=== PATIENT | male | born 1950 | race Caucasian/White ===

== ENCOUNTER → 2017-03-19 08:31 | Outpatient (CLI) | payer OTHER, SELFPAY ==
[2017-03-19 12:03] LABS: Chol/HDL Ratio 2.1 (1-3.5); Cholesterol 142 mg/dL (140-200); HDL Cholesterol 69 mg/dL (27-67); LDL Cholesterol 61 mg/dL (0-130); Thyroid Stimulating Hormone 2.69 uIU/ml (0.358-3.740); Triglycerides 58 mg/dL (30-200); VLDL Cholesterol 12 mg/dL (0-40)
[2017-03-21 18:17] LABS: Parathyroid Hormone Intact 60 pg/mL (15-65)
[2017-03-21 18:18] LABS: Vitamin D 25 Hydroxy 34.6 ng/mL (30.0-100.0)
== END ==
PROVIDERS: PCP Family Medicine; Visit Provider Internal Medicine Nephrology
DX: E78.5 Hyperlipidemia, unspecified (principal); I10 Essential (primary) hypertension; E03.9 Hypothyroidism, unspecified; E56.9 Vitamin deficiency, unspecified; N18.3 Chronic kidney disease, stage 3 (moderate); Z85.47 Personal history of malignant neoplasm of testis
CPT/HCPCS: 36415; 80061; 82652; 83970; 84443; 84550

== ENCOUNTER → 2017-07-23 08:30 | Outpatient (CLI) | payer OTHER, SELFPAY ==
[2017-07-23 13:03] LABS: Chol/HDL Ratio 2.3 (1-3.5); Cholesterol 131 mg/dL (140-200); HDL Cholesterol 56 mg/dL (27-67); LDL Cholesterol 60 mg/dL (0-130); Thyroid Stimulating Hormone 1.34 uIU/ml (0.358-3.740); Triglycerides 74 mg/dL (30-200); Uric Acid 6.9 mg/dL (2.6-7.2); VLDL Cholesterol 15 mg/dL (0-40)
[2017-07-24 10:09] LABS: Vitamin D 25 Hydroxy 32.9 ng/mL (30.0-100.0)
[2017-07-27 13:26] LABS: Parathyroid Hormone Intact 57 pg/mL (15-65)
== END ==
PROVIDERS: Visit Provider Internal Medicine Nephrology
DX: E78.5 Hyperlipidemia, unspecified (principal); I10 Essential (primary) hypertension; E03.9 Hypothyroidism, unspecified; E56.9 Vitamin deficiency, unspecified; Z85.47 Personal history of malignant neoplasm of testis; N18.3 Chronic kidney disease, stage 3 (moderate)
CPT/HCPCS: 36415; 80061; 82652; 83970; 84443; 84550

== ENCOUNTER → 2018-01-21 09:12 | Outpatient (CLI) | payer MEDICARE, SELFPAY ==
[2018-01-21 10:29] LABS: Chol/HDL Ratio 1.9 (1-3.5); Cholesterol 140 mg/dL (140-200); HDL Cholesterol 75 mg/dL (27-67); LDL Cholesterol 56 mg/dL (0-130); Thyroid Stimulating Hormone 2.02 uIU/ml (0.358-3.740); Triglycerides 45 mg/dL (30-200); Uric Acid 6.3 mg/dL (2.6-7.2); VLDL Cholesterol 9 mg/dL (0-40)
[2018-01-22 09:16] LABS: Vitamin D 25 Hydroxy 26.6 ng/mL (30.0-100.0)
[2018-01-23 07:02] LABS: Parathyroid Hormone Intact 53 pg/mL (15-65)
== END ==
PROVIDERS: Visit Provider Internal Medicine Nephrology
DX: E78.5 Hyperlipidemia, unspecified; E03.9 Hypothyroidism, unspecified; E55.9 Vitamin D deficiency, unspecified; N18.3 Chronic kidney disease, stage 3 (moderate); Z85.47 Personal history of malignant neoplasm of testis
CPT/HCPCS: 36415; 80061; 82652; 83970; 84443; 84550

== ENCOUNTER → 2018-05-06 08:20 | Outpatient (CLI) | payer MEDICARE, SELFPAY ==
[2018-05-06 10:02] LABS: Magnesium 1.8 mg/dL (1.4-2.2); Uric Acid 6.6 mg/dL (2.6-7.2)
[2018-05-07 15:32] LABS: Parathyroid Hormone Intact 44 pg/mL (15-65)
== END ==
PROVIDERS: Visit Provider Internal Medicine Nephrology
DX: N18.3 Chronic kidney disease, stage 3 (moderate) (principal); E78.5 Hyperlipidemia, unspecified; E03.9 Hypothyroidism, unspecified; E56.9 Vitamin deficiency, unspecified; Z85.47 Personal history of malignant neoplasm of testis
CPT/HCPCS: 36415; 82652; 83735; 83970; 84550

== ENCOUNTER 2018-07-27 15:15 | Emergency (ER) | payer MEDICARE, SELFPAY ==
[2018-07-27 15:30] VITALS: BP 139/71; PULSE 71; RESP 16; TEMP 36.9; O2SAT 100; BMI 22.5
--- NOTE | 2018-07-27 15:48 | HMH.EDUTC ---
[facility] [place] Disposition Clinical Impression: Urticaria Disposition: Home, Self-Care Condition on Discharge: Good Instructions: DI for Hives, Hives, Urticaria (Alternative Therapy) Additional Instructions: Go home look at everything and make sure that nothing has changed at home *Follow up with family doctor if symptoms continue *Return if needed *Straight to ER if any life threatening symptoms Over the counter Benadryl if you have been told that it is ok to take at first onset of rash may help with itching and breakout of rash Referrals: Nura Teran MD [Primary Care Provider] - As needed Time of Disposition: 15:57 Medical Decision Making - Alonzo Inquiry Pt receiving controlled substance: No Alonzo was queried for this patient: No Vital Signs: 07/27/18 15:30 Temperature 98.5 F Temperature Source Oral Pulse Rate [Right Brachial] 71 Respiratory Rate 16 Blood Pressure [Right Arm] 139/71 Blood Pressure Mean [Right Arm] 93 Blood Pressure Source [Right Arm] Automatic Cuff Blood Pressure Position [Right Arm] Sitting 02 Sat by Pulse Oximetry 100 Oxygen Delivery Method Room Air [facility] [place] HPI - General Stated complaint: Rash Time Seen by Provider: 07/27/18 15:45 Mode of Arrival: Family Vehicle Source of Information: Patient Limitations: No Limitations Description of Symptoms (Recalled from Triage Doc. by RN): C/O BROKE OUT IN RASH UNDER ARMS AND AROUND WAIST HEENT Symptoms (Recalled from RN notes): No Resp Symptoms (Recalled from RN notes): No Skin Symptoms (Recalled from RN notes): Yes MS Symptoms (Recalled from RN notes): No Functional Status (Recalled from RN notes): N/A - History of Present Illness Provider Complaint: Patient states that he was outside spraying his tomatoes earlier today and then drove to [place] State that on his way to [place] he started itching States that he looked down and noticed rash on his chest abdomen upper arms and waistline State that he hasn't changed anything at home State that he came home and got in the shower and changed clothes and rash is a little better - Related Data Home Medications Medication Instructions Recorded Confirmed amlodipine 5 mg tablet 5 mg PO ONCE 09/04/17 05/28/18 aspirin 81 mg tablet,delayed 81 mg PO ONCE 09/04/17 05/28/18 release atorvastatin 40 mg tablet 20 mg PO ONCE 09/04/17 05/28/18 doxazosin 1 mg tablet 2 mg PO ONCE 09/04/17 05/28/18 levothyroxine 25 mcg capsule 50 mcg PO ONCE 09/04/17 05/28/18 trazodone 50 mg tablet 50 mg PO ONCE 09/04/17 05/28/18 vitamin B complex-vitamin C-folic 1 tab PO ONCE 09/04/17 05/28/18 acid 0.8 mg tablet Folic Acid/Vit B Complex and C 0.8 mg PO DAILY 09/26/17 05/28/18 [Trudi-Dain Tablet] Allergies Allergy/AdvReac Type Severity Reaction Status Date / Time No Known Allergies Allergy Verified 05/28/18 12:27 - Worker's Comp Is this a Worker's Comp case?: No [facility] History - Hepatitis A Screen Drug use history?: No High risk sexual behaviors?: No History of sexually transmitted infection?: No Currently employed?: No Childcare worker?: No Do you have indoor plumbing?: Yes Do you have electricity?: Yes Attestation statement:: This patient has been screened for Hepatitis A risk factors. I have reviewed the patient's past medical history: Yes Medical History: Reports:: Cancer, Hyperlipidemia, Hypertension Denies:: Diabetes Mellitus Type 1, Diabetes Mellitus Type 2, Internal Pacemaker, Lung Disease, Seizures Other Medical History: Reports: Thyroid Disease, Other (easy bruising) Laterality Cases: Bilateral: Tonsillectomy Other Surgeries: Yes: Cancer Surgery, Colonoscopy, Other (testicular ). No: Pacemaker Amputation: No Fractures: No - Social History Smoking Status: Never smoker Alcohol Intake: never Substance Use Type: denies use Occupational Status: retired - Psychiatric History Expresses thoughts of harming self/others: None Suicide Plan Description: No Plan Family Hx:: No signifi
--- NOTE | 2018-07-27 15:52 | ED_ITS ---
[facility] [place] Disposition Clinical Impression: Urticaria Disposition: Home, Self-Care Condition on Discharge: Good Instructions: DI for Hives, Hives, Urticaria (Alternative Therapy) Additional Instructions: Go home look at everything and make sure that nothing has changed at home *Follow up with family doctor if symptoms continue *Return if needed *Straight to ER if any life threatening symptoms Over the counter Benadryl if you have been told that it is ok to take at first onset of rash may help with itching and breakout of rash Referrals: Nura Teran MD [Primary Care Provider] - As needed Time of Disposition: 15:57 Medical Decision Making - Alonzo Inquiry Pt receiving controlled substance: No Alonzo was queried for this patient: No Vital Signs: 07/27/18 15:30 Temperature 98.5 F Temperature Source Oral Pulse Rate [Right Brachial] 71 Respiratory Rate 16 Blood Pressure [Right Arm] 139/71 Blood Pressure Mean [Right Arm] 93 Blood Pressure Source [Right Arm] Automatic Cuff Blood Pressure Position [Right Arm] Sitting 02 Sat by Pulse Oximetry 100 Oxygen Delivery Method Room Air [facility] [place] HPI - General Stated complaint: Rash Time Seen by Provider: 07/27/18 15:45 Mode of Arrival: Family Vehicle Source of Information: Patient Limitations: No Limitations Description of Symptoms (Recalled from Triage Doc. by RN): C/O BROKE OUT IN RASH UNDER ARMS AND AROUND WAIST HEENT Symptoms (Recalled from RN notes): No Resp Symptoms (Recalled from RN notes): No Skin Symptoms (Recalled from RN notes): Yes MS Symptoms (Recalled from RN notes): No Functional Status (Recalled from RN notes): N/A - History of Present Illness Provider Complaint: Patient states that he was outside spraying his tomatoes earlier today and then drove to [place] State that on his way to [place] he started itching States that he looked down and noticed rash on his chest abdomen upper arms and waistline State that he hasn't changed anything at home State that he came home and got in the shower and changed clothes and rash is a little better - Related Data Home Medications Medication Instructions Recorded Confirmed amlodipine 5 mg tablet 5 mg PO ONCE 09/04/17 05/28/18 aspirin 81 mg tablet,delayed 81 mg PO ONCE 09/04/17 05/28/18 release atorvastatin 40 mg tablet 20 mg PO ONCE 09/04/17 05/28/18 doxazosin 1 mg tablet 2 mg PO ONCE 09/04/17 05/28/18 levothyroxine 25 mcg capsule 50 mcg PO ONCE 09/04/17 05/28/18 trazodone 50 mg tablet 50 mg PO ONCE 09/04/17 05/28/18 vitamin B complex-vitamin C-folic 1 tab PO ONCE 09/04/17 05/28/18 acid 0.8 mg tablet Folic Acid/Vit B Complex and C 0.8 mg PO DAILY 09/26/17 05/28/18 [Trudi-Dain Tablet] Allergies Allergy/AdvReac Type Severity Reaction Status Date / Time No Known Allergies Allergy Verified 05/28/18 12:27 - Worker's Comp Is this a Worker's Comp case?: No [facility] History - Hepatitis A Screen Drug use history?: No High risk sexual behaviors?: No History of sexually transmitted infection?: No Currently employed?: No Childcare worker?: No Do you have indoor plumbing?: Yes Do you have electricity?: Yes Attestation statement:: This patient has been screened for Hepatitis A risk factors.
[2018-07-27 16:18] VITALS: BP 139/71; PULSE 71; RESP 16; TEMP 36.9; O2SAT 100
== END 2018-07-27 16:20 | disposition home or self-care (01) ==
PROVIDERS: Emergency Provider Nurse Practitioner; PCP Family Medicine
DX: L50.0 Allergic urticaria (principal); I10 Essential (primary) hypertension; E78.5 Hyperlipidemia, unspecified; E03.9 Hypothyroidism, unspecified
CPT/HCPCS: G0463; 96372; 99201

== ENCOUNTER → 2018-09-09 08:11 | Outpatient (CLI) | payer MEDICARE, SELFPAY ==
[2018-09-09 08:15] LABS: Microscopic, Urine URINE MICROSCOPIC (MICROSCOPIC)
[2018-09-09 09:01] LABS: Appearance,Urine CLEAR (Clear); Bilirubin,Urine Negative (Negative); Blood, Urine Negative (Negative); Color,Urine YELLOW (Yellow); Glucose,Urine (UA) Negative (Negative); Ketones,Urine Negative (Negative); Leukocyte Esterase,Urine Negative (Negative); Nitrate,Urine Negative (Negative); Protein,Urine Negative (Negative); Urobilinogen,Urine 0.2 EU/dl (0.2)
[2018-09-09 09:15] LABS: Albumin Level 3.6 gm/dL (3.4-5.0); Anion Gap 12.5 mEq/L (5-15); Blood Urea Nitrogen 27 mg/dL (7-18); Calcium 8.8 mg/dL (8.5-10.1); Carbon Dioxide 28 mmol/L (21.0-32.0); Chloride 107 mmol/L (98-107); Creatinine,Serum 1.83 mg/dL (0.70-1.30); Estimated Glomerular Filt Rate 37 ml/min (>60); GFR (African American) 45 ML/MIN (>60); Glucose 96 mg/dL (74-106); Phosphorous 3.5 mg/dL (2.4-4.9); Potassium 4.5 mmoL/L (3.5-5.1); Sodium 143 mmol/L (136-145); Uric Acid 7.3 mg/dL (2.6-7.2)
[2018-09-09 09:24] LABS: Bacteria,Urine Trace /lpf; WBC,Urine Occasional #/hpf (0-3)
[2018-09-11 14:19] LABS: Vitamin D 25 Hydroxy 37.2 ng/mL (30.0-100.0)
[2018-09-12 10:37] LABS: Parathyroid Hormone Intact 38 pg/mL (15-65)
== END ==
PROVIDERS: Visit Provider Internal Medicine Nephrology
DX: N18.3 Chronic kidney disease, stage 3 (moderate) (principal); E78.5 Hyperlipidemia, unspecified; E55.9 Vitamin D deficiency, unspecified; I12.9 Hypertensive chronic kidney disease with stage 1 through stage 4 chronic kidney disease, or unspecified chronic kidney disease
CPT/HCPCS: 36415; 80069; 81001; 82652; 83970; 84550

== ENCOUNTER → 2019-02-17 07:19 | Outpatient (CLI) | payer MEDICARE, SELFPAY ==
[2019-02-17 07:26] LABS: Microscopic, Urine URINE MICROSCOPIC (MICROSCOPIC)
[2019-02-17 07:54] LABS: Appearance,Urine CLEAR (Clear); Bilirubin,Urine Negative (Negative); Blood, Urine Negative (Negative); Color,Urine YELLOW (Yellow); Glucose,Urine (UA) Negative (Negative); Ketones,Urine Negative (Negative); Leukocyte Esterase,Urine Negative (Negative); Nitrate,Urine Negative (Negative); PH,Urine 6.5 (5.0-8.5); Protein,Urine Negative (Negative); Urobilinogen,Urine 0.2 EU/dl (0.2)
[2019-02-17 08:10] LABS: Squamous Epithelial Cell,Urine Occasional #/hpf (0-5); WBC,Urine Occasional #/hpf (0-3)
[2019-02-17 08:58] LABS: Uric Acid 7.1 mg/dL (2.6-7.2)
[2019-02-18 12:10] LABS: Albumin Level 3.9 gm/dL (3.4-5.0); Anion Gap 14.5 mEq/L (5-15); Blood Urea Nitrogen 32 mg/dL (7-18); Calcium 8.6 mg/dL (8.5-10.1); Carbon Dioxide 26 mmol/L (21.0-32.0); Chloride 106 mmol/L (98-107); Creatinine,Serum 1.86 mg/dL (0.70-1.30); Estimated Glomerular Filt Rate 37 ml/min (>60); GFR (African American) 44 ML/MIN (>60); Glucose 92 mg/dL (74-106); Phosphorous 3.8 mg/dL (2.4-4.9); Potassium 4.5 mmoL/L (3.5-5.1); Sodium 142 mmol/L (136-145)
[2019-02-18 16:10] LABS: Vitamin D 25 Hydroxy 29.7 ng/mL (30.0-100.0)
[2019-02-19 11:03] LABS: Parathyroid Hormone Intact 38 pg/mL (15-65)
== END ==
PROVIDERS: Visit Provider Internal Medicine Nephrology
DX: N18.3 Chronic kidney disease, stage 3 (moderate) (principal); E03.9 Hypothyroidism, unspecified; E78.5 Hyperlipidemia, unspecified; E56.9 Vitamin deficiency, unspecified; Z85.47 Personal history of malignant neoplasm of testis
CPT/HCPCS: 36415; 80069; 81001; 82652; 83970; 84550

== ENCOUNTER → 2019-05-27 10:38 | Outpatient (CLI) | payer MEDICARE, SELFPAY ==
[2019-05-27 12:23] LABS: Prostate Specific Ag Screen 1.1 ng/ml (0.0-4.0)
== END ==
PROVIDERS: Visit Provider Urology
DX: Z12.5 Encounter for screening for malignant neoplasm of prostate (principal)
CPT/HCPCS: 36415; G0103

== ENCOUNTER → 2019-08-04 14:18 | Outpatient (CLI) | payer MEDICARE, SELFPAY ==
--- NOTE | 2019-08-04 14:42 | ECG_ITS ---
APPROVED REPORT Exam: Resting ECG HR:61 bpm ECG Measurements Heart Rate 61 AXES RI 130 P 72 QRSd 86 QRS 85 QT 466 T 56 QTc 469 <Conclusion> Normal sinus rhythm Normal ECG Electronically signed by : Mendel Roe, 08/04/2019 17:26:14
== END ==
PROVIDERS: PCP Family Medicine; Visit Provider Family Medicine
DX: I49.9 Cardiac arrhythmia, unspecified (principal)
CPT/HCPCS: 93005

== ENCOUNTER → 2019-08-13 08:26 | Outpatient (CLI) | payer MEDICARE, SELFPAY ==
[2019-08-13 08:32] LABS: Microscopic, Urine URINE MICROSCOPIC (MICROSCOPIC)
[2019-08-13 10:23] LABS: Chloride 106 mmol/L (98-107); Sodium 137 mmol/L (136-145)
[2019-08-13 10:24] LABS: Albumin Level 4.2 g/dl (3.5-5.0); Potassium 5.3 mmoL/L (3.5-5.1)
[2019-08-13 10:26] LABS: Anion Gap 8.3 mEq/L (5-15); Blood Urea Nitrogen 28 mg/dl (9-20); Carbon Dioxide 28 mmol/L (22.0-30.0); Estimated Glomerular Filt Rate 41 ml/min (>60); GFR (African American) 49 ML/MIN (>60); Phosphorous 3.6 mg/dl (2.5-4.5)
[2019-08-13 10:27] LABS: Calcium 9.3 mg/dl (8.4-10.2); Glucose 93 mg/dl (74-100)
[2019-08-13 10:40] LABS: Intact Parathyroid Hormone 96.9 pg/mL (7.5-53.5)
[2019-08-13 10:45] LABS: 25-OH Vitamin D, Total 56.4 ng/mL (30-100)
[2019-08-13 10:59] LABS: Thyroid Stimulating Hormone 3.18 uIU/mL (0.465-4.68)
[2019-08-13 11:08] LABS: Appearance,Urine CLEAR (Clear); Bilirubin,Urine Negative (Negative); Blood, Urine Negative (Negative); Color,Urine YELLOW (Yellow); Glucose,Urine (UA) Negative (Negative); Ketones,Urine Negative (Negative); Leukocyte Esterase,Urine Negative (Negative); Nitrate,Urine Negative (Negative); Protein,Urine Negative (Negative); Specific Gravity, Urine 1.015 (1.005-1.030); Urobilinogen,Urine 0.2 EU/dl (0.2)
[2019-08-13 11:32] LABS: Squamous Epithelial Cell,Urine Occasional #/hpf (0-5); WBC,Urine Occasional #/hpf (0-3)
== END ==
PROVIDERS: Visit Provider Internal Medicine Nephrology
DX: N18.3 Chronic kidney disease, stage 3 (moderate) (principal); E03.9 Hypothyroidism, unspecified; E78.5 Hyperlipidemia, unspecified; E56.9 Vitamin deficiency, unspecified; I12.9 Hypertensive chronic kidney disease with stage 1 through stage 4 chronic kidney disease, or unspecified chronic kidney disease
CPT/HCPCS: 36415; 80069; 81001; 82306; 83970; 84443

== ENCOUNTER → 2020-02-25 06:58 | Outpatient (CLI) | payer MEDICARE, SELFPAY ==
[2020-02-25 07:03] LABS: Microscopic, Urine URINE MICROSCOPIC (MICROSCOPIC)
[2020-02-25 08:05] LABS: Appearance,Urine CLEAR (Clear); Bilirubin,Urine Negative (Negative); Blood, Urine Negative (Negative); Color,Urine YELLOW (Yellow); Glucose,Urine (UA) Negative (Negative); Ketones,Urine Negative (Negative); Leukocyte Esterase,Urine Negative (Negative); Nitrate,Urine Negative (Negative); Protein,Urine Negative (Negative); Urobilinogen,Urine 0.2 EU/dl (0.2)
[2020-02-25 08:08] LABS: Albumin Level 4.5 g/dl (3.5-5.0); Blood Urea Nitrogen 26 mg/dl (9-20); Calcium 9.7 mg/dl (8.4-10.2); Carbon Dioxide 29 mmol/L (22.0-30.0); Chloride 106 mmol/L (98-107); Estimated Glomerular Filt Rate 36 ml/min (>60); GFR (African American) 43 ML/MIN (>60); Glucose 100 mg/dl (74-100); Phosphorous 3.8 mg/dl (2.5-4.5); Sodium 141 mmol/L (136-145)
[2020-02-25 08:21] LABS: Intact Parathyroid Hormone 90.8 pg/mL (7.5-53.5)
[2020-02-25 08:24] LABS: 25-OH Vitamin D, Total 47.2 ng/mL (30-100)
[2020-02-25 08:39] LABS: Thyroid Stimulating Hormone 3.49 uIU/mL (0.465-4.68)
== END ==
PROVIDERS: Visit Provider Internal Medicine Nephrology
DX: N18.30 Chronic kidney disease, stage 3 unspecified (principal); I12.9 Hypertensive chronic kidney disease with stage 1 through stage 4 chronic kidney disease, or unspecified chronic kidney disease; E03.9 Hypothyroidism, unspecified; E56.9 Vitamin deficiency, unspecified
CPT/HCPCS: 36415; 80069; 81001; 82306; 83970; 84443

== ENCOUNTER → 2020-03-05 13:30 | Outpatient (POV) | payer MEDICARE, SELFPAY | PROVIDERS: Visit Provider Internal Medicine Nephrology | DX: Z00.00 Encounter for general adult medical examination without abnormal findings (principal) ==

== ENCOUNTER → 2020-07-02 07:07 | Outpatient (CLI) | payer MEDICARE, SELFPAY ==
[2020-07-02 07:11] LABS: Microscopic, Urine URINE MICROSCOPIC (MICROSCOPIC)
[2020-07-02 07:51] LABS: Appearance,Urine CLEAR (Clear); Bilirubin,Urine Negative (Negative); Blood, Urine Negative (Negative); Color,Urine YELLOW (Yellow); Glucose,Urine (UA) Negative (Negative); Ketones,Urine Negative (Negative); Leukocyte Esterase,Urine Negative (Negative); Nitrate,Urine Negative (Negative); PH,Urine 5.5 (5.0-8.5); Protein,Urine Negative (Negative); Urobilinogen,Urine 0.2 EU/dl (0.2)
[2020-07-02 07:53] LABS: Hematocrit 38.7 % (42.0-52.0); Hemoglobin 12.6 g/dL (14.1-18.0); Mean Corpuscular HGB Conc 32.7 g/dL (31.8-35.4); Mean Corpuscular Volume 94.7 fl (80-94); Platelet Count 166 K/mm3 (142-424); Red Blood Count 4.08 M/mm3 (4.60-6.20); Red Cell Distribution Width 13.7 % (11.5-17.5); White Blood Count 5.9 K/mm3 (4.8-10.8)
[2020-07-02 08:00] LABS: Squamous Epithelial Cell,Urine Occasional #/hpf (0-5)
[2020-07-02 09:06] LABS: Alanine Aminotransferase 23 U/L (12-78); Albumin Level 4.2 g/dl (3.5-5.0); Albumin/Globulin Ratio 1.7 (1.1-1.8); Alkaline Phosphatase 80 U/L (38-126); Anion Gap 9.4 mEq/L (5-15); Aspartate Amino Transferase 33 U/L (17-59); Bilirubin,Total 0.7 mg/dl (0.2-1.3); Blood Urea Nitrogen 36 mg/dl (9-20); Calcium 8.8 mg/dl (8.4-10.2); Carbon Dioxide 28 mmol/L (22.0-30.0); Chloride 108 mmol/L (98-107); Estimated Glomerular Filt Rate 36 ml/min (>60); GFR (African American) 43 ML/MIN (>60); Globulin 2.5 g/dL (1.3-3.2); Glucose 89 mg/dl (74-100); Potassium 4.4 mmoL/L (3.5-5.1); Sodium 141 mmol/L (136-145); Total Protein,Serum 6.7 g/dl (6.3-8.2); Uric Acid 8.2 mg/dl (3.5-8.5)
[2020-07-02 09:16] LABS: Intact Parathyroid Hormone 103.2 pg/mL (7.5-53.5)
[2020-07-02 09:21] LABS: 25-OH Vitamin D, Total 53.9 ng/mL (30-100)
== END ==
PROVIDERS: Visit Provider Internal Medicine Nephrology
DX: N18.30 Chronic kidney disease, stage 3 unspecified (principal); E03.9 Hypothyroidism, unspecified; E55.9 Vitamin D deficiency, unspecified
CPT/HCPCS: 36415; 80053; 81001; 82306; 83970; 84550; 85014; 85018; 85048; 85049

== ENCOUNTER → 2020-07-09 13:38 | Outpatient (POV) | payer MEDICARE, SELFPAY | PROVIDERS: Visit Provider Internal Medicine Nephrology | DX: Z00.00 Encounter for general adult medical examination without abnormal findings (principal) ==

== ENCOUNTER → 2020-08-03 07:39 | Outpatient (CLI) | payer MEDICARE, SELFPAY ==
--- NOTE | 2020-08-03 07:44 | CA_ITS ---
APPROVED REPORT Cloth Checker: Cristina Knutson RVT Study Quality: Good Indications: HTN,CKD STAGE 3 Risk Factors Hypertension Renal Artery Doppler Origin (R) 154.7/ cm/sec Proximal (R) 131.1/ cm/sec Mid (R) 124.7/ cm/sec Distal (R) 106.7/ cm/sec Renal Aorta Ratio (R) 1.17 Segmental A. (R) 50.1/18.5 cm/sec RI: 0.63 Segmental A. Sup (R) 50.1/18.5 cm/sec Segmental A. Mid (R) 26.4/10.5 cm/sec Segmental A. Inf (R) 33.4/15.8 cm/sec Origin (L) 84.8/ cm/sec Proximal (L) 95.1/ cm/sec Mid (L) 151.7/ cm/sec Distal (L) 110.5/ cm/sec Renal Aorta Ratio (L) 1.15 Segmental A. (L) 54.9/17.9 cm/sec RI: 0.67 Segmental A. Sup (L) 51.5/23.5 cm/sec Segmental A. Mid (L) 54.9/17.9 cm/sec Segmental A. Inf (L) 39.3/17.0 cm/sec Renal Measurements Kidney Size (R) 8.6x4.2 cm Cortical Thickness (R) 1.0 cm Kidney Size (L) 10.2x6.3 cm Cortical Thickness (L) 1.6 cm Findings Study suggests no evidence of stenosis of the bilateral renal arteries. 1.8 X 1.4 cm cyst mid pole right kidney. 1.4 X 1.5 cm cyst lower pole right kidney. Conclusion Study suggests no evidence of stenosis of the bilateral renal arteries. 1.8 X 1.4 cm cyst mid pole right kidney. 1.4 X 1.5 cm cyst lower pole right kidney. Electronically signed by : Elbert Suh MD 08/03/2020 15:35:04
--- NOTE | 2020-08-03 08:31 | US_ITS ---
PROCEDURE: US KIDNEY CLINICAL INDICATION: HTN,ENLARGED PROSTATE,CKD STAGE 3,VIT D DEFICIENCY COMPARISON: US KID US [id number] from 12/01/2014 US CA RENAL ARTERY DUPLEX from 08/03/2020 FINDINGS: The right kidney is 9 x 4 x 3 cm. No hydronephrosis. A 16 mm cyst is present in the mid polar region and a 14 mm cyst is present in the lower pole. The cyst margins are somewhat irregular. There is mild cortical thinning of the right kidney. The left kidney is 10 x 4 x 4 cm. No hydronephrosis mass or perinephric fluid collection. IMPRESSION: Mild cortical thinning of the right kidney with 2 cysts which have developed in the interval with some irregularity of the cyst margin. Suggest 6 month follow-up to confirm stability. No hydronephrosis Dictated by: Elbert Suh MD 08/03/2020 09:10 Elbert Suh MD in OV 08/03/2020 09:10
== END ==
PROVIDERS: PCP Family Medicine; Visit Provider Internal Medicine Nephrology
DX: I12.9 Hypertensive chronic kidney disease with stage 1 through stage 4 chronic kidney disease, or unspecified chronic kidney disease (principal); N18.30 Chronic kidney disease, stage 3 unspecified; E55.9 Vitamin D deficiency, unspecified; E03.9 Hypothyroidism, unspecified; N40.0 Benign prostatic hyperplasia without lower urinary tract symptoms
CPT/HCPCS: 76770; 93976

== ENCOUNTER → 2020-10-26 07:13 | Outpatient (CLI) | payer MEDICARE, SELFPAY ==
[2020-10-26 07:17] LABS: Microscopic, Urine URINE MICROSCOPIC (MICROSCOPIC)
[2020-10-26 07:51] LABS: Hematocrit 40.8 % (42.0-52.0); Hemoglobin 12.6 g/dL (14.1-18.0); Mean Corpuscular HGB Conc 30.9 g/dL (31.8-35.4); Mean Corpuscular Hemoglobin 30.7 pg (27.0-31.2); Mean Corpuscular Volume 99.4 fl (80-94); Platelet Count 165 K/mm3 (142-424); Red Blood Count 4.11 M/mm3 (4.60-6.20); Red Cell Distribution Width 13.6 % (11.5-17.5); White Blood Count 6.2 K/mm3 (4.8-10.8)
[2020-10-26 08:20] LABS: Alanine Aminotransferase 28 U/L (12-78); Albumin/Globulin Ratio 1.5 (1.1-1.8); Alkaline Phosphatase 81 U/L (38-126); Anion Gap 14.1 mEq/L (5-15); Aspartate Amino Transferase 38 U/L (17-59); Bilirubin,Total 0.6 mg/dl (0.2-1.3); Blood Urea Nitrogen 34 mg/dl (9-20); Calcium 9.2 mg/dl (8.4-10.2); Carbon Dioxide 27 mmol/L (22.0-30.0); Chloride 105 mmol/L (98-107); Estimated Glomerular Filt Rate 33 ml/min (>60); GFR (African American) 41 ML/MIN (>60); Globulin 2.6 g/dL (1.3-3.2); Glucose 84 mg/dl (74-100); Potassium 5.1 mmoL/L (3.5-5.1); Sodium 141 mmol/L (136-145); Total Protein,Serum 6.6 g/dl (6.3-8.2)
[2020-10-26 08:31] LABS: Intact Parathyroid Hormone 64.5 pg/mL (7.5-53.5)
[2020-10-26 08:36] LABS: 25-OH Vitamin D, Total 45.1 ng/mL (30-100)
[2020-10-26 12:46] LABS: Appearance,Urine CLEAR (Clear); Bilirubin,Urine Negative (Negative); Blood, Urine Negative (Negative); Color,Urine YELLOW (Yellow); Glucose,Urine (UA) Negative (Negative); Ketones,Urine Negative (Negative); Leukocyte Esterase,Urine Negative (Negative); Nitrate,Urine Negative (Negative); PH,Urine 6.5 (5.0-8.5); Protein,Urine Negative (Negative); Urobilinogen,Urine 0.2 EU/dl (0.2)
[2020-10-26 12:56] LABS: Bacteria,Urine Trace /lpf; Transitional Epi Cells,Urine OCC #/lpf (0-3)
== END ==
PROVIDERS: Visit Provider Internal Medicine Nephrology
DX: I12.9 Hypertensive chronic kidney disease with stage 1 through stage 4 chronic kidney disease, or unspecified chronic kidney disease (principal); N18.30 Chronic kidney disease, stage 3 unspecified; E03.9 Hypothyroidism, unspecified; E55.9 Vitamin D deficiency, unspecified; N40.0 Benign prostatic hyperplasia without lower urinary tract symptoms
CPT/HCPCS: 36415; 80053; 81001; 82306; 83970; 85014; 85018; 85048; 85049

== ENCOUNTER → 2020-11-02 10:08 | Outpatient (CLI) | payer MEDICARE, SELFPAY | PROVIDERS: Visit Provider Surgery | DX: Z01.812 Encounter for preprocedural laboratory examination (principal); Z11.52 Encounter for screening for COVID-19; Z12.11 Encounter for screening for malignant neoplasm of colon | CPT/HCPCS: C9803; U0003; U0005 ==

== ENCOUNTER 2020-11-04 07:28 | Day surgery (SDC) | payer MEDICARE, SELFPAY ==
[2020-11-02 10:30] VITALS: BMI 19.8
[2020-11-04] VITALS (7 sets, daily range): BP systolic 79–142; BP diastolic 38–70; PULSE 56–72; RESP 18–20; TEMP 36.4–36.7; O2SAT 97–100
--- NOTE | 2020-11-04 09:20 | HMH.SCOPE ---
- Procedure: Date: 11/04/20 Patient Date of :: 1950 Procedure Performed:: Colonoscopy with polypectomy by means other than snare Indications:: History of colon polyps Performing Provider:: Chris Celestin MD Referring Provider:: . Sedation:: Monitored anesthesia care Procedure:: After informed consent was obtained the patient was taken to the endoscopy suite. Sedation ensued after the patient was transferred to the left lateral decubitus position. Pulse, blood pressure, and oxygen saturation were monitored throughout the procedure. Digital rectal exam revealed no significant abnormality. The colonoscope was placed in position. The entire colon was evaluated. The colonoscope was carefully removed and the patient was transferred to recovery in stable condition. Please see findings and specimens below for detail. Findings:: Moderate bowel preparation Significant tortuosity with severe spasticity Minuscule scattered sigmoid diverticulosis Small right colon polyp Specimens:: Right colon polyp Recommendations:: Timing of repeat colonoscopy is pending pathology but will likely be around 3 years secondary to history of polyps, moderate bowel preparation, tortuosity, and spasticity. Complications:: No immediate Estimated blood obtained (mL): 1
--- NOTE | 2020-11-04 10:11 | P.PN_ITS ---
[facility] Anesthesia Checklist - Patient Identification Patient Identification: Arm Band, Verbal (Name & ) - Structural Data Admitted From: Home Planned Operative Procedure/s: colon Consent for Planned Operative Procedure(s) Verified: Yes Verified Documents: History and Physical - NPO Status Verified Time NPO: 00:00 - Additional verifications Patient : No Anesthesia Reactions: No Hx Blood Transfusions: No Blood Transfusion Reaction: No Cephalosporin Allergy: No Previous Colonoscopy: Yes - Cardiovascular Assessment Heart Sounds: S1 & S2 Pulse Strength: Baseline Pulse Rhythm: Regular Peripheral Edema: No - Airway Assessment C-Spine Mobility Assessed: Yes TMJ Mobility Assessed: Yes Dentition: Good Dentition - Neurological Assessment Level of Consciousness: Awake, Alert, Appropriate Hx Seizures: No Numbness or tingling in extremities: No - Anesthesia Plan Anesthesia Risk discussed: Yes Anesthesia Plan: Verified ASA Class: II Anesthesia Type: MAC [facility] History I have reviewed the patient's past medical history: Yes Medical History: Reports:: Cancer (testicular), Hyperlipidemia, Hypertension Denies:: Diabetes Mellitus Type 1, Diabetes Mellitus Type 2, Internal Pacemaker, Lung Disease, MRSA, Seizures *Have you ever received a pneumonia vaccine?: Yes *Have you received a flu vaccine this season?: Yes Other Medical History: Reports: Thyroid Disease, Other Anesthesia experience/problems:: none Laterality Cases: Bilateral: Tonsillectomy Other Surgeries: Yes: No Previous Surgery, Cancer Surgery, Colonoscopy, Other (testicular ). No: Pacemaker Amputation: No Fractures: No - *Social History Last grade of school completed: High school graduate Smoking Status: Never smoker Alcohol Intake: never Substance Use Type: denies use *Occupational Status:: retired Housing: house Household Members: spouse *Travel in the last 8 weeks: None Family Hx:: No significant family history
== END 2020-11-04 10:15 | disposition home or self-care (01) ==
LOC: OUTP 07:30
PROVIDERS: PCP Family Medicine; Visit Provider Surgery
PROC: 0DJD8ZZ Inspection of Lower Intestinal Tract, Via Natural or Artificial Opening Endoscopic (ICD-10-PCS; principal; 2020-11-04 08:30)
DX: Z12.11 Encounter for screening for malignant neoplasm of colon (principal); K56.2 Volvulus; K57.32 Diverticulitis of large intestine without perforation or abscess without bleeding; K63.5 Polyp of colon; K58.9 Irritable bowel syndrome, unspecified; I10 Essential (primary) hypertension; E78.5 Hyperlipidemia, unspecified; Z85.47 Personal history of malignant neoplasm of testis; Z79.01 Long term (current) use of anticoagulants; Z79.899 Other long term (current) drug therapy
CPT/HCPCS: 45380; 88305; J2704

== ENCOUNTER → 2020-11-05 14:58 | Outpatient (POV) | payer MEDICARE, SELFPAY | PROVIDERS: Visit Provider Internal Medicine Nephrology | DX: Z00.00 Encounter for general adult medical examination without abnormal findings (principal) ==

== ENCOUNTER → 2020-11-15 08:01 | Outpatient (CLI) | payer MEDICARE, SELFPAY | PROVIDERS: PCP Family Medicine; Visit Provider Nurse Practitioner | DX: Z20.822 Contact with and (suspected) exposure to COVID-19 (principal) | CPT/HCPCS: C9803; U0003; U0005 ==

== ENCOUNTER → 2021-02-10 10:52 | Outpatient (CLI) | payer MEDICARE, SELFPAY | PROVIDERS: Visit Provider Nurse Practitioner | DX: Z20.822 Contact with and (suspected) exposure to COVID-19 (principal) | CPT/HCPCS: C9803; U0003; U0005 ==

== ENCOUNTER → 2021-02-24 14:11 | Outpatient (CLI) | payer MEDICARE, SELFPAY | PROVIDERS: PCP Family Medicine; Visit Provider Nurse Practitioner | DX: U07.1 COVID-19 (principal) | CPT/HCPCS: C9803; U0003; U0005 ==

== ENCOUNTER → 2021-03-04 07:45 | Outpatient (CLI) | payer MEDICARE, SELFPAY ==
[2021-03-04 07:56] LABS: Microscopic, Urine URINE MICROSCOPIC (MICROSCOPIC)
[2021-03-04 08:07] LABS: Appearance,Urine CLEAR (Clear); Bilirubin,Urine Negative (Negative); Blood, Urine Negative (Negative); Color,Urine YELLOW (Yellow); Glucose,Urine (UA) Negative (Negative); Ketones,Urine Negative (Negative); Leukocyte Esterase,Urine Negative (Negative); Nitrate,Urine Negative (Negative); Protein,Urine Negative (Negative); Urobilinogen,Urine 0.2 EU/dl (0.2)
[2021-03-04 08:10] LABS: Hematocrit 41.9 % (42.0-52.0); Mean Corpuscular HGB Conc 31.1 g/dL (31.8-35.4); Mean Corpuscular Hemoglobin 31.3 pg (27.0-31.2); Mean Corpuscular Volume 100.8 fl (80-94); Platelet Count 225 K/mm3 (142-424); Red Blood Count 4.16 M/mm3 (4.60-6.20); Red Cell Distribution Width 14.2 % (11.5-17.5); White Blood Count 5.6 K/mm3 (4.8-10.8)
[2021-03-04 10:43] LABS: Alanine Aminotransferase 41 U/L (12-78); Albumin Level 4.2 g/dl (3.5-5.0); Albumin/Globulin Ratio 1.8 (1.1-1.8); Alkaline Phosphatase 75 U/L (38-126); Anion Gap 10.8 mEq/L (5-15); Aspartate Amino Transferase 48 U/L (17-59); Bilirubin,Total 0.6 mg/dl (0.2-1.3); Blood Urea Nitrogen 41 mg/dl (9-20); Calcium 9.1 mg/dl (8.4-10.2); Carbon Dioxide 30 mmol/L (22.0-30.0); Chloride 104 mmol/L (98-107); Estimated Glomerular Filt Rate 32 ml/min (>60); GFR (African American) 38 ML/MIN (>60); Globulin 2.4 g/dL (1.3-3.2); Glucose 82 mg/dl (74-100); Potassium 4.8 mmoL/L (3.5-5.1); Sodium 140 mmol/L (136-145); Total Protein,Serum 6.6 g/dl (6.3-8.2); Uric Acid 8.7 mg/dl (3.5-8.5)
[2021-03-04 10:56] LABS: Intact Parathyroid Hormone 71.1 pg/mL (7.5-53.5)
[2021-03-04 11:00] LABS: 25-OH Vitamin D, Total 34.4 ng/mL (30-100)
== END ==
PROVIDERS: Visit Provider Internal Medicine Nephrology
DX: I12.9 Hypertensive chronic kidney disease with stage 1 through stage 4 chronic kidney disease, or unspecified chronic kidney disease (principal); N18.30 Chronic kidney disease, stage 3 unspecified; E03.9 Hypothyroidism, unspecified; E55.9 Vitamin D deficiency, unspecified
CPT/HCPCS: 36415; 80053; 81001; 82306; 83970; 84550; 85014; 85018; 85048; 85049

== ENCOUNTER → 2021-03-11 13:41 | Outpatient (POV) | payer MEDICARE, SELFPAY | PROVIDERS: Visit Provider Internal Medicine Nephrology | DX: Z00.00 Encounter for general adult medical examination without abnormal findings (principal) ==

== ENCOUNTER → 2021-07-01 07:15 | Outpatient (CLI) | payer MEDICARE, SELFPAY ==
[2021-07-01 07:24] LABS: Microscopic, Urine URINE MICROSCOPIC (MICROSCOPIC)
[2021-07-01 07:41] LABS: Hemoglobin 12.8 g/dL (14.1-18.0); Mean Corpuscular HGB Conc 32.9 g/dL (31.8-35.4); Mean Corpuscular Hemoglobin 32.4 pg (27.0-31.2); Mean Corpuscular Volume 98.4 fl (80-94); Platelet Count 191 K/mm3 (142-424); Red Blood Count 3.96 M/mm3 (4.60-6.20); Red Cell Distribution Width 14.1 % (11.5-17.5); White Blood Count 4.9 K/mm3 (4.8-10.8)
[2021-07-01 08:06] LABS: Alanine Aminotransferase 30 U/L (12-78); Albumin Level 4.1 g/dl (3.5-5.0); Albumin/Globulin Ratio 1.6 (1.1-1.8); Alkaline Phosphatase 89 U/L (38-126); Anion Gap 11.6 mEq/L (5-15); Appearance,Urine CLEAR (Clear); Aspartate Amino Transferase 38 U/L (17-59); Bilirubin,Total 0.3 mg/dl (0.2-1.3); Bilirubin,Urine Negative (Negative); Blood Urea Nitrogen 41 mg/dl (9-20); Blood, Urine Negative (Negative); Calcium 9.1 mg/dl (8.4-10.2); Carbon Dioxide 27 mmol/L (22.0-30.0); Chloride 108 mmol/L (98-107); Color,Urine YELLOW (Yellow); Estimated Glomerular Filt Rate 32 ml/min (>60); GFR (African American) 38 ML/MIN (>60); Globulin 2.5 g/dL (1.3-3.2); Glucose 96 mg/dl (74-100); Glucose,Urine (UA) Negative (Negative); Ketones,Urine Negative (Negative); Leukocyte Esterase,Urine Negative (Negative); Nitrate,Urine Negative (Negative); Potassium 4.6 mmoL/L (3.5-5.1); Protein,Urine Negative (Negative); Sodium 142 mmol/L (136-145); Total Protein,Serum 6.6 g/dl (6.3-8.2); Uric Acid 8.9 mg/dl (3.5-8.5); Urobilinogen,Urine 0.2 EU/dl (0.2)
[2021-07-01 08:17] LABS: Intact Parathyroid Hormone 81.4 pg/mL (7.5-53.5)
[2021-07-01 08:21] LABS: Bacteria,Urine Trace /lpf
[2021-07-01 08:25] LABS: Creatinine,Urine Random 56 mg/dL (Not Estab.)
== END ==
PROVIDERS: Visit Provider Internal Medicine Nephrology
DX: N18.30 Chronic kidney disease, stage 3 unspecified (principal); E03.9 Hypothyroidism, unspecified; I10 Essential (primary) hypertension; E55.9 Vitamin D deficiency, unspecified; N40.0 Benign prostatic hyperplasia without lower urinary tract symptoms
CPT/HCPCS: 36415; 80053; 81001; 82306; 82570; 83970; 84155; 84550; 85014; 85018; 85048; 85049

== ENCOUNTER → 2021-07-08 12:44 | Outpatient (POV) | payer MEDICARE, SELFPAY | PROVIDERS: Visit Provider Internal Medicine Nephrology | DX: Z00.00 Encounter for general adult medical examination without abnormal findings (principal) ==

== ENCOUNTER 2021-09-10 14:47 | Emergency (ER) | payer MEDICARE, SELFPAY ==
[2021-09-10 14:47] VITALS: BP 129/68; PULSE 67; RESP 14; TEMP 36.8; O2SAT 99; BMI 19.3
--- NOTE | 2021-09-10 15:06 | XR_ITS ---
PROCEDURE INFORMATION: Exam: XR Right Hand Exam date and time: 09/10/2021 3:04 PM Age: 70 years old Clinical indication: Injury or trauma; Other: Fall; Laceration; Hand and finger; Right; Index finger and middle finger and ring finger TECHNIQUE: Imaging protocol: Radiologic exam of the Right hand. Views: 3 or more views. COMPARISON: No relevant prior studies available. FINDINGS: Bones/joints: Normal. Soft tissues: Normal. IMPRESSION: No acute findings.
--- NOTE | 2021-09-10 15:24 | HMH.EDUTC ---
[facility] [place] Disposition Clinical Impression: Laceration of right hand Qualifiers: Encounter type: initial encounter Foreign body presence: without foreign body Qualified Code(s): S61.411A - Laceration without foreign body of right hand, initial encounter Crushing injury of right hand Qualifiers: Encounter type: initial encounter Qualified Code(s): S67.21XA - Crushing injury of right hand, initial encounter Disposition: Home, Self-Care Condition on Discharge: Good Instructions: How to Care for a Laceration After Repair, DI for Laceration Repair, Tetanus, Diphtheria, Pertussis (Tdap) Vaccine Additional Instructions: Keep the wounds clean and dry. Keep a dressing on it if you are going to be getting it dirty. Watch the for signs of infection, such as redness, swelling, drainage, fever. etc. take tylenol or ibuprofen for pain. Follow up with your regular doctor. Rest the extremity, Elevate the extremity as tolerated while you are resting. Follow up with Dr. Rojas (orthopedics). I put in a referral but you need to call his office and schedule an appointment. Return in 10 days to have the sutures removed. GO TO THE ER FOR ANY WORSENING SYMPTOMS OR CONCERNS. Prescriptions: cephALEXin [cephALEXin 500mg capsule] 500 mg PO Q6H 10 Days #40 cap Transmission Status: Received by [id number] Referrals: Nura Teran MD [Primary Care Provider] - Curtis Rojas MD [Staff Physician] - Time of Disposition: 16:50 Medical Decision Making - Medical Records Medical records reviewed: No: I reviewed the patient's medical records. - Alonzo Inquiry Pt receiving controlled substance: No Vital Signs: 09/10/21 14:47 09/10/21 15:27 09/10/21 16:54 Temperature 98.3 F 98.3 F 98.6 F Temperature Source Oral Oral Pulse Rate 66 Pulse Rate [Left Radial] 67 66 Respiratory Rate 14 14 14 Blood Pressure 129/68 Blood Pressure [Left Arm] 129/68 129/68 Blood Pressure Mean [Left Arm] 88 88 Blood Pressure Source [Left Arm] Automatic Cuff Blood Pressure Position [Left Arm] Sitting 02 Sat by Pulse Oximetry 99 99 Oxygen Delivery Method Room Air Orders (Tests/Meds): ED MEDICATIONS Discontinued Medications Generic Name Dose Route Start Last Admin Trade Name Freq PRN Reason Stop Dose Admin Tetanus/Diphtheria Toxoids 0.5 ml 09/10/21 17:12 09/10/21 16:15 Tetanus-Diphth Toxoid, Adult 0.5ml Syr IM 09/10/21 17:13 0.5 ml .ONCE ONE Administration - Radiology Data #1 Image(s): Hand Image Reviewed: Yes I reviewed the patient's radiology image, Yes I have reviewed radiologist's interpretation Preliminary Findings: Normal/NAD, No Fracture Seen PROCEDURE INFORMATION: Exam: XR Right Hand Exam date and time: 09/10/2021 3:04 PM Age: 70 years old Clinical indication: Injury or trauma; Other: Fall; Laceration; Hand and finger; Right; Index finger and middle finger and ring finger TECHNIQUE: Imaging protocol: Radiologic exam of the Right hand. Views: 3 or more views. COMPARISON: No relevant prior studies available. FINDINGS: Bones/joints: Normal. Soft tissues: Normal. IMPRESSION: No acute findings. [facility] [place] HPI - General Stated complaint: ao 09/10 fall, right hand laceration Time Seen by Provider: 09/10/21 15:24 Mode of Arrival: Ambulatory Source of Information: Patient Limitations: No Limitations Description of Symptoms (Recalled from Triage Doc. by RN): Pt presents with lac/abrasions to 1st, 2nd, 3rd and 4th digit knuckles after tripping while taking his trash out and getting his fingers stuck under the trash can lid. 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 He has lacerations on his index, middle and ring finger. His teta
[2021-09-10 15:27] VITALS: BP 129/68; PULSE 66; RESP 14; TEMP 36.8; O2SAT 99; BMI 19.3
[2021-09-10 16:54] VITALS: BP 129/68; PULSE 66; RESP 14; TEMP 37
== END 2021-09-10 16:58 | disposition home or self-care (01) ==
PROVIDERS: Emergency Provider Nurse Practitioner Family; PCP Family Medicine
DX: W18.49XA Other slipping, tripping and stumbling without falling, initial encounter (principal); Y93.89 Activity, other specified; Y92.008 Other place in unspecified non-institutional (private) residence as the place of occurrence of the external cause; Y99.8 Other external cause status; S67.21XA Crushing injury of right hand, initial encounter
CPT/HCPCS: 12002; 73130; 90471; 90714; 99213; G0463

== ENCOUNTER → 2021-09-16 11:06 | Outpatient (CLI) | payer MEDICARE, SELFPAY ==
--- NOTE | 2021-09-16 11:17 | XR_ITS ---
FINAL REPORT CLINICAL HISTORY: CELLULITIS COMPARISON: September 10, 2021 FINDINGS: 3 views of the right hand were obtained. There is no acute fracture or dislocation. The joint spaces are intact. There is soft tissue swelling of the 2nd and 3rd digits. IMPRESSION: Swelling with no acute bony abnormality. Reviewed, Interpreted and Dictated by Louie Hernandez III, MD Transcribed by Alvaro Sepulveda Authenticated and [facility]
== END ==
PROVIDERS: PCP Family Medicine; Visit Provider Physician Assistant
DX: L03.113 Cellulitis of right upper limb (principal)
CPT/HCPCS: 73130

== ENCOUNTER → 2021-10-28 08:14 | Outpatient (CLI) | payer MEDICARE, SELFPAY ==
[2021-10-28 08:22] LABS: Microscopic, Urine URINE MICROSCOPIC (MICROSCOPIC)
[2021-10-28 09:08] LABS: Hemoglobin 12.6 g/dL (14.1-18.0); Mean Corpuscular HGB Conc 31.5 g/dL (31.8-35.4); Mean Corpuscular Volume 101.4 fl (80-94); Platelet Count 222 K/mm3 (142-424); Red Blood Count 3.95 M/mm3 (4.60-6.20); Red Cell Distribution Width 14.6 % (11.5-17.5); White Blood Count 6.1 K/mm3 (4.8-10.8)
[2021-10-28 09:24] LABS: Alanine Aminotransferase 30 U/L (12-78); Albumin Level 4.1 g/dl (3.5-5.0); Albumin/Globulin Ratio 1.6 (1.1-1.8); Alkaline Phosphatase 103 U/L (38-126); Anion Gap 13.3 mEq/L (5-15); Aspartate Amino Transferase 40 U/L (17-59); Bilirubin,Total 0.4 mg/dl (0.2-1.3); Blood Urea Nitrogen 37 mg/dl (9-20); Calcium 9.1 mg/dl (8.4-10.2); Carbon Dioxide 29 mmol/L (22.0-30.0); Chloride 104 mmol/L (98-107); Estimated Glomerular Filt Rate 33 ml/min (>60); GFR (African American) 40 ML/MIN (>60); Globulin 2.6 g/dL (1.3-3.2); Glucose 89 mg/dl (74-100); Potassium 4.3 mmoL/L (3.5-5.1); Sodium 142 mmol/L (136-145); Total Protein,Serum 6.7 g/dl (6.3-8.2); Uric Acid 6.1 mg/dl (3.5-8.5)
[2021-10-28 09:28] LABS: Hemoglobin A1C 5.4 % (4.0-6.0)
[2021-10-28 09:35] LABS: Intact Parathyroid Hormone 60.4 pg/mL (7.5-53.5)
[2021-10-28 09:40] LABS: 25-OH Vitamin D, Total 36.3 ng/mL (30-100)
[2021-10-28 09:57] LABS: Appearance,Urine CLEAR (Clear); Bilirubin,Urine Negative (Negative); Blood, Urine Negative (Negative); Color,Urine YELLOW (Yellow); Glucose,Urine (UA) Negative (Negative); Ketones,Urine Negative (Negative); Leukocyte Esterase,Urine Negative (Negative); Nitrate,Urine Negative (Negative); Protein,Urine Negative (Negative); Urobilinogen,Urine 0.2 EU/dl (0.2)
[2021-10-28 10:07] LABS: Creatinine,Urine Random 52 mg/dL (Not Estab.)
[2021-10-28 10:08] LABS: Squamous Epithelial Cell,Urine Occasional #/hpf (0-5); WBC,Urine Occasional #/hpf (0-3)
== END ==
PROVIDERS: PCP Family Medicine; Visit Provider Internal Medicine Nephrology
DX: I12.9 Hypertensive chronic kidney disease with stage 1 through stage 4 chronic kidney disease, or unspecified chronic kidney disease (principal); N18.30 Chronic kidney disease, stage 3 unspecified; E03.9 Hypothyroidism, unspecified; E79.0 Hyperuricemia without signs of inflammatory arthritis and tophaceous disease; E55.9 Vitamin D deficiency, unspecified; N40.0 Benign prostatic hyperplasia without lower urinary tract symptoms
CPT/HCPCS: 36415; 80053; 81001; 82306; 82570; 83036; 83970; 84155; 84550; 85014; 85018; 85048; 85049

== ENCOUNTER → 2021-11-04 13:31 | Outpatient (POV) | payer MEDICARE, SELFPAY | PROVIDERS: Visit Provider Internal Medicine Nephrology | DX: Z00.00 Encounter for general adult medical examination without abnormal findings (principal) ==

== ENCOUNTER → 2022-04-28 07:06 | Outpatient (CLI) | payer MEDICARE, SELFPAY ==
[2022-04-28 07:23] LABS: Microscopic, Urine URINE MICROSCOPIC (MICROSCOPIC)
[2022-04-28 07:40] LABS: Appearance,Urine CLEAR (Clear); Bilirubin,Urine Negative (Negative); Blood, Urine Negative (Negative); Color,Urine YELLOW (Yellow); Glucose,Urine (UA) Negative (Negative); Ketones,Urine Negative (Negative); Leukocyte Esterase,Urine Negative (Negative); Nitrate,Urine Negative (Negative); Protein,Urine Negative (Negative); Specific Gravity, Urine <= 1.005 (1.005-1.030); Urobilinogen,Urine 0.2 EU/dl (0.2)
[2022-04-28 07:45] LABS: Hematocrit 37.8 % (42.0-52.0); Mean Corpuscular HGB Conc 31.8 g/dL (31.8-35.4); Mean Corpuscular Hemoglobin 31.1 pg (27.0-31.2); Mean Corpuscular Volume 97.8 fl (80-94); Platelet Count 197 K/mm3 (142-424); Red Blood Count 3.86 M/mm3 (4.60-6.20); Red Cell Distribution Width 14.4 % (11.5-17.5); White Blood Count 5.7 K/mm3 (4.8-10.8)
[2022-04-28 07:53] LABS: Bacteria,Urine Trace /lpf; Sperm,Urine OCC /lpf; WBC,Urine Occasional #/hpf (0-3)
[2022-04-28 07:54] LABS: Creatinine,Urine Random 51 mg/dL (Not Estab.)
[2022-04-28 08:04] LABS: Hemoglobin A1C 5.5 % (4.0-6.0)
[2022-04-28 08:07] LABS: Alanine Aminotransferase 36 U/L (12-78); Albumin Level 4.1 g/dl (3.5-5.0); Albumin/Globulin Ratio 1.6 (1.1-1.8); Alkaline Phosphatase 94 U/L (38-126); Anion Gap 11.3 mEq/L (5-15); Aspartate Amino Transferase 53 U/L (17-59); Bilirubin,Total 0.6 mg/dl (0.2-1.3); Blood Urea Nitrogen 44 mg/dl (9-20); Calcium 8.6 mg/dl (8.4-10.2); Carbon Dioxide 28 mmol/L (22.0-30.0); Chloride 104 mmol/L (98-107); Estimated Glomerular Filt Rate 30 ml/min (>60); GFR (African American) 36 ML/MIN (>60); Globulin 2.5 g/dL (1.3-3.2); Glucose 82 mg/dl (74-100); Potassium 4.3 mmoL/L (3.5-5.1); Sodium 139 mmol/L (136-145); Total Protein,Serum 6.6 g/dl (6.3-8.2); Uric Acid 6.3 mg/dl (3.5-8.5)
[2022-04-28 08:18] LABS: Intact Parathyroid Hormone 67.5 pg/mL (7.5-53.5)
[2022-04-28 08:24] LABS: 25-OH Vitamin D, Total 37.5 ng/mL (30-100)
== END ==
PROVIDERS: PCP Family Medicine; Visit Provider Internal Medicine Nephrology
DX: N18.30 Chronic kidney disease, stage 3 unspecified (principal); E03.9 Hypothyroidism, unspecified; E55.9 Vitamin D deficiency, unspecified; E79.0 Hyperuricemia without signs of inflammatory arthritis and tophaceous disease; I10 Essential (primary) hypertension; N40.0 Benign prostatic hyperplasia without lower urinary tract symptoms
CPT/HCPCS: 36415; 80053; 81001; 82043; 82306; 82570; 83036; 83970; 84155; 84550; 85014; 85018; 85048; 85049

== ENCOUNTER → 2022-05-31 14:49 | Outpatient (CLI) | payer MEDICARE, SELFPAY ==
[2022-05-31 15:21] LABS: Adenovirus,PCR Not Detected (NotDetected); Bordetella Pertussis Not Detected (NotDetected); Chlamydophila Pneumoniae, PCR Not Detected (NotDetected); Coronavirus 19, PCR Not Detected (NotDetected); Coronavirus 229E Not Detected (NotDetected); Coronavirus NL63 Not Detected (NotDetected); Coronavirus OC43 Not Detected (NotDetected); Coronovirus HKU1,PCR Not Detected (NotDetected); Human Metapneumovirus Not Detected (NotDetected); Influenza A, PCR Not Detected (NotDetected); Influenza AH1, 2009 Not Detected (NotDetected); Influenza AH1, PCR Not Detected (NotDetected); Influenza AH3,PCR Not Detected (NotDetected); Influenza B, PCR Not Detected (NotDetected); Mycoplasma Pneumoniae, PCR Not Detected (NotDetected); Parainfluenza 1, PCR Not Detected (NotDetected); Parainfluenza 2, PCR Not Detected (NotDetected); Parainfluenza 3, PCR Not Detected (NotDetected); Parainfluenza 4, PCR Not Detected (NotDetected); Respiratory Syncytial Virus Not Detected (NotDetected)
[2022-05-31 17:43] LABS: Rhinovirus/Enterovirus Detected (NotDetected)
== END ==
PROVIDERS: PCP Family Medicine; Visit Provider Family Medicine
DX: Z20.822 Contact with and (suspected) exposure to COVID-19 (principal); B34.1 Enterovirus infection, unspecified
CPT/HCPCS: 87581; 87632; 87798; C9803; U0003; U0005

== ENCOUNTER → 2022-10-10 07:23 | Outpatient (CLI) | payer MEDICARE, SELFPAY ==
[2022-10-10 07:40] LABS: Microscopic, Urine URINE MICROSCOPIC (MICROSCOPIC)
[2022-10-10 08:12] LABS: Appearance,Urine CLEAR (Clear); Bilirubin,Urine Negative (Negative); Blood, Urine Negative (Negative); Color,Urine YELLOW (Yellow); Glucose,Urine (UA) Negative (Negative); Ketones,Urine Negative (Negative); Leukocyte Esterase,Urine Negative (Negative); Nitrate,Urine Negative (Negative); Protein,Urine Negative (Negative); Urobilinogen,Urine 0.2 EU/dl (0.2)
[2022-10-10 08:13] LABS: Hematocrit 40.2 % (42.0-52.0); Hemoglobin 12.4 g/dL (14.1-18.0); Mean Corpuscular HGB Conc 30.8 g/dL (31.8-35.4); Mean Corpuscular Hemoglobin 30.9 pg (27.0-31.2); Mean Corpuscular Volume 100.5 fl (80-94); Platelet Count 183 K/mm3 (142-424); Red Cell Distribution Width 14.1 % (11.5-17.5); White Blood Count 5.4 K/mm3 (4.8-10.8)
[2022-10-10 08:27] LABS: Creatinine,Urine Random 68 mg/dL (Not Estab.); Hemoglobin A1C 5.6 % (4.0-6.0)
[2022-10-10 08:30] LABS: Bacteria,Urine Trace /lpf; Squamous Epithelial Cell,Urine Occasional #/hpf (0-5)
[2022-10-10 09:58] LABS: Alanine Aminotransferase 27 U/L (12-78); Albumin Level 3.8 g/dl (3.5-5.0); Albumin/Globulin Ratio 1.5 (1.1-1.8); Alkaline Phosphatase 84 U/L (38-126); Anion Gap 13.7 mEq/L (5-15); Aspartate Amino Transferase 38 U/L (17-59); Bilirubin,Total 0.4 mg/dl (0.2-1.3); Blood Urea Nitrogen 44 mg/dl (9-20); Calcium 9.1 mg/dl (8.4-10.2); Carbon Dioxide 27 mmol/L (22.0-30.0); Chloride 106 mmol/L (98-107); Estimated Glomerular Filt Rate 30 ml/min (>60); GFR (African American) 36 ML/MIN (>60); Globulin 2.6 g/dL (1.3-3.2); Glucose 87 mg/dl (74-100); Potassium 4.7 mmoL/L (3.5-5.1); Sodium 142 mmol/L (136-145); Total Protein,Serum 6.4 g/dl (6.3-8.2); Uric Acid 6.5 mg/dl (3.5-8.5)
[2022-10-10 10:07] LABS: Intact Parathyroid Hormone 59.7 pg/mL (7.5-53.5)
== END ==
PROVIDERS: PCP Family Medicine; Visit Provider Internal Medicine Nephrology
DX: E55.9 Vitamin D deficiency, unspecified (principal); E79.0 Hyperuricemia without signs of inflammatory arthritis and tophaceous disease; I10 Essential (primary) hypertension; N18.30 Chronic kidney disease, stage 3 unspecified; E03.9 Hypothyroidism, unspecified
CPT/HCPCS: 36415; 80053; 81001; 82570; 83036; 83970; 84155; 84550; 85014; 85018; 85048; 85049

== ENCOUNTER → 2023-01-08 16:27 | Outpatient (CLI) | payer MEDICARE, SELFPAY | LOC: RT 16:29 | PROVIDERS: PCP Family Medicine; Visit Provider Family Medicine | DX: I49.9 Cardiac arrhythmia, unspecified (principal) | CPT/HCPCS: 93225 ==

== ENCOUNTER 2023-02-13 12:00 | Outpatient (CLI) | payer MEDICARE, SELFPAY ==
[2023-02-13 12:20] LABS: Basophils % 0.5 % (0.1-2.0); Eosinophils # 0.1 K/mm3 (0.0-0.4); Eosinophils % 1.3 % (0.1-12.0); Hematocrit 39.4 % (42.0-52.0); Hemoglobin 12.4 g/dL (14.1-18.0); Lymphocytes # 0.6 K/mm3 (0.7-4.5); Lymphocytes % 10.7 % (10-50); Mean Corpuscular HGB Conc 31.4 g/dL (31.8-35.4); Mean Corpuscular Hemoglobin 31.8 pg (27.0-31.2); Mean Corpuscular Volume 101.2 fl (80-94); Mean Platelet Volume 8.4 fl (7.4-10.4); Monocytes # 0.3 K/mm3 (0.1-1.0); Neutrophils # 4.7 K/mm3 (1.8-7.8); Neutrophils % 82.5 % (37.0-80.0); Platelet Count 183 K/mm3 (142-424); Red Blood Count 3.89 M/mm3 (4.60-6.20); Red Cell Distribution Width 14.6 % (11.5-17.5); White Blood Count 5.7 K/mm3 (4.8-10.8)
[2023-02-13 13:40] LABS: Blood Urea Nitrogen 47 mg/dl (9-20); Estimated Glomerular Filt Rate 30 ml/min (>60); GFR (African American) 36 ML/MIN (>60)
[2023-02-13 13:41] LABS: Alanine Aminotransferase 31 U/L (12-78); Albumin Level 3.9 g/dl (3.5-5.0); Alkaline Phosphatase 89 U/L (38-126); Aspartate Amino Transferase 43 U/L (17-59); Bilirubin,Direct 0.1 mg/dl (0.0-0.4); Bilirubin,Indirect 0.3 mg/dL (0.0-0.9); Bilirubin,Total 0.4 mg/dl (0.2-1.3); Bilirubin,Unconjugated 0.4 mg/dL (0.0-1.1); Calcium 8.3 mg/dl (8.4-10.2); Carbon Dioxide 27 mmol/L (22.0-30.0); Cholesterol 184 mg/dl (140-200); Glucose 93 mg/dl (74-100); Magnesium 1.7 mg/dl (1.6-2.3); Total Protein,Serum 6.4 g/dl (6.3-8.2); Triglycerides 47 mg/dl (30-150); VLDL Cholesterol 9 mg/dL (0-40)
[2023-02-13 13:42] LABS: Chol/HDL Ratio 2.1 (1-3.5); HDL Cholesterol 88 mg/dl (40-60)
[2023-02-13 13:48] LABS: Anion Gap 12.1 mEq/L (5-15); Chloride 104 mmol/L (98-107); Potassium 5.1 mmoL/L (3.5-5.1); Sodium 138 mmol/L (136-145)
[2023-02-13 13:52] LABS: Direct LDL Cholesterol 68.19 mg/dL (100-129)
[2023-02-13 14:12] LABS: Thyroid Stimulating Hormone 6.24 uIU/mL (0.465-4.68)
[2023-02-13 14:31] LABS: Free T4 (Free Thyroxine) 1.06 ng/dl (0.78-2.19)
== END 2023-02-13 23:59 ==
LOC: LAB 12:02
PROVIDERS: PCP Family Medicine; Visit Provider Internal Medicine
DX: E03.9 Hypothyroidism, unspecified (principal); I47.29 Other ventricular tachycardia; N18.9 Chronic kidney disease, unspecified; R94.31 Abnormal electrocardiogram [ECG] [EKG]; R07.9 Chest pain, unspecified
CPT/HCPCS: 36415; 80048; 80061; 80076; 83735; 84439; 84443; 85025

== ENCOUNTER 2023-02-14 07:43 | Outpatient (CLI) | payer MEDICARE, SELFPAY ==
--- NOTE | 2023-02-14 07:44 | NM_ITS ---
APPROVED REPORT Exam: Nuclear Stress Test Indication: abn jessica Patient Location: Outpatient Stress Tech: Elvia Manuel [place] Tech:BRUCE Torrez RT(R)(N) Ht: 5 ft 9 in Wt: 155 lbs HR: 60 bpm BP: 151/59 mmHg BSA: 1.85 m2 TID: 1.04 BMI: 22.8 History: abn halter Procedure: Patient exercised on Ren protocol 11:45 minutes and sec, resting heart rate 60 bpm, resting blood pressure 151/59 mmHg, with exercise maximum heart rate achived was 174 bpm which is 116 % of the maximum predicted heart rate and blood pressure was 176/58 mmHg. Patient denied any complaint of chest pain. Patient has exercise capacity, achieved 12.8 METs of workload on treadmill, the blood pressure response to exercise was . Cardiac Stress and Resting SPECT Images: Cardiac Stress and Resting SPECT images were obtained using technetium 99m Myoview 32.9 mCi stress and 10.50 mCi at rest. Resting and stress imaging in supine and prone positions demonstrate a large sized, moderate, predominantly fixed perfusion defect in the inferior and inferior septal LV bergeron. There is a region of reversibility towards the septal wall. Gated imaging demonstrates moderate reduction in global LV systolic function. There is severe hypokinesis of the basal inferior LV wall. LVEF is calculated at 38%. Conclusion: Large sized, moderate, predominantly fixed perfusion defect in the inferior and inferior septal LV bergeron. There is a region of reversibility towards the septal wall. Findings are suggestive of partial reversible ischemia. Gated imaging demonstrates moderate reduction in global LV systolic function. There is severe hypokinesis of the basal inferior LV wall. LVEF is calculated at 38%. Electronically signed by : Zeynep Gates MD 02/17/2023 22:50:47
--- NOTE | 2023-02-14 08:22 | CA_ITS ---
APPROVED REPORT EXAM: Comprehensive 2D, Doppler, and color-flow Echocardiogram Professor Of Geography: Micaela Block CRT Ht: 5 ft 10 in Wt: 138lbs BSA: 1.78 BP: 145/51 mmHg Indications: Abnormal ECG, abn holter, NSVT 2D Dimensions Left Atrium 2.49 cm LVEF (Ernst's) 56.50 % LVOT 2.01 cm (M/F) 1.5-2.5 LV Volume 133.20 mL LA Volume 51.00 mL LA Volume Index 28.70 mL/m2 (M/F) 16-34 EF AP4 54.10 % EF AP2 55.4 % EF BP 56.5 % GL Strain -18.9 % M-Mode Dimensions RVDd 3.87 cm (0.9-2.6) LVDd 5.80 cm (3.5-5.7) Ao Diam 4.70 cm (2.0-3.7) LVDs 3.83 cm (3.5-5.7) IVSd 0.68 cm (0.6-1.1) PWd 0.82 cm (0.6-1.1) EF (Teich) 62.10% FS 34.00% EDV (Teich) 166.60 mL TAPSE 3.15 (<1.7) ESV (Teich) 63.10 mL LV Diastology E Decel Time 269 (160-240 msec) E/A Ratio 0.97 MED E' 6.8 (>= 7 cm/sec) MED A' 13.90 cm/s E'/MED E' Ratio 12.88 (<= 14) LAT E' 7.3 (>= 10 cm/sec) LAT A' 11.00 cm/s E/LAT E' Ratio 12.00 (<= 14) Aortic Valve AoV Peak Satish. 128.0 (50-130 cm/s) AO Peak GR. 6.60 mmHg Mitral Valve MV E Max Satish. 88.0 (40-130 cm/s) MV A Velocity 91.0 (40-130 cm/s) E/A Ratio 0.97 MV Decel. Time 269 (160-240 ms) Tricuspid Valve TR P. Velocity 379.00 cm/s RAP Estimate 10.00 mmHg RVSP 67.60 mmHg Left Ventricle Left ventricle is mildly dilated (LVEDVi 85 ml/m2). The left ventricular systolic function is normal. The left ventricular ejection fraction is within the normal range. There is normal left ventricular wall thickness. There is mild basal inferior, septal, and inferoseptal LV wall hypokinesis. Grade 1 diastolic dysfunction is present. LVEF is 45% Right Ventricle Right ventricle is mildly dilated. The right ventricular systolic function is normal. Atria Left atrium is mildly dilated. Right atrium is mildly dilated. There is no Doppler evidence of interatrial shunt. Aortic Valve The aortic valve opens well. There is no aortic valvular stenosis. Trace aortic regurgitation. Mitral Valve There is mild posterior mitral valve leaflet prolapse. No evidence of mitral valve stenosis. Mild mitral regurgitation. Tricuspid Valve The tricuspid valve leaflets are thin and pliable. Mild tricuspid regurgitation. RVSP is 30-35 mmHg. Pulmonic Valve The pulmonary valve is normal in structure. Trace pulmonic regurgitation. Great Vessels The aortic root is normal in size. The ascending aorta is not well visualized. IVC is normal in size and collapses >50% with inspiration. Pericardium There is no pericardial effusion. Other Information Study Quality: Fair Conclusion Mildly dilated LV with mild reduction in LV systolic function (LVEF 45%). Basal inferior, septal, and inferoseptal LV wall hypokinesis. Mild RV dilation. Mild biatrial dilation. Mild prolapse of the posterior MV leaflet. Mild MR. Mild TR. RVSP 35-40 mmHg. Electronically signed by : Zeynep Gates MD 02/17/2023 16:02:46
--- NOTE | 2023-02-14 09:36 | CA_ITS ---
APPROVED REPORT Exam: Exercise Treadmill Technologist: Elvia Okeefe, Ht: 5 ft 0 in Wt: 138 lbs BSA: 1.59 m2 HR: 57 bpm BP: 152/49 mmHg Rhythm: NSR Medical History Medications: Amlodipine,,,,, Levothyroxine,,,,, Aspirin,,,,, Trazadone,,,,, Atorvastatin,,,,, FOLIC ACID,,,,, DOxazosin,,,,, CalciTRiol,,,,, Metoprolol Succinate ER,,,,, Vitamin B, C,,,,, Stress Test Details Test: Ren HR Resting HR: 60 bpm Max Heart Rate (APMHR): 150 bpm Max HR Achieved: 174 bpm Target HR (85% APMHR): 128 bpm % of APMHR: 116 Recovery HR: 76 bpm HR response to stress: Normal HR response to stress BP Resting BP: 151.0/59.0 mmHg Max BP: 176.0/58.0 mmHg Recovery BP: 150.0/52.0 mmHg BP response to stress: Normal blood pressure response to stress. ECG Resting ECG: sinus bradycardia, PVCs, rightward axis, NS ST abns inferiorly Stress EC.[address] depression Arrhythmia: PVCs Recovery ECG: Return to baseline within 3 minutes of recovery Recovery Arrhythmia: PVCs Clinical Exercise duration: 11:45 min Highest Stage Achieved: IV Exercise capacity: 12.8 METs Overall Exercise Capacity for Age: Good Stress ECG Conclusion The patient was able to exercise for a total of 11 minutes, 45 seconds. He achieved a total of 12.8 METS. He has good exercise capacity compared to age and sex matched peers. He has normal HR and BP response to exercise. Max HR: 160 % of PM: 107% Max BP: 176/60 Test stopped due to: SOA Symptoms: No CP. Arrhythmias/Ectopy: Occasional PVC. ST-T Changes: 0.[address] depression, which quickly returned to baseline within 3 minutes of recovery Conclusion: Good exercise capacity. Unremarkable ECG portion of stress test. Myoview images are reported separately. Test Summary REST . . . . . . . Sitting REST . . . . . . . Standing REST 08:14 0.0 0.0 60 . 151/ 59 . . Stage 1 01:00 10.0 1.7 67 . . . . Stage 1 02:00 10.0 1.7 71 . . . . Stage 1 03:00 10.0 1.7 74 . . . . Stage 2 01:00 12.0 2.5 76 . 164/ 60 . . Stage 2 02:00 12.0 2.5 88 . 164/ 60 . . Stage 2 03:00 12.0 2.5 81 . 176/ 58 . . Stage 3 01:00 14.0 3.4 109 . . . . Stage 3 02:00 14.0 3.4 120 . . . . Stage 3 03:00 14.0 3.4 112 . 176/ 60 . . Stage 4 01:00 16.0 4.2 . . . . . Stage 4 02:00 16.0 4.2 140 . . . . Stage 4 02:45 16.0 4.2 91 . . . Stop exercise at 11:45 RECOVERY 01:00 0.0 0.0 99 . . . . RECOVERY 02:00 0.0 0.0 80 . . . . RECOVERY 03:00 0.0 0.0 85 . 172/ 48 . . RECOVERY 04:00 0.0 0.0 76 . 172/ 48 . . RECOVERY 05:00 0.0 0.0 76 . 166/ 50 . . RECOVERY 05:52 0.0 0.0 72 . 150/ 52 . . Electronically signed by : Zeynep Gates MD 02/28/2023 04:27:10
[2023-02-14] MEDS: ISOTOPE MYOVIEW (PER STUDY) 1 DOSE IV (13:27)
[2023-02-14] MEDS: SODIUM CHLORIDE 0.9% 10ML SYR (RAD ONLY) 10 ML IV ×2 (13:27)
== END 2023-02-14 23:59 ==
LOC: RAD 07:44
PROVIDERS: PCP Family Medicine; Visit Provider Internal Medicine
DX: I47.29 Other ventricular tachycardia (principal); R07.9 Chest pain, unspecified; R94.31 Abnormal electrocardiogram [ECG] [EKG]
CPT/HCPCS: 78452; 93017; 93018; 93306; A9502

== ENCOUNTER 2023-02-21 07:32 | Outpatient (CLI) | payer MEDICARE, SELFPAY ==
[2023-02-21 07:38] LABS: Microscopic, Urine URINE MICROSCOPIC (MICROSCOPIC)
[2023-02-21 08:21] LABS: Hematocrit 38.5 % (42.0-52.0); Hemoglobin 12.4 g/dL (14.1-18.0); Mean Corpuscular HGB Conc 32.3 g/dL (31.8-35.4); Mean Corpuscular Volume 99.2 fl (80-94); Platelet Count 165 K/mm3 (142-424); Red Blood Count 3.88 M/mm3 (4.60-6.20); Red Cell Distribution Width 14.6 % (11.5-17.5); White Blood Count 4.9 K/mm3 (4.8-10.8)
[2023-02-21 08:30] LABS: Appearance,Urine CLEAR (Clear); Bilirubin,Urine Negative (Negative); Blood, Urine Negative (Negative); Color,Urine YELLOW (Yellow); Glucose,Urine (UA) Negative (Negative); Ketones,Urine Negative (Negative); Leukocyte Esterase,Urine Negative (Negative); Nitrate,Urine Negative (Negative); Protein,Urine Negative (Negative); Urobilinogen,Urine 0.2 EU/dl (0.2)
[2023-02-21 08:58] LABS: Alanine Aminotransferase 32 U/L (12-78); Albumin Level 3.9 g/dl (3.5-5.0); Albumin/Globulin Ratio 1.7 (1.1-1.8); Alkaline Phosphatase 84 U/L (38-126); Anion Gap 5.6 mEq/L (5-15); Aspartate Amino Transferase 39 U/L (17-59); Bilirubin,Total 0.4 mg/dl (0.2-1.3); Blood Urea Nitrogen 45 mg/dl (9-20); Calcium 8.7 mg/dl (8.4-10.2); Carbon Dioxide 29 mmol/L (22.0-30.0); Chloride 105 mmol/L (98-107); Estimated Glomerular Filt Rate 30 ml/min (>60); GFR (African American) 36 ML/MIN (>60); Globulin 2.3 g/dL (1.3-3.2); Glucose 92 mg/dl (74-100); Potassium 4.6 mmoL/L (3.5-5.1); Sodium 135 mmol/L (136-145); Total Protein,Serum 6.2 g/dl (6.3-8.2); Uric Acid 6.4 mg/dl (3.5-8.5)
[2023-02-21 09:11] LABS: Intact Parathyroid Hormone 66.7 pg/mL (7.5-53.5)
[2023-02-21 09:13] LABS: Amorphous Sediment,Urine Trace /lpf; Sperm,Urine OCC /lpf; Squamous Epithelial Cell,Urine Occasional #/hpf (0-5)
[2023-02-21 09:14] LABS: 25-OH Vitamin D, Total 42.5 ng/mL (30-100)
[2023-02-21 09:29] LABS: Thyroid Stimulating Hormone 8.95 uIU/mL (0.465-4.68)
[2023-02-21 09:57] LABS: Creatinine,Urine Random 58 mg/dL (Not Estab.)
== END 2023-02-21 23:59 ==
LOC: LAB 07:33
PROVIDERS: PCP Family Medicine; Visit Provider Internal Medicine Nephrology
DX: N18.30 Chronic kidney disease, stage 3 unspecified (principal); I10 Essential (primary) hypertension; E03.9 Hypothyroidism, unspecified; E55.9 Vitamin D deficiency, unspecified; E79.0 Hyperuricemia without signs of inflammatory arthritis and tophaceous disease; N40.0 Benign prostatic hyperplasia without lower urinary tract symptoms
CPT/HCPCS: 36415; 80053; 81001; 82306; 82570; 83970; 84155; 84443; 84550; 85014; 85018; 85048; 85049

== ENCOUNTER 2023-03-22 10:31 | Day surgery (SDC) | payer MEDICARE, SELFPAY ==
[2023-03-22] VITALS (11 sets, daily range): BP systolic 116–149; BP diastolic 46–87; PULSE 48–65; RESP 16–18; TEMP 37; O2SAT 98–100; BMI 19.6
--- NOTE | 2023-03-22 07:04 | IR_ITS ---
APPROVED REPORT Patient Location: Outpatient PROCEDURES Left heart catheterization Left ventriculogram Selective coronary angiogram INDICATION Abnormal Myoview, Regional wall motion abnormality, Angina pectoris, Informed consent was obtained prior to the procedure. COMPLICATIONS NONE Estimated Blood Loss: LESS THAN 10 ML TECHNIQUE One percent lidocaine used to anesthetize the right anterior aspect of the wrist. The right radial artery was accessed via the Seldinger technique. A 6 Syriac sheath was placed in the right radial artery. 2.5 mg of Verapamil, 800 mcg of nitroglycerin, 1mg Lidocaine and 5000 U Heparin were given through the arterial sheath. The papa catheter was also used to perform left heart catheterization, left ventriculogram and selective coronary angiogram. At the end of the procedure the sheath was removed good hemostasis was achieved using Traclet band, patient was transferred to the postop holding area in stable condition. ANGIOGRAPHIC RESULTS The left main artery Normal The left anterior descending artery Normal The circumflex artery Codominant normal The right coronary artery Codominant normal The IRWIN ventriculogram reveals Reduced ejection fraction 40 to 45% The left ventricular end-diastolic pressure 10 to 15 mmHg IMPRESSION Normal coronary arteries Nonischemic cardiomyopathy Normal LVEDP PLAN 1. Recommend cardiac MRI Electronically signed by : Ralph Jama MD 03/22/2023 13:24:32
[2023-03-22 11:18] LABS: Chloride 104 mmol/L (98-107)
[2023-03-22 11:19] LABS: Potassium 4.4 mmoL/L (3.5-5.1); Sodium 136 mmol/L (136-145)
[2023-03-22 11:21] LABS: Blood Urea Nitrogen 44 mg/dl (9-20); Creatinine Clearance Estimated 25 mL/min (50-200); Estimated Glomerular Filt Rate 27 ml/min (>60); GFR (African American) 33 ML/MIN (>60)
[2023-03-22 11:22] LABS: Anion Gap 9.4 mEq/L (5-15); Carbon Dioxide 27 mmol/L (22.0-30.0); Glucose 97 mg/dl (74-100)
[2023-03-22] MEDS: diphenhydrAMINE 50MG/ML VIAL 50 MG IV (11:28)
[2023-03-22] MEDS: LIDOCAINE 1% 10ML MDV 20 ML IJ (11:28)
[2023-03-22] MEDS: VERAPAMIL 2.5MG/ML 2ML VIAL 2.5 MG IV (11:29)
[2023-03-22] MEDS: 0.9 % SODIUM CHLORIDE 500 ML 25 ML IV (11:29)
[2023-03-22] MEDS: HEPARIN 1,000 UNITS/500ML NS (CATH LAB) 3000 UNIT IV (11:29)
[2023-03-22] MEDS: NITROGLYCERIN 800MCG/8ML SYR (CATH LAB) 800 MCG IA (11:29)
[2023-03-22] MEDS: HEPARIN 1,000 UNITS/ML 10ML VIAL (CATH LAB) 10000 UNIT IV (11:32)
[2023-03-22 11:43] LABS: Basophils % 0.3 % (0.1-2.0); Eosinophils # 0.1 K/mm3 (0.0-0.4); Eosinophils % 0.9 % (0.1-12.0); Hematocrit 40.3 % (42.0-52.0); Hemoglobin 12.9 g/dL (14.1-18.0); Lymphocytes # 0.8 K/mm3 (0.7-4.5); Lymphocytes % 11.6 % (10-50); Mean Corpuscular HGB Conc 32.1 g/dL (31.8-35.4); Mean Corpuscular Hemoglobin 31.5 pg (27.0-31.2); Mean Corpuscular Volume 98.1 fl (80-94); Mean Platelet Volume 7.1 fl (7.4-10.4); Monocytes # 0.3 K/mm3 (0.1-1.0); Monocytes % 4.5 % (1.7-9.3); Neutrophils # 5.3 K/mm3 (1.8-7.8); Neutrophils % 82.7 % (37.0-80.0); Platelet Count 153 K/mm3 (142-424); Red Cell Distribution Width 14.2 % (11.5-17.5); White Blood Count 6.5 K/mm3 (4.8-10.8)
[2023-03-22] MEDS: MIDAZOLAM HCL 1MG/1ML 5ML VIAL 1 MG IV (12:01)
[2023-03-22] MEDS: FENTANYL 100MCG/2ML VIAL 50 MCG IV (12:02)
[2023-03-22] MEDS: IOPAMIDOL-370 (76%);100ML BOTTLE 40 ML IV (13:57)
== END 2023-03-22 15:03 | disposition home or self-care (01) ==
LOC: CATHLAB 10:33
PROVIDERS: PCP Family Medicine; Visit Provider Internal Medicine
DX: E03.9 Hypothyroidism, unspecified (principal); I42.8 Other cardiomyopathies; I47.29 Other ventricular tachycardia; N18.9 Chronic kidney disease, unspecified; R93.1 Abnormal findings on diagnostic imaging of heart and coronary circulation; R94.31 Abnormal electrocardiogram [ECG] [EKG]; I20.89 Other forms of angina pectoris; Z79.899 Other long term (current) drug therapy
CPT/HCPCS: 80048; 85025; 93458; 99152; C1725; C1769; J1644; Q9967

== ENCOUNTER 2023-03-24 10:40 | Emergency (ER) | payer MEDICARE, SELFPAY ==
[2023-03-24 10:41] VITALS: BP 131/56; PULSE 79; RESP 18; TEMP 36.9; O2SAT 99; BMI 19.9
[2023-03-24 11:00] VITALS: BP 125/58; PULSE 74; RESP 16; O2SAT 98
--- NOTE | 2023-03-24 11:18 | ED_ITS ---
Discharge Plan Disposition Patient Disposition: Home, Self-Care Prescriptions Prescriptions: New ondansetron 4 mg tablet,disintegrating 4 mg PO Q6H PRN (Reason: nausea and vomiting) 5 Days Qty: 20 0RF No Action atorvastatin 40 mg tablet 20 mg PO ONCE trazodone 50 mg tablet 50 mg PO ONCE aspirin [Adult Low Dose Aspirin] 81 mg tablet,delayed release (DR/EC) 81 mg PO ONCE metoprolol succinate 25 mg tablet extended release 24 hr 12.5 mg PO DAILY Qty: 30 2RF levothyroxine 75 mcg tablet PO Patient Comments: TAKE 1 TABLET BY MOUTH ONCE DAILY doxazosin 4 mg tablet PO amlodipine 10 mg tablet PO Patient Comments: TAKE 1 TABLET BY MOUTH ONCE DAILY B complex-vitamin C-folic acid 0.8 MG tablet 0.8 mg PO DAILY calcitriol 0.25 MCG capsule 0.25 mcg PO DAILY allopurinol 100 mg tablet 100 mg PO DAILY Patient Comments: TAKE 1 TABLET BY MOUTH ONCE DAILY Referrals Follow up/Referrals: Nura Teran MD [Primary Care Provider] - See instructions Clinical Impressions Clinical Impression: Nausea vomiting and diarrhea, Dehydration, Generalized weakness, CKD (chronic kidney disease), Hypomagnesemia Instructions Patient Instructions: DI for Diarrhea and Traveler's Diarrhea -- Adult, DI for Diarrhea and Traveler's Diarrhea -- Child, DI for Nausea -- Adult, DI for Nausea -- Child Discharge ED Provider: Thierry Guevara General Adult HPI General Chief complaint: Nausea/Vomiting/Diarrhea Stated complaint: vomiting diarrhea weakness heart cath 03/22 Time Seen by Provider: 03/24/23 11:12 Mode of Arrival: Ambulatory Source of Information: Patient Limitations: No Limitations Description of Symptoms (Recalled from ER Triage Doc. by RN): patient states he had out patient cardiac cath and began feeling sick night, nausea, vomiting, and diarrhea. Patient states he is just feeling weak which is unusual for him. History of Present Illness HPI narrative: Patient is a 72-year-old male presents today with generalized weakness. States that he had a heart cath on for bradycardia which was clean. Was started on N-acetylcysteine by his certified orthotist and has had 2 days of nausea vomiting diarrhea had some hip cramping yesterday and states that his legs feel heavy at this point but he has normal range of motion he is able to walk again no focal paralysis etc. Presents primarily today for generalized weakness. Related Data Home Medications Medication Instructions Recorded Confirmed aspirin 81 mg tablet,delayed 81 mg PO ONCE Blood thinner 09/04/17 03/15/23 release (Adult Low Dose Aspirin) atorvastatin 40 mg tablet 20 mg PO ONCE Cholesterol 09/04/17 03/15/23 trazodone 50 mg tablet 50 mg PO ONCE sleep 09/04/17 03/15/23 vitamin B complex-vitamin C-folic 0.8 mg PO DAILY Supplement 09/26/17 03/15/23 acid 0.8 mg tablet calcitriol 0.25 mcg capsule 0.25 mcg PO DAILY Supplement 11/02/20 03/15/23 amlodipine 10 mg tablet mg PO 03/15/23 03/15/23 doxazosin 4 mg tablet mg PO 03/15/23 03/15/23 levothyroxine 75 mcg tablet mcg PO 03/15/23 03/15/23 allopurinol 100 mg tablet 100 mg PO DAILY 03/22/23 03/22/23 Previous Rx's Medication Instructions Recorded metoprolol succinate 25 mg 12.5 mg PO DAILY #30 tabs 02/13/23 tablet,extended release 24 hr ondansetron 4 mg disintegrating 4 mg PO Q6H PRN nausea and 03/24/23 tablet vomiting 5 days #20 tabs Allergies Allergy/AdvReac Type Severity Reaction Status Date / Time No Known Allergies Allergy Verified 03/15/23 14:32 [facility] Disclaimer: The information contained in this section may have been updated after the patient was seen, as this information can be updated by other users. Medical History Abnormal Holter monitor finding Chronic kidney disease Hypothyroidism NSVT (nonsustained ventricular tachycardia) Social History Smoking Status: Never smoker alcohol intake: never substance use type: denies use current occupational status: retired Travel in the last 8 weeks: None household members: spouse housing: house caffeine: Yes ROS Obtained: Yes All systems reviewed & no additional complaints except as documented Physical Exam General General appearance: alert Respiratory Respiratory exam: Present normal lung sounds bilaterally and respiratory distress Cardiovascular Cardiovascular exam: Present regular rate and normal rhythm Extremities Exam Extremities exam: Present other (Normal strength in bilateral upper and lower extremities proximally and distally) Neurological Exam Neurological exam: Present alert Medical Decision Making Alonzo Inquiry Pt receiving controlled substance: No Vital Signs: 03/24/23 10:41 03/24/23 11:00 03/24/23 11:30 Temperature 98.4 F Temperature Source Oral Pulse Rate 74 71 Pulse Rate [Right] 79 Respiratory Rate 18 16 11 L Blood Pressure 125/58 L 132/57 L Blood Pressure [Right Arm] 131/56 L Blood Pressure Mean [Right Arm] 81 Blood Pressure Source [Right Arm] Automatic Cuff 02 Sat by Pulse Oximetry 99 98 98 Oxygen Delivery Method Room Air Room Air Room Air Lab Data Lab results reviewed: Yes I reviewed the patient's lab results. Lab Results 03/24/23 11:05: WBC 10.6 D, RBC 3.85 L, Hgb 12.3 L, Hct 37.5 L, MCV 97.3 H, MCH 32.0 H, MCHC 32.9, RDW 14.6, Plt Count 136 L, MPV 8.0, Neut % (Auto) 91.4 H, Lymph % (Auto) 3.4 L, [place] % (Auto) 5.0, Eos % (Auto) 0.1, Baso % (Auto) 0.2, Neut # (Auto) 9.7 H, Lymph # (Auto) 0.4 L, [place] # (Auto) 0.5, Eos # (Auto) 0.0, Baso # (Auto) 0.0, Sodium 130 L, Potassium 4.5, Chloride 102, Carbon Dioxide 21 L, Anion Gap 11.5, BUN 31 H D, Creatinine 2.20 H, Estimated Creat Clear 27, Estimated GFR 30 L, Est GFR ( Amer) 36 L, Glucose 106 H, Calcium 8.0 L, Phosphorus 2.7, Magnesium 1.4 L, Total Bilirubin 0.5, AST 63 H, ALT 50, Alkaline Phosphatase 72, Total Creatine Kinase 408 H, C-Reactive Protein 20.5 H, Total Protein 6.6, Albumin 3.9, Globulin 2.7, Albumin/Globulin Ratio 1.4 03/24/23 11:05 03/24/23 11:05 Orders (Tests/Meds): ED MEDICATIONS Generic Name Dose Route Start Last Admin Trade Name Freq PRN Reason Stop Dose Admin Lactated Ringer's 1,000 mls @ 999 mls/hr 03/24/23 11:30 03/24/23 11:24 Lactated Ringer's 1000 Ml Bag IV 03/24/23 12:30 999 mls/hr .Q1H1M WADE Administration Discontinued Medications Generic Name Dose Route Start Last Admin Trade Name Segunq PRN Reason Stop Dose Admin Magnesium Oxide 400 mg 03/24/23 11:57 03/24/23 11:59 Magnesium Oxide 400mg Tablet PO 03/24/23 11:58 400 mg ONCE ONE Administration Ondansetron HCl 4 mg 03/24/23 11:17 03/24/23 11:24 Ondansetron 4mg/2ml Vial IV 03/24/23 11:18 4 mg ONCE ONE Administration ORDERS Category Date Time Status CBC w/Auto Diff [Complete Blood Count Auto Diff] Stat Lab 03/24/23 11:05 Results CK [Creatine Kinase] Stat Lab 03/24/23 11:05 Completed CMP [Comprehensive Metabolic Panel] Stat Lab 03/24/23 11:05 Completed CRP [C-Reactive Protein] Stat Lab 03/24/23 11:05 Completed Magnesium Stat Lab 03/24/23 11:05 Completed Phosphorous Stat Lab 03/24/23 11:05 Completed Medical Decision Narrative: 72-year-old gentleman here with nausea vomiting diarrhea and generalized weakness with a normal neurologic exam. He has no focality to his symptoms but could have some inflammatory myopathy we will get a CK and electrolytes as well as CMP. IV fluids will be administered as well as Zofran. I suspect majority of symptoms are secondary to dehydration from probable viral gastroenteritis. Will reassess shortly. Reassessment 12:28 PM patient feeling significantly better symptoms have resolved. Tolerating p.o. prescription of Zofran sent to his pharmacy. Magnesium replaced. Serial exams benign. Mild hyponatremia none concerning at this point. Will follow-up with primary care doctor return the emergency room as needed. Critical Care Critical Care Time Critical Care Time: No
[2023-03-24] MEDS: ONDANSETRON 4MG/2ML VIAL 4 MG IV (11:24)
[2023-03-24] MEDS: LACTATED RINGERS 1000ML 1,000 ML 999 ML IV (11:24)
[2023-03-24 11:26] LABS: Chloride 102 mmol/L (98-107); Sodium 130 mmol/L (136-145)
[2023-03-24 11:27] LABS: Potassium 4.5 mmoL/L (3.5-5.1)
[2023-03-24 11:29] LABS: Alanine Aminotransferase 50 U/L (12-78); Albumin Level 3.9 g/dl (3.5-5.0); Albumin/Globulin Ratio 1.4 (1.1-1.8); Alkaline Phosphatase 72 U/L (38-126); Anion Gap 11.5 mEq/L (5-15); Aspartate Amino Transferase 63 U/L (17-59); Bilirubin,Total 0.5 mg/dl (0.2-1.3); Blood Urea Nitrogen 31 mg/dl (9-20); Carbon Dioxide 21 mmol/L (22.0-30.0); Creatine Kinase 408 U/L (55-170); Creatinine Clearance Estimated 27 mL/min (50-200); Estimated Glomerular Filt Rate 30 ml/min (>60); GFR (African American) 36 ML/MIN (>60); Globulin 2.7 g/dL (1.3-3.2); Glucose 106 mg/dl (74-100); Phosphorous 2.7 mg/dl (2.5-4.5); Total Protein,Serum 6.6 g/dl (6.3-8.2)
[2023-03-24 11:30] VITALS: BP 132/57; PULSE 71; RESP 11; O2SAT 98
[2023-03-24 11:30] LABS: Magnesium 1.4 mg/dl (1.6-2.3)
[2023-03-24 11:34] LABS: Basophils % 0.2 % (0.1-2.0); Eosinophils % 0.1 % (0.1-12.0); Hematocrit 37.5 % (42.0-52.0); Hemoglobin 12.3 g/dL (14.1-18.0); Lymphocytes # 0.4 K/mm3 (0.7-4.5); Lymphocytes % 3.4 % (10-50); Mean Corpuscular HGB Conc 32.9 g/dL (31.8-35.4); Mean Corpuscular Volume 97.3 fl (80-94); Monocytes # 0.5 K/mm3 (0.1-1.0); Neutrophils # 9.7 K/mm3 (1.8-7.8); Neutrophils % 91.4 % (37.0-80.0); Platelet Count 136 K/mm3 (142-424); Red Blood Count 3.85 M/mm3 (4.60-6.20); Red Cell Distribution Width 14.6 % (11.5-17.5); White Blood Count 10.6 K/mm3 (4.8-10.8)
[2023-03-24 11:36] LABS: C-Reactive Protein 20.5 mg/L (0-4)
--- NOTE | 2023-03-24 11:44 | PC.NURSE ---
Rounded on pt. No needs voiced. Visitor at BS and call light within reach.
[2023-03-24 11:47] LABS: MANUAL DIFFERENTIAL MANUAL DIFFERENTIAL (MANUAL DIFF)
[2023-03-24] MEDS: MAGNESIUM OXIDE 400MG TABLET 400 MG PO (11:59)
--- NOTE | 2023-03-24 12:18 | PC.NURSE ---
PT FEELING BETTER, TOLERATING WATER AND CRACKERS UPDATED
--- NOTE | 2023-03-24 12:27 | PC.NURSE ---
DR MUNOZ AT BEDSIDE TO REEVALUATE PT
[2023-03-24 12:30] VITALS: BP 130/60; PULSE 71; RESP 18; O2SAT 97
[2023-03-24 12:34] VITALS: BP 127/61; PULSE 73; RESP 18; TEMP 36.9; O2SAT 98
[2023-03-24 12:37] VITALS: BP 127/61; PULSE 88; RESP 18; TEMP 36.7; O2SAT 98
[2023-03-24 12:42] LABS: Lymphocytes % 7 % (10-50); Monocytes % 2 % (2-9); Neutrophils % 91 % (42-76); Total Cells Counted 100
[2023-03-24 12:43] LABS: Platelet Estimate Slight Decrease; RBC Morphology Normal
--- NOTE | 2023-03-25 10:46 | ECG_ITS ---
APPROVED REPORT Exam: Resting ECG HR:75 bpm ECG Measurements Heart Rate 75 AXES VT 137 P 72 QRSd 96 QRS 74 QT 382 T 89 QTc 412 Conclusion SINUS RHYTHM MODERATE ST DEPRESSION [0.05+ mV ST DEPRESSION] ABNORMAL ECG UNCONFIRMED REPORT Electronically signed by : Mendel Reo MD 03/26/2023 17:59:00
== END 2023-03-24 12:43 | disposition home or self-care (01) ==
PROVIDERS: Emergency Provider Student in an Organized Health Care Education/Training Program; PCP Family Medicine
DX: E86.0 Dehydration (principal); R53.1 Weakness; E83.42 Hypomagnesemia; E87.1 Hypo-osmolality and hyponatremia; R11.2 Nausea with vomiting, unspecified; R19.7 Diarrhea, unspecified; N18.9 Chronic kidney disease, unspecified; E03.9 Hypothyroidism, unspecified
CPT/HCPCS: 80053; 82550; 83735; 84100; 85007; 85025; 86140; 93005; 96361; 96374; 99285; J2405

== ENCOUNTER 2023-03-28 10:17 | Outpatient (CLI) | payer MEDICARE, SELFPAY ==
[2023-03-28 11:32] LABS: Chloride 107 mmol/L (98-107); Potassium 4.6 mmoL/L (3.5-5.1); Sodium 136 mmol/L (136-145)
[2023-03-28 11:35] LABS: Anion Gap 9.6 mEq/L (5-15); Blood Urea Nitrogen 44 mg/dl (9-20); Carbon Dioxide 24 mmol/L (22.0-30.0); Estimated Glomerular Filt Rate 30 ml/min (>60); GFR (African American) 36 ML/MIN (>60)
[2023-03-28 11:36] LABS: Calcium 8.3 mg/dl (8.4-10.2); Glucose 94 mg/dl (74-100)
== END 2023-03-28 23:59 ==
PROVIDERS: PCP Family Medicine; Visit Provider Nurse Practitioner Family
DX: E03.9 Hypothyroidism, unspecified (principal); I42.9 Cardiomyopathy, unspecified; I47.29 Other ventricular tachycardia; N18.9 Chronic kidney disease, unspecified
CPT/HCPCS: 36415; 80048

== ENCOUNTER 2023-04-13 09:10 | Outpatient (CLI) | payer MEDICARE, SELFPAY ==
[2023-04-13 09:36] LABS: Blood Urea Nitrogen 41 mg/dl (9-20); Estimated Glomerular Filt Rate 30 ml/min (>60); GFR (African American) 36 ML/MIN (>60)
--- NOTE | 2023-04-13 10:01 | MR_ITS ---
APPROVED REPORT Rn Enterostomal: CLINICAL INDICATION Cardiomyopathy evaluation TECHNIQUE Image Acquisition: Cardiac magnetic resonance (CMR) was performed on Siemens Espree MRI 1.5T scanner. Software platform sequences were performed using the Siemens Indisys MR B19 platform. A set of three-plane, low-resolution, large [id number] localizers were initially acquired. Then axial, coronal, sagittal TrueFISP, as well as axial HASTE images, were obtained. These were followed by gated TrueFISP breathold cinematic sequences obtained in the short axis with 8 mm slices and 2 mm gaps, 2-chamber (vertical long axis), 3-chamber, 4-chamber (horizontal long axis). A bolus of contrast was injected intravenously with first-pass sequences obtained in the short axis and four-chamber planes. After approximately 10 minutes, a TI manager star sequence was performed to determine the optimal TI time. Using the optimized TI time, delayed contrast enhancement segmented inversion???recovery TurboFLASH sequences were obtained in the short axis, 2-chamber, 3-chamber, and 4-chamber projections. 2D-velocity phase mapping was performed. Functional parameters were calculated by offline analysis on an independent workstation ([employer], [employer]). Contrast: ProHance??? (Gadoteridol) FINDINGS MORPHOLOGY AND FUNCTION Left ventricle: The left ventricle is mildly dilated. The indexed left ventricular end-diastolic volume (LVEDVi) is 110 ml/m2 (reference range 57-105 ml/m2 in males, 56-96 ml/m2 in females). Low-normal left ventricular systolic function is present. There is normal left ventricular wall thickness. There are no regional wall motion abnormalities noted. LVEF is calculated at 51.8% (reference range 57-77%). Right ventricle: The right ventricle is mildly dilated. The indexed right ventricular end-diastolic volume (RVEDVi) is 121 ml/m2 (reference range 61-121 ml/m2 in males, 48-112 ml/m2 in females). Low-normal right ventricular systolic function is present. RVEF is calculated at 51.2% (reference range 52-72% in males, 51-71% in females). Atria: The left atrium is mildly dilated. The maximum indexed left atrial volume is 55 ml/m2 (reference range 26-52 ml/m2 in males, 27-53 ml/m2 in females). The right atrium is normal in size. The maximum indexed right atrial volume is 55 ml/m2 (reference range 18-90 ml/m2). Aorta: The diameter of the aortic annulus is normal, measuring 26 mm (coronal view reference range 21-30 mm in males, 19-27 mm in females). The diameter of the aortic sinus is normal, measuring 36 mm (coronal view reference range 25-42 mm in males, 24-36 mm in females). The diameter of the sinotubular junction is normal, measuring 29 mm (coronal view reference range 18-32 mm in males, 18-28 mm in females). The diameters of the ascending and descending thoracic aorta are normal. Main pulmonary artery: The main pulmonary artery diameter is normal. Pericardium: The pericardial thickness is normal. The pericardial thickness measures 2.7 cm (normal < 4.0 cm). There is no pericardial effusion. VALVES The valvular morphologies in the visualized sequences appear normal. There is no significant valvular stenosis or regurgitation of the mitral, aortic, tricuspid, or pulmonic valve noted visually. Systolic anterior motion of the mitral valve is not visualized. Ratio of pulmonary to systemic flow, Qp:Qs ratio = 1.3 (normal < or = 1.2), demonstrating possible evidence of interatrial shunt. TISSUE CHARACTERIZATION Resting Perfusion: Normal myocardial blood flow at rest. No evidence of resting hypoperfusion. Myocardial Fibrosis and/or edema: Normal gadolinium kinetics are present. No evidence of late gadolinium enhancement is noted, consistent with absence of myocardial scarring, infarction, or necrosis. T2-weighted imaging demonstrates no evidence of myocardial edema or inflammation. OTHER No other significant findings are noted. However, this exam is focused on the cardiac structure and function. IMPRESSION Mildly dilated LV size with low-normal LV systolic function. LVEDVi= 110 ml/m2 and LVEF= 51.8%. Mildly dilated RV size with low-normal RV systolic function. RVEDVi= 121 ml/m2 and RVEF= 51.2%. Mild LA dilation. No CMR evidence of myocardial scarring, infarction, or necrosis. No evidence of myocardial edema or inflammation. Perfusion analysis demonstrates normal blood flow at rest with no evidence of resting hypoperfusion. Ratio of pulmonary to systemic flow, Qp:Qs ratio = 1.3 (normal < or = 1.2), demonstrating possible evidence of interatrial shunt. Overall, this CMR demonstrates mild biventricular dilation with low-normal biventricular systolic function. In the setting of symptoms and previous LVEF of 45% on TTE, this most likely represents non-ischemic cardiomyopathy with ongoing functional recovery. COMPARISON None CRITICAL RESULT None COMMUNICATION Per this written report The findings of this cardiac MR were reviewed, reported, and signed by Alfonzo Gates MD (Induction Heating Equipment Setter). Conclusion Electronically signed by : Zeynep Gates MD 05/01/2023 14:28:41
[2023-04-13] MEDS: GADOTERIDOL INJ 17ML SYRINGE 13 ML IV (11:50)
[2023-04-13] MEDS: 0.9 % SODIUM CHLORIDE 50 ML VIAL IV (11:50)
[2023-04-13] MEDS: SODIUM CHLORIDE 0.9% 10ML SYR (RAD ONLY) 10 ML IV (11:50)
== END 2023-04-13 23:59 ==
PROVIDERS: PCP Family Medicine; Visit Provider Nurse Practitioner Family
DX: I42.8 Other cardiomyopathies (principal)
CPT/HCPCS: 36415; 75561; 82565; 84520; A9576

== ENCOUNTER 2023-06-26 07:47 | Outpatient (CLI) | payer MEDICARE, SELFPAY ==
[2023-06-26 07:54] LABS: Microscopic, Urine URINE MICROSCOPIC (MICROSCOPIC)
[2023-06-26 08:10] LABS: Hemoglobin 12.4 g/dL (14.1-18.0); Mean Corpuscular HGB Conc 31.1 g/dL (31.8-35.4); Mean Corpuscular Hemoglobin 31.2 pg (27.0-31.2); Mean Corpuscular Volume 100.3 fl (80-94); Platelet Count 210 K/mm3 (142-424); Red Blood Count 3.99 M/mm3 (4.60-6.20); Red Cell Distribution Width 14.8 % (11.5-17.5); White Blood Count 4.9 K/mm3 (4.8-10.8)
[2023-06-26 08:35] LABS: Alanine Aminotransferase 28 U/L (12-78); Albumin Level 4.1 g/dl (3.5-5.0); Albumin/Globulin Ratio 1.5 (1.1-1.8); Alkaline Phosphatase 80 U/L (38-126); Anion Gap 10.3 mEq/L (5-15); Aspartate Amino Transferase 39 U/L (17-59); Bilirubin,Total 0.5 mg/dl (0.2-1.3); Blood Urea Nitrogen 52 mg/dl (9-20); Calcium 9.4 mg/dl (8.4-10.2); Carbon Dioxide 29 mmol/L (22.0-30.0); Chloride 104 mmol/L (98-107); Estimated Glomerular Filt Rate 27 ml/min (>60); GFR (African American) 33 ML/MIN (>60); Globulin 2.7 g/dL (1.3-3.2); Glucose 93 mg/dl (74-100); Potassium 4.3 mmoL/L (3.5-5.1); Sodium 139 mmol/L (136-145); Total Protein,Serum 6.8 g/dl (6.3-8.2); Uric Acid 6.8 mg/dl (3.5-8.5)
[2023-06-26 08:45] LABS: Appearance,Urine CLEAR (Clear); Bilirubin,Urine Negative (Negative); Blood, Urine Negative (Negative); Color,Urine YELLOW (Yellow); Glucose,Urine (UA) Negative (Negative); Ketones,Urine Negative (Negative); Leukocyte Esterase,Urine Negative (Negative); Nitrate,Urine Negative (Negative); Protein,Urine Negative (Negative); Urobilinogen,Urine 0.2 EU/dl (0.2)
[2023-06-26 08:47] LABS: Intact Parathyroid Hormone 57.3 pg/mL (7.5-53.5)
[2023-06-26 08:52] LABS: 25-OH Vitamin D, Total 38.4 ng/mL (30-100)
[2023-06-26 09:06] LABS: Thyroid Stimulating Hormone 1.67 uIU/mL (0.465-4.68)
[2023-06-26 09:24] LABS: Bacteria,Urine Trace /lpf; Sperm,Urine OCC /lpf; Squamous Epithelial Cell,Urine Occasional #/hpf (0-5); WBC,Urine Occasional #/hpf (0-3)
== END 2023-06-26 23:59 | disposition home or self-care (01) ==
LOC: LAB 07:48
PROVIDERS: PCP Family Medicine; Visit Provider Internal Medicine Nephrology
DX: E55.9 Vitamin D deficiency, unspecified (principal); I12.9 Hypertensive chronic kidney disease with stage 1 through stage 4 chronic kidney disease, or unspecified chronic kidney disease; N18.30 Chronic kidney disease, stage 3 unspecified; E03.9 Hypothyroidism, unspecified; N40.0 Benign prostatic hyperplasia without lower urinary tract symptoms; E79.0 Hyperuricemia without signs of inflammatory arthritis and tophaceous disease; Z68.1 Body mass index [BMI] 19.9 or less, adult
CPT/HCPCS: 36415; 80053; 81001; 82306; 83970; 84443; 84550; 85014; 85018; 85048; 85049

== ENCOUNTER 2023-09-18 07:14 | Outpatient (CLI) | payer MEDICARE, SELFPAY ==
[2023-09-18 07:23] LABS: Microscopic, Urine URINE MICROSCOPIC (MICROSCOPIC)
[2023-09-18 07:41] LABS: Hematocrit 35.3 % (42.0-52.0); Hemoglobin 11.5 g/dL (14.1-18.0); Mean Corpuscular HGB Conc 32.6 g/dL (31.8-35.4); Mean Corpuscular Hemoglobin 32.3 pg (27.0-31.2); Mean Corpuscular Volume 99.3 fl (80-94); Platelet Count 171 K/mm3 (142-424); Red Blood Count 3.55 M/mm3 (4.60-6.20); Red Cell Distribution Width 14.7 % (11.5-17.5)
[2023-09-18 07:51] LABS: Appearance,Urine CLEAR (Clear); Bilirubin,Urine Negative (Negative); Blood, Urine Negative (Negative); Color,Urine YELLOW (Yellow); Glucose,Urine (UA) Negative (Negative); Ketones,Urine Negative (Negative); Leukocyte Esterase,Urine Negative (Negative); Nitrate,Urine Negative (Negative); Protein,Urine Negative (Negative); Urobilinogen,Urine 0.2 EU/dl (0.2)
[2023-09-18 08:59] LABS: Alanine Aminotransferase 24 U/L (12-78); Albumin Level 3.6 g/dl (3.5-5.0); Anion Gap 8.1 mEq/L (5-15); Aspartate Amino Transferase 36 U/L (17-59); Bilirubin,Total 0.6 mg/dl (0.2-1.3); Blood Urea Nitrogen 54 mg/dl (9-20); Calcium 8.9 mg/dl (8.4-10.2); Carbon Dioxide 27 mmol/L (22.0-30.0); Chloride 106 mmol/L (98-107); Estimated Glomerular Filt Rate 27 ml/min (>60); GFR (African American) 33 ML/MIN (>60); Globulin 2.7 g/dL (1.3-3.2); Glucose 90 mg/dl (74-100); Potassium 4.1 mmoL/L (3.5-5.1); Sodium 137 mmol/L (136-145); Total Protein,Serum 6.3 g/dl (6.3-8.2); Uric Acid 7.1 mg/dl (3.5-8.5)
[2023-09-18 09:00] LABS: Albumin/Globulin Ratio 1.3 (1.1-1.8); Alkaline Phosphatase 68 U/L (38-126)
[2023-09-18 09:10] LABS: Intact Parathyroid Hormone 55.1 pg/mL (7.5-53.5)
[2023-09-18 09:15] LABS: 25-OH Vitamin D, Total 39.4 ng/mL (30-100)
[2023-09-18 09:29] LABS: Thyroid Stimulating Hormone 1.43 uIU/mL (0.465-4.68)
[2023-09-18 09:45] LABS: Squamous Epithelial Cell,Urine Occasional #/hpf (0-5); WBC,Urine Occasional #/hpf (0-3)
== END 2023-09-18 23:59 | disposition home or self-care (01) ==
LOC: LAB 07:15
PROVIDERS: PCP Family Medicine; Visit Provider Internal Medicine Nephrology
DX: N18.30 Chronic kidney disease, stage 3 unspecified (principal); E03.9 Hypothyroidism, unspecified; N40.0 Benign prostatic hyperplasia without lower urinary tract symptoms; E55.9 Vitamin D deficiency, unspecified; E79.0 Hyperuricemia without signs of inflammatory arthritis and tophaceous disease; I12.9 Hypertensive chronic kidney disease with stage 1 through stage 4 chronic kidney disease, or unspecified chronic kidney disease
CPT/HCPCS: 36415; 80053; 81001; 82306; 83970; 84443; 84550; 85014; 85018; 85048; 85049

== ENCOUNTER 2024-01-22 07:38 | Outpatient (CLI) | payer MEDICARE, SELFPAY ==
[2024-01-22 07:59] LABS: Microscopic, Urine URINE MICROSCOPIC (MICROSCOPIC)
[2024-01-22 08:19] LABS: Hematocrit 34.8 % (42.0-52.0); Hemoglobin 11.2 g/dL (14.1-18.0); Mean Corpuscular HGB Conc 32.2 g/dL (31.8-35.4); Mean Corpuscular Hemoglobin 31.3 pg (27.0-31.2); Mean Corpuscular Volume 97.1 fl (80-94); Platelet Count 188 K/mm3 (142-424); Red Blood Count 3.59 M/mm3 (4.60-6.20); Red Cell Distribution Width 14.1 % (11.5-17.5); White Blood Count 4.8 K/mm3 (4.8-10.8)
[2024-01-22 09:15] LABS: Appearance,Urine CLEAR (Clear); Bilirubin,Urine Negative (Negative); Blood, Urine Negative (Negative); Color,Urine YELLOW (Yellow); Glucose,Urine (UA) Negative (Negative); Ketones,Urine Negative (Negative); Leukocyte Esterase,Urine Negative (Negative); Nitrate,Urine Negative (Negative); Protein,Urine Negative (Negative); Urobilinogen,Urine 0.2 EU/dl (0.2)
[2024-01-22 09:26] LABS: Creatinine,Urine Random 40 mg/dL (Not Estab.)
[2024-01-22 09:36] LABS: Squamous Epithelial Cell,Urine Occasional #/hpf (0-5)
[2024-01-22 09:48] LABS: Alanine Aminotransferase 27 U/L (12-78); Albumin Level 3.7 g/dl (3.5-5.0); Albumin/Globulin Ratio 1.7 (1.1-1.8); Alkaline Phosphatase 83 U/L (38-126); Anion Gap 9.5 mEq/L (5-15); Aspartate Amino Transferase 42 U/L (17-59); Bilirubin,Total 0.4 mg/dl (0.2-1.3); Blood Urea Nitrogen 56 mg/dl (9-20); Calcium 8.8 mg/dl (8.4-10.2); Carbon Dioxide 28 mmol/L (22.0-30.0); Chloride 103 mmol/L (98-107); Estimated Glomerular Filt Rate 31 ml/min (>60); GFR (African American) 38 ML/MIN (>60); Globulin 2.2 g/dL (1.3-3.2); Glucose 84 mg/dl (74-100); Potassium 4.5 mmoL/L (3.5-5.1); Sodium 136 mmol/L (136-145); Total Protein,Serum 5.9 g/dl (6.3-8.2)
[2024-01-22 09:58] LABS: Intact Parathyroid Hormone 94.5 pg/mL (7.5-53.5)
[2024-01-22 10:04] LABS: 25-OH Vitamin D, Total 39.2 ng/mL (30-100)
[2024-01-22 10:17] LABS: Thyroid Stimulating Hormone 2.47 uIU/mL (0.465-4.68)
== END 2024-01-22 23:59 | disposition home or self-care (01) ==
LOC: LAB 07:40
PROVIDERS: PCP Family Medicine; Visit Provider Internal Medicine Nephrology
DX: N18.32 Chronic kidney disease, stage 3b (principal); E03.9 Hypothyroidism, unspecified; E55.9 Vitamin D deficiency, unspecified; I10 Essential (primary) hypertension; N40.0 Benign prostatic hyperplasia without lower urinary tract symptoms; E79.0 Hyperuricemia without signs of inflammatory arthritis and tophaceous disease
CPT/HCPCS: 36415; 80053; 81001; 82306; 82570; 83970; 84156; 84443; 85027

== ENCOUNTER 2024-07-22 07:33 | Outpatient (CLI) | payer MEDICARE, SELFPAY ==
--- OUTSIDE RECORDS SUMMARY | 2023-06-18 10:15 | XMS_ITS ---
Author Organization [facility] Address [address] [facility] [address] [facility] [address] AndresMIGUEL [id number] Care Team Providers Care Berry Picker Machine Operator Name Role Phone Thierry Teran Primary Care Provider Allergies No Known Allergies Results Component Value Reference Range Notes P-Basic Metabolic Panel (BMP ) Reviewed date:06/21/2023 09:10:50 AM Interpretation:gluc 112, bun 54, creat 2.42, gfr 28 Performing Lab: Notes/Report: Test performed by [facility], [address] , [address], [place] [address] Deng Hernandez MD, Utilities Service Investigator CLIA: [id number] Sodium 139 135-145 mEq/L Potassium 4.2 3.5-5.3 [...] MCG 1 tab(s) ora lly once a day for 30 day(s) Active Calcitriol 0.25 MCG 1 cap(s) orally once a day for 30 day(s) Active Allopurinol 100 MG 1 tab(s) orally once a day Active Nystatin-Triamcinolone 837460-6.1 UNIT/GM 1 application Externally Twice a day 02/19/2023 Active hydroCHLOROthiazide 25 MG 1/2 tablet in the morning Orally Once a day Active Metoprolol Succinate ER 25 MG 1/2 Orally Once a day Active Doxazosin Mesylate 4 MG Take 1 tablet by mouth once daily for 90 Active traZODone HCl 50 MG 1 tab(s) orally once daily prn, Active Problems Problem Type SNOMED Code ICD Code Onset Dates Problem Status W/U Status Risk Notes Problem 42616537 Nonischemic cardiomyopathy (I42.8) Active confirmed Vital Signs Blood pressure systolic 122 mm Hg 06/18/19 24 Blood pressure diastolic 70 mm Hg 024 Heart Rate 52 /min 06/18/2023 Height 70.25 in 06/18/2023 Weight 132.0 lbs 06/18/2023 BMI 18.80 kg/m2 06/18/2023 Encounters Encounter Location Date Provider Diagnosis [facility] [address] [place] [address] [address] [facility] [address] [place], [place] [phone] 06/18/2023 Thierry Teran Essential hypertensi on I10 ; Nonischemic cardiomyopathy I42.8 and Renal insufficiency N28.9 Assessments Encounter Date Diagnosis (ICD Code) Assessment Notes Treatment Notes Treatment Clinical Notes Section Notes 06/18/2023 Essential hypertension (ICD-10 - I10) 06/18/2023 Nonischemic cardiomyopathy (ICD-10 - I42.8) 06/18/2023 Renal insufficiency (ICD-10 - N28.9) Plan Of Treatment Next Appt Details Follow Up: 4 Months, Reason: Provider Name:Thierry Harris er, 08/28/2024 02:30:00 PM, [facility] [address], [address], [place], [place], [id number], Progress Notes * Omar PERALTADOB:1950 (73 yo M)Acc No.[id number]:06/18/2023 Progress Notes Patient: Bam DEBBIEOmar KAPLAN Provider: Thierry Teran M.D. :1950 A ge:72 Y S ex:Male Date:06/18/2023 Address:[facility] [address] [id number] Subjective: * Chief Complaints: * 1 . [...] Orally Once a day , Taking Nystatin-Triamcinolone 533033-0.1 UNIT/GM Cream 1 application Externally Twice a [...] G eneral Examination: General Appearance: N AD. HEENT: u nremarkable. Oral cavity: n o lesions, mucosa moist and WNL, no erythema. Neck: s upple, no lymphadenopathy. Chest: n ormal shape and expansion. Heart: R SR, no ectopics, S4 present. Lungs: c lear to auscultation. Abdomen: soft and nontender. Neurologic Exam: I ntact, gait normal. Skin: n ormal, no rash. Peripheral pulses: n ormal . Back: mild dorsal kyphosis. Extremities: t race l eg edema. Assessment: * Assessment: 1. E ssential hypertension [...] encounter * Follow Up: 4 Months * Billing Information: * Visit Code: 25005 Office Visit, Est Pt., Level 4. * Procedure Codes: * Electronic signature of Thierry Teran MD on 07/22/2024 at 07:37 AM EDT Sign off status: Pending * Provider: Thierry Teran M.D. Date: 0 06/18/2023 Generated for Danishai bibiana/Jose Eduardo/eTransmitting on: 0 07/22/2024 07:37 AM EDT History and Physical Notes * HPI (History [...]
--- OUTSIDE RECORDS SUMMARY | 2023-10-22 09:30 | XMS_ITS ---
Author Organization [facility] Address [address] [facility] [address] [facility] [address] [place] [id number] Care Team Providers Care Concession Stand Attendant Name Role Phone Thierry Teran Primary Care Provider [phone] Allergies No Known Allergies Results Component Value Reference Range Notes P-Comprehensive Metabolic Pa rivka (CMP) Reviewed date:10/29/2023 10:37:39 AM Interpretation:Na 134, gluc 121, bun 59, Cr 2.26, gfr 30 Performing Lab: Notes/Report: Test performed by [facility] [address] [place] [address] , [address], [place] [address] Deng Hernandez MD, Squaring Machine Operator CLIA: [id number] Sodium 134 135-145 mmol/L Potassium 4.5 3.5-5.3 [...] Interpretation:Normal Performing Lab: Notes/Report: Test performed by [facility] [address] [place] [address] , [address], [place] [address] Deng Hernandez MD, Squaring Machine Operator CLIA: [id number] PSA 1.29 <4.00 ng/mL Please note this is an ultrasensitive PSA assay with a lower limit of detection of 0.014 ng/mL. This test is performed by the Tamy ECLIA methodology. Values obtained with different assay methods or kits cannot be directly compared. P-TSH Reviewed date:10/29/2023 10:37:40 AM Interpretation:Normal Performing Lab: Notes/Report: Test performed by [facility] [address] [place] [address] , [address], [place] [address] Deng Hernandez MD, Squaring Machine Operator CLIA: [id number] TSH 1.17 0.43-5.25 mU/L REASON FOR VISIT 4 months, Needs labs with PSA Medications Medication SIG (Take, Route, Frequency, Duration) Notes Start Date End Date Status traZODone HCl 50 MG 1 tab(s) orally once daily prn, Active Trudi-Dain - 1 tab(s) orally once a day Active Calcitriol 0.25 MCG 1 cap(s) orally once a day for 30 day(s) Active Doxazosin Mesylate 4 MG Take 1 tablet by mouth once daily for 90 Active Levothyroxine Sodium 50 MCG 1 tab(s) ora lly once a day for 30 day(s) Active Metoprolol Succinate ER 25 MG 1/2 Orally Once a day Active Nystatin-Triamcinolone 512989-9.1 UNIT/GM 1 application Externally Twice a day [...] 10/22/2023 Encounters Encounter Location Date Provider Diagnosis [facility] [address] [facility] [address] [place], [place] [id number] 10/22/2023 Thierry Teran Essential hypertensi on I10 [...] 5 months, Reason: Provider Name:Thierry Harris er, 08/28/2024 02:30:00 PM, [address], [address], [place], [place], [id number], Progress Notes * PERALTAOmarDOB:1950 (73 yo M)Acc No.[id number]:10/22/2023 Progress Notes Patient: Omar ALEXANDER Provider: Thierry Teran M.D. :1950 A ge:72 Y S ex:Male Date:10/22/2023 Address:[address] [place] [address] , [place], [id number] Subjective: * Chief Complaints: * 1 . [...] Dr. Fernandez (nephrology) 6 weeks ago in [place]. Last labwork I have is from June [...] Orally Once a day , Taking Nystatin-Triamcinolone 238081-3.1 UNIT/GM Cream 1 application Externally Twice a [...] n ormal shape and expansion. Heart: R SR. Lungs: c lear to auscultation. Abdomen: soft and nontender, no organomegaly or masses.? Neurologic Exam: I ntact, gait normal. Skin: n ormal, no rash. Peripheral pulses: n ormal . Back: mild dorsal kyphosis. Extremities: n o leg edema. Genitalia: not examined. Assessment: * Assessment: 1. E [...] encounter * Follow Up: 5 months * Billing Information: * Visit Code: 90766 Office Visit, Est Pt., Level 4. * Procedure Codes: * Electronic signature of Thierry Teran MD on 07/22/2024 at 07:36 AM EDT Sign off status: Pending * Provider: Thierry Teran M.D. Date: 0 10/22/2023 Generated for Printi ng/Faxing/eTransmitting on: 0 07/22/2024 07:36 AM EDT History and Physical Notes * [...]
--- OUTSIDE RECORDS SUMMARY | 2024-03-27 10:30 | XMS_ITS ---
Author Organization [facility] Address [address] [facility] [address] [place] [id number] Care Team Providers Care Regional Sales Director Name Role Phone Thierry Teran Primary Care Provider Allergies No Known Allergies REASON FOR VISIT 5 month f/u Medications Medication SIG (Take, Route, Frequency, Duration) Notes Start Date End Date Status Calcitriol 0.25 MCG 1 cap(s) orally once a day for 30 day(s) Active Levothyroxine Sodium 50 MCG 1 tab(s) ora lly once a day for 30 day(s) Active Trudi-Dain - 1 tab(s) orally once a day Active traZODone HCl 50 MG 1 tab(s) orally once daily prn, Active Doxazosin Mesylate 4 MG Take 1 tablet by mouth once daily for 90 Active hydroCHLOROthiazide 25 MG 1/2 tablet in the morning Orally Once a day Active Metoprolol Succinate ER 25 MG 1/2 Orally Once a day Active Nystatin-Triamcinolone 373113-2.1 UNIT/GM 1 application Externally Twice a day 02/19/2023 Active Allopurinol 100 MG 1 tab(s) orally once a day Active Problems Problem Type SNOMED Code ICD Code Onset Dates Problem Status W/U Status Risk Notes Problem [id number] Chronic renal failure, stage 3b (N18.32) Active confirmed Vital Signs Blood pressure systolic 120 mm Hg 03/27/19 25 Blood pressure diastolic 70 mm Hg 025 Heart Rate 58 /min 03/27/2024 Height 70.25 in 03/27/2024 Weight 137.0 lbs 03/27/2024 BMI 19.52 kg/m2 03/27/2024 Encounters Encounter Location Date Provider Diagnosis [place] [address] [place] [id number] 03/27/2024 Thierry Teran Chronic renal failure, stage [...] [address], [address], [place], [place], [id number], Progress Notes * Omar PERALTADOB:1950 (73 yo M)Acc No.[id number]:03/27/2024 Progress Notes Patient: Omar ALEXANDER Provider: Thierry Teran M.D. :1950 A ge:73 Y S ex:Male Date:03/27/2024 Address:[address] [place] [address] , [place], [id number] Subjective: * Chief Complaints: * 1 . [...] Orally Once a day , Taking Nystatin-Triamcinolone 076490-3.1 UNIT/GM Cream 1 application Externally Twice a [...] Chest: n ormal shape and expansion. Heart: s inus bradycardia, S4. Lungs: c lear to auscultation. Abdomen: soft [...] HG * Follow Up: 5 months * Billing Information: * Visit Code: 20011 Office Visit, Est Pt., Level 4. * Procedure Codes: G2211 Complex e/m visit add on. 3074F SYST BP LT 130 MM HG. 3078F DIAST BP < 80 MM HG. * Electronic signature of Thierry Teran MD on 07/22/2024 at 07:36 AM EDT Sign off status: Pending * Provider: Thierry Teran M.D. Date: 0 03/27/2024 Generated for Printi ng/Fashwethag/eTransmitting on: 0 07/22/2024 07:36 AM EDT History [...]
--- OUTSIDE RECORDS SUMMARY | 2024-06-09 02:09 | XMS_ITS | Continuity of Care Document ---
Author Organization [facility] Phone Care Team Providers Care Driver Recruiter Name Role Phone ALLAN ANDERSON JR Primary Attending [phone] ALLAN ANDERSON JR Unavailable ALLAN ANDERSON JR Admitting DECLINED, PCP Primary Care Unavailable RESULTS Patient: AGAPITO KNOX Date of : November 19 9 LABORATORY RESULTS ORDER 100: PSA TOTAL AND MAX E (LOINC: 76303-0) ORDER DATE: June 04, 2024 7:57:00 PM UTC Specimen Source: Serum/Plasm a Specimen Type: Acellular blo od (serum or plasma) specimen PERFORMING LAB: [address] [id number] Result Comment: June 05 12:11:00 PM UTC The table below lists the probability of prostate cancer for Result Comment: June 05, 2024 12:11:00 PM UTC Result Comment: June 05, 2024 12:11:00 PM UTC men with non-suspicious MARCUS results and total PSA between Result Comment: June 05, 2024 12:11:00 PM UTC 4 and 10 ng/mL, by patient age (Catalsindhu et al, JACQUE 1998, Result Comment: June 05, 2024 12:11:00 PM UTC [id number]). Result Comment: June 05, 2024 12:11:00 PM UTC % Free PSA 50-64 yr 65-75 yr Result Comment: June 05, 2024 12:11:00 PM UTC 0.00-10.00% 56% 55% Result Comment: June 05, 2024 12:11:00 PM UTC 10.01-15.00% 24% 35% Result Comment: June 05, 2024 12:11:00 PM UTC 15.01-20.00% 17% 23% Result Comment: June 05, 2024 12:11:00 PM UTC 20.01-25.00% 10% 20% Result Comment: June 05, 2024 12:11:00 PM UTC >25.00% 5% 9% Result Comment: June 05, 2024 12:11:00 PM UTC Please note: Geoffrey et al did not make specific Result Comment: June 05, 2024 12:11:00 PM UTC recommendations regarding the use of Result Comment: June 05, 2024 12:11:00 PM UTC percent free PSA for any other population Result Comment: June 05, 2024 12:11:00 PM UTC of men. Result Comment: June 05, 2024 12:11:00 PM UTC Performed at: [facility] Result Comment: June 05, 2024 12:11:00 PM UTC [address] [place], [place] [id number] Result Comment: June 05, 2024 12:11:00 PM UTC Line Maintenance Supervisor: Benny Ojeda PhD, Phone: [phone] Result Comment: June 05, 2024 12:11:00 PM UTC Final Result Date: June 04, 2024 7:57:00 PM UTC (TECH: LAB) LOINC TEST FLAG RESULT REFERENCE RANGE UPDA FADY BY 2857-1 Prostate specific Ag [Mass/volume] in Serum or Plasma N 2.2 ng/mL 0.0-4.0 June 04, 2024 7 :57:00 PM UTC (TECH: LAB) 88898-1 Prostate Specific Ag Free [Mass/volume] in Serum or Plasma N 0.67 ng/mL N/A June 04, 2024 7 :57:00 PM UTC (TECH: LAB) 26202-0 Prostate Specific Ag Free/Prostate specific Ag.total in Serum or Plasma N 30.5 % June 04, 2024 7 :57:00 PM UTC (TECH: LAB) LABORATORY NARRATIVE RESULTS Information is not available RADIOLOGY RESULTS Information is not available PATHOLOGY NARRATIVE RESULTS Information is not available MICROBIOLOGY RESULTS No Micro Labs/Results Exist for Patient BLOOD ADMIN RESULTS Information is not available MEDICATIONS HOME MEDICATIONS Status RXNORM NDC Medication Dose Route Frequency Dates Comments Reported By Updated By Drug Treatment Unknown DISCHARGE MEDICATIONS Status RXNORM NDC Medication Dose Route Frequency Dates Comments Physician Updated By No Discharge Medication Info rmation Available INPATIENT MEDICATIONS Status RXNORM NDC Medication Dose Route Frequency Rat e Quantity Dates Comments Physician Updated By No Inpatient Medication Info rmation Available SOCIAL HISTORY SOCIAL HISTORY SNOMED-CT Social History Element Description Effective Dates Offered Cessation Comment UpdatedBy [id number] Smoking Status Unknown If Ever Smoked SOCIAL HISTORY - Gender Sex: Male SOCIAL HISTORY - Status : status i nformation is not available Intention in Next Year: intention information is not available SOCIAL HISTORY - Sexual Behavior Sexual Orientation Gender Identity SNOMED-CT Description SNO MED -CT Description Activity Level No of Partners Partner Type UpdatedBy Information is not available HEALTH CONCERNS Problems Concern Status Health Concern problem infor mation not available. Smoking Status Status Years Used Consumed packs p er day Health Concern smoking histo ry information not available. Family History Concern Status Health Concern family histor y information not available. ENCOUNTERS ENCOUNTER INFORMATION Reason for Visit R97.20 Admission June 04, 2024 7:57:[address] [phone] Discharge June 04, 2024 8:57:00 PM [facility] DI SCHARGED TO HOME OR SELF CARE ENCOUNTER DIAGNOSES Notes information is not ian ilable. Code System Diagnosis Onset Date Diagnosis information is not available. ABSTRACT DIAGNOSES Code System Diagnosis Updated By R97.20 ICD10 ELEVATED PROSTAT E SPECIFIC ANTIGEN [PSA] [id number] on June 09, 2024 6:09:23 AM [facility] R97.20 ICD10 ELEVATED PROSTAT E SPECIFIC ANTIGEN [PSA] [id number] on June 09, 2024 6:09:25 AM [facility] CARE TEAM Care Driver Recruiter Role ALLAN ANDERSON Primary Attending ALLAN ANDERSON Referring ALLAN ANDERSON Admitting PCP DECLINED Primary Care CARE TEAM CARE polysomnography technician Role on Team Status Start Date End Date Update d By JUSTIN Gorman JR, MD Referring normal June 04, 2024 4:00:00 AM [facility] June 04, 2024 8:57:00 PM [facility] [id number] on June 05, 2024 11:02:34 AM [facility] JUSTIN Gorman JR, MD Attending normal June 04, 2024 4:00:00 AM [facility] June 04, 2024 8:57:00 PM [facility] [id number] on June 05, 2024 11:02:34 AM [facility] JUSTIN Gorman JR, MD Admitting normal June 04, 2024 4:00:00 AM [facility] June 04, 2024 8:57:00 PM [facility] [id number] on June 05, 2024 11:02:34 AM [facility] DECLINED PCP PCP normal June 04, 2024 7:57:28 PM [facility] June 04, 2024 8:57:00 PM [facility] [id number] on June 05, 2024 11:02:34 AM [facility]
--- OUTSIDE RECORDS SUMMARY | 2024-07-22 07:37 | XMS_ITS | Clinical Summary ---
Author Organization Healthcare Address [address] [place] [address] Care Team Providers Care Process Operator Name Role Phone Charan Teran MD Primary Care Provider [phone] Family History Medical History Relation Name Comments Hyperlipidemia Father Hypertension Father Conversions - Other Mother Bright d isease Kidney disease Mother Relation Name Status Comments Father Mother Social History Tobacco Use Types Packs/Day Years Used Date Smoking Tobacco: Never Sex and Gender Information Value Date Recorded Sex Assigned at Not on file Legal Sex Male 7:09 PM EDT Gender Identity Not on file Sexual Orientation Not on file Last Filed Vital Signs Vital Sign Reading Time Taken Comments Blood Pressure - - Pulse - - Temperature - - Respiratory Rate - - Oxygen Saturation - - Inhaled Oxygen Concentration - - Weight 72.8 kg (160 lb 9.7 oz) 04/17/2016 3:39 P M EST Height 175.3 cm (5' 9 ) 11/16/2014 1:24 PM EDT Body Mass Index 23.72 11/16/2014 1:24 PM EDT Plan of Treatment Not on file Care Teams Process Operator Relationship Specialty Start Date End Date Charan Teran MD [address] [place] [address] PCP - General 06/25/20
--- OUTSIDE RECORDS SUMMARY | 2024-07-22 07:37 | XMS_ITS | Data Portability ---
Author Organization [facility] Address [address] [place] [address] Assessment No assessment recorded. Plan of Treatment Reminders Order Date Submit Date Provider Last Modified By Organization Details Last Modified Time Details Appointments OV EST 15 2025 10:30A M Larry Leon Jr, MD Not available Not available Not available Lab PSA, serum or plasma [email or web address] [place] [address] (Laboratory), [address] [place], [address], 06/12/2024 15:52:35 PSA, serum or plasma 2023 024 [facility] (Laboratory), [address] [place] [address] , [place], [address], 06/06/2023 18:13:56 PSA, serum or plasma 2022 023 [email or web address] Not available 06/07/2022 16:30:42 Referral None recorded. Procedures None recorded. Surgeries None recorded. Imaging None recorded. Medication Orders doxazosin 4 mg tablet 2024 025 [facility], [address] [place], [address], 06/04/2024 11:45:52 doxazosin 4 mg tablet 2023 024 [facility], [address] [place], [address], 06/06/2023 11:00:20 Patient TargetsNo targets recorded. Patient InstructionsNo instructions recorded. Reason for Referral None Reported. Results Created Date Observation Date Name Description Value Unit Range Abnormal Flag Note LastModifiedBy Organization Detail LastModifiedTime 06/08/19 23 06/07/2022 PROST ATE SPECI FIC AG (PSA) prostate specific Ag (PSA) 3.22 NG/mL 0.0-4. 0 Not Available [facility] (Lab Registration) [address] [place], [address], 06/07/2022 16:30:41 06/08/19 23 06/07/2022 PROST ATE SPECI FIC AG (PSA) note Julio Cesar s other johns noted testi ng perfo rmed at: [facility] [address] [place], [place] [address] [phone] Graeme jolley MD CLIA: [id number] Not Available [facility] (Lab Registration) [address] [place], [address], 06/07/2022 16:30:41 06/06/19 24 06/06/2023 PROST ATE SPECI FIC AG (PSA) prostate specific Ag (PSA) 1.88 NG/mL 0.0-4. 0 Not Available [facility] (Lab Registration) [address] [place], [address], 06/06/2023 18:13:55 06/06/19 24 06/06/2023 PROST ATE SPECI FIC AG (PSA) note Julio Cesar jolley other johns noted testi ng perfo rmed at: [facility] [address] [place], [place] [id number] [phone] Graeme jolley MD CLIA: [id number] Not Available [facility] (Lab Registration) [address] [place], [address], 06/06/2023 18:13:55 06/05/19 25 06/04/2024 PSA TOTAL + %FREE note Julio Cesar s other johns noted testi ng perfo rmed at: [facility] [address] [place] [address] [phone] Graeme jolley MD CLIA: [id number] Not Available [facility] (Lab Registration) [address], [place], [address], 06/05/2024 08:17:03 06/05/19 25 06/05/2024 PSA TOTAL + %FREE prostate specific Ag, serum 2.2 NG/mL 0.0-4. 0 Tamy ECLIA metho dolog y. . Accor ding to the Ameri can Urolo gical Assoc iatio n, Serum PSA shoul d decre ase and remai n at undet ectab le level s after radic al prost atect anali. The AUA defin es bioch emica l recur rence as an initi al PSA value 0.2 ng/mL or great er follo wed by a subse quent confi rmato ry PSA value 0.2 ng/mL or great er. Value s obtai arnel with diffe rent assay metho ds or kits canno t be used inter hernandez eably . Resul ts canno t be inter prete d as absol [place] evide nce of the prese nce or absen ce of jorge escobedo se. SENT TO REFER ENCE LAB Not Available [facility] (Lab Registration) [address], [place], [address], 06/05/2024 08:17:03 06/05/19 25 06/05/2024 PSA TOTAL + %FREE PSA, free 0.67 NG/mL n/a Tamy ECLIA metho dolog y. SENT TO REFER ENCE LAB Not Available [facility] (Lab Registration) [address] [place], [address], 06/05/2024 08:17:03 06/05/19 25 06/05/2024 PSA TOTAL + %FREE % free PSA 30.5 % The table below lists the proba bilit y of prost ate cance r for men with non-s uspic ious MARCUS resul ts and total PSA betwe en 4 and 10 ng/mL , by patie nt age (Rossi putnam et al, JACQUE 1998, 279:1 542). % Free PSA 50-64 yr 65-75 yr 0.00- 10.00 % 56% 55% 10.01 -15.0 0% 24% 35% 15.01 -20.0 0% 17% 23% 20.01 -25.0 0% 10% 20% >25.0 0% 5% 9% Ree rutherford note: Cristal manley et al did not make speci fic recom kapil gray the use of perce nt free PSA for any other popul ation of men. Perfo rmed at: [facility] [address] [facility], [place] [address] [address] Lab Direc tor: Jerry bull PhD, Phone : [phone] SENT TO REFER ENCE LAB Not Available [facility] (Lab Registration) [address] , [place], [address], 06/05/2024 08:17:03 Result Notes None recorded. Medical Equipment None Reported. Allergies No known drug allergies Medications Name Sig Start Date Stop Date Status Note LastModified by Organization Details LastModified Time atorvastatin 20 mg tablet TAKE 1 TABLET BY MOUTH ONCE DAILY AT BEDTIME active Not Available Not Available No t Available trazodone 50 mg tablet TAKE 1 TABLET BY MOUTH ONCE DAILY NEEDED FOR 90 DAYS active Not Available Not Available No t Available amlodipine 5 mg tablet TAKE 1 TABLET BY MOUTH ONCE DAILY active Not Available Not Available No t Available allopurinol 100 mg tablet TAKE 1 TABLET BY MOUTH ONCE DAILY active Not Available Not Available No t Available levothyroxine 75 mcg tablet TAKE 1 TABLET BY MOUTH ONCE DAILY active Not Available Not Available No t Available amlodipine 10 mg tablet TAKE 1 TABLET BY MOUTH ONCE DAILY active Not Available Not Available No t Available levothyroxine 50 mcg tablet TAKE 1 TABLET BY MOUTH ONCE DAILY active Not Available Not Available No t Available cephalexin 500 mg capsule TAKE 1 CAPSULE BY MOUTH EVERY 6 HOURS FOR 10 DAYS active Not Available Not Available No t Available nystatin-tria mcinolone 100,000 unit/g-0.1 % topical cream APPLY CREAM TOPICALLY TWICE DAILY active Not Available Not Available No t Available doxazosin 4 mg tablet Take 1 tablet every day by oral route. 2024 active Not Available Not Available Not Avai lable hydrochloroth iazide 25 mg tablet TAKE 1 TABLET BY MOUTH ONCE DAILY active Not Available Not Available No t Available metoprolol succinate ER 25 mg tablet,extend ed release 24 hr TAKE 1/2 (ONE-HALF) TABLET BY MOUTH ONCE DAILY active Not Available Not Available No t Available methylprednis olone 4 mg tablets in a dose pack TAKE BY MOUTH DIRECTED ON INSIDE OF PACKAGE FOR 6 DAYS active Not Available Not Available N ot Available ondansetron 4 mg disintegratin g tablet DISSOLVE 1 TABLET IN MOUTH EVERY 6 HOURS NEEDED FOR NAUSEA AND VOMITING FOR 5 DAYS active Not Available Not Available N ot Available calcitriol 0.25 mcg capsule TAKE 1 CAPSULE BY MOUTH EVERY OTHER DAY active Not Available Not Available No t Available amoxicillin 875 mg-potassium clavulanate 125 mg tablet TAKE 1 TABLET BY MOUTH TWICE DAILY FOR 5 DAYS active Not Available Not Available No t Available azithromycin 500 mg tablet TAKE 1 TABLET BY MOUTH ONCE DAILY active Not Available Not Available No t Available Trudi-Dain 0.8 mg tablet TAKE 1 TABLET BY MOUTH ONCE DAILY active Not Available Not Available No t Available acetylcystein e 600 mg capsule TAKE 2 CAPSULES BY MOUTH TWICE DAILY (THE DAY BEFORE HEART CATH AND THE DAY OF HEART CATH) active Not Available Not Available No t Available Vitals Date Recorded Body height Body mass index (BMI) Body weight Body temperature Provider Name and Address Organization Details Last Updated DateTime 06/04/2024 177.8 cm 20.1 kg/m2 09009.93 g 98.1 [degF] Navdeep Krishna [facility] & [place] 06/04/2024 09:43:53 Date Recorded Body height Body mass index (BMI) Body weight Body temperature Provider Name and Address Organization Details Last Updated DateTime 06/06/2023 177.8 cm 20.1 kg/m2 85864.93 g 97.9 [degF] Ansley Dolan [facility] & [place] 06/06/2023 09:42:50 Date Recorded Body height Body mass index (BMI) Body weight Body temperature Provider Name and Address Organization Details Last Updated DateTime 06/07/2022 177.8 cm 20.1 kg/m2 04124.93 g 97.7 [degF] Rosario Fritz [facility] & [place] 06/07/2022 09:55:57 Social History None recorded. Functional Status None recorded. Mental Status None recorded. Family History Relationship Description Onset Age of this Age Resolved Age Notes LastModified by Organization Details LastModified Time Father No current problems or disability [email or web address] Not available 05/14 09:56:09 Mother No current problems or disability [email or web address] Not available 05/14 09:56:09 Medical History No medical history recorded. Past Encounters Encounter ID Performer Location Encounter Start Date Encounter Closed Date Diagnosis/Indication Diagnosis SNOMED-CT Code Diagnosis ICD10 Code Diagnosis Note [id number] Larry Leon Jr, MD [facility] [address] [address] 06/07/2022 09:25:18 06/07/2022 11:06:40 Benign prostatic hyperplasia 405460861 N40.0 Patient with history of BPH. He continues on doxazosin 4 mg and is voiding well. Prescripti on was refilled today. Screening for malignant neoplasm of prostate 872438779 Z12.5 digital rectal examinatio n today is benign. We will repeat a PSA and if stable continue yearly monitoring . Chronic ki dney disease 339608234 N18.9 patient's most recent creatinine that I am aware of was 2.1. He continues to see Nephrology . [id number] Larry Leon Jr, MD [facility] [address] [address] 06/06/2023 09:41:38 06/06/2023 10:14:42 Screening for malignant neoplasm of prostate 245175780 Z12.5 digital rectal examinatio n today is benign. last year's PSA was 3.2 which was higher previous PSAs in 1999 and 2019. Benign pro static hyperplasia with outflow obstruction 292261277 N40.1 patient with history of BPH. He continues on doxazosin 4 mg with good results. Chronic ki dney disease 894083509 N18.9 patient's most recent creatinine that I am aware of was 2.1. He continues to see Nephrology . [id number] Larry Leon Jr, MD [facility] [address] [address] 06/04/2024 09:15:17 06/04/2024 10:03:36 Benign prostatic hyperplasia with outflow obstruction 935047430 N40.1 N13.8 patient with history of BPH. He continues on doxazosin 4 mg with good results. Screening for malignant neoplasm of prostate 999973385 Z12.5 Prostate examinatio n today within normal limits. His PSA was 1.8 last year and we will repeat. Health Concerns Section Related Observation LastModified by Organization Detai ls LastModified Time None Recorded Concern Status LastModified by Organization Details LastModified Time None Recorded Advance Directives Directive None Recorded Payers Insurance Date Sequence Insurance Name Policy Number Policy Mark Covered Member ID Mark Member ID Guarantor Name 06/04/2024 1 MEDICARE-[place] ([place]ICARE) Omar Gorman Fabian [id number] Omar Peralta 06/04/2024 2 AARP (MEDICARE SUPPLEMENT) Omar Peralta [id number] Omar Peralta Notes Date Note Type Note Provider Name and Address Organization Details Recorded Time 06/07/2022 text/html Patient is a 71-year-old white male with a history of BPH. I previously saw the patient at [facility] any transfers care to [facility] today. Patient continues on doxazosin 4 mg states he gets up at night about 3 times. He has no new voiding problems. He does drink right up to bedtime and we discussed trying to restrict fluids a couple of hours prior.Patient has a history of chronic kidney disease. He sees Nephrology.Patien t also seen for the prostate cancer screening. His PSA in 2021 was reported as normal but absolute number was not found at that time. His PSA in 2020 was 1.3 and in 2019 was 1.1. Larry Leon Jr, MD [address] [place] [address], [address], [place], [address], [place] - [facility] [place] & [place] 06/12/2022 16:39:42 06/06/2023 text/html patient is a 72-year-old white male with a history of BPH. He returns today for yearly checkup. He continues on doxazosin 4 mg. He states he is voiding well. Patient is very active and states he raises in 5 k's.Patient with history of chronic kidney disease and follows with Nephrology. His last creatinine on record was 2.1.Prostate screening last year revealed a 40 g prostate that was soft on the left side. His PSA returned at 3.2. Previous PSAs were 1.3 in 2020 and 1.1 In 2020. Larry Leon Jr, MD [address] [place] [address], [address], [place], [address], [facility] - [facility] & [place] 06/06/2023 11:00:54 06/04/2024 text/html Patient is a 73-year-old white male with history of BPH. He returns today follow-up. States he continues to void well on doxazosin 4 mg.Patient's PSA last year was 1.8.Patient with history of chronic kidney disease and he states that his function is better per his flagger. Larry Leon Jr, MD [address] [place] [address], [address], [place], [address], [facility] - [facility] & [place] 06/04/2024 14:10:17
--- OUTSIDE RECORDS SUMMARY | 2024-07-22 07:37 | XMS_ITS | Patient Health Record ---
Author [facility] Address [address] [facility] [place] [address] [facility] [address] [place] [id number] Care Team Providers Care Air Chief Marshal Name Role Phone Thierry Teran Primary Care Provider Allergies No Known Allergies Results Component Value Reference Range Notes P-Comprehensive Metabolic Pa rivka (CMP) Reviewed date:10/29/2023 10:37:39 AM Interpretation:Na 134, gluc 121, bun 59, Cr 2.26, gfr 30 Performing Lab: Notes/Report: Test performed by [facility] [address] [place] [address] , [address], [place] [address] Deng Hernandez MD, Biometrics Experimentalist CLIA: [id number] Sodium 134 135-145 mmol/L Potassium 4.5 3.5-5.3 [...] Interpretation:Normal Performing Lab: Notes/Report: Test performed by [facility] [address] [place] [address] , [address], [place] [address] Deng Hernandez MD, Biometrics Experimentalist CLIA: [id number] PSA 1.29 <4.00 ng/mL Please note this is an ultrasensitive PSA assay with a lower limit of detection of 0.014 ng/mL. This test is performed by the Tamy ECLIA methodology. Values obtained with different assay methods or kits cannot be directly compared. P-TSH Reviewed date:10/29/2023 10:37:40 AM Interpretation:Normal Performing Lab: Notes/Report: Test performed by [facility] [address] , [address], [place] [address] Deng Hernandez MD, Biometrics Experimentalist CLIA: [id number] TSH 1.17 0.43-5.25 mU/L Reason For Referral No Information Medications Medication SIG (Take, Route, Frequency, Duration) Notes Start Date End Date Status traZODone HCl 50 MG TAKE 1 TABLET BY JOHN TH ONCE DAILY NEEDED for 90 Active hydroCHLOROthiazide 25 MG 1/2 tablet in the morning Orally Once a day Active Metoprolol Succinate ER 25 MG 1/2 Orally Once a day Active Nystatin-Triamcinolone 882930-0.1 UNIT/GM 1 application Externally Twice a day 02/19/2023 Active Calcitriol 0.25 MCG 1 cap(s) orally once a day for 30 day(s) Active Allopurinol 100 MG 1 tab(s) orally once a day Active Levothyroxine Sodium 50 MCG 1 tab(s) ora lly once a day for 30 day(s) Active Trudi-Dain - 1 tab(s) orally once a day Active Doxazosin Mesylate 4 MG Take 1 tablet by mouth once daily for 90 Active Immunizations Vaccine Route Administration Date Status Comme nts COVID 19 Moderna Unknown 05/12/2020 Administered COVID 19 Moderna Unknown 12/15/2020 Administered Fluzone High Dose (65yr and older) Unknown 11/30/2017 Administered Fluzone High Dose (65yr and older) IM Intramuscular 12/11/2018 Administered Fluzone High Dose (65yr and older) IM Intramuscular 11/03/2019 Administered Fluzone High Dose (65yr and older) IM Intramuscular 01/09/2022 Administered Fluzone High Dose (65yr and older) IM Intramuscular 02/19/2023 Administered Fluzone PF Quad (6-35 months) Unknown 02/04/2021 Administered PNEUMOVAX 23 VACCINE IM Intramuscular 04/07/2019 Administe red Prevnar (PCV13) IM Intramuscular 04/08/2018 Administered xAdministration of injection Unknown 08/31/2016 Administered xFlu shot- 6months-36 months of ywt-TMGK-WWEC-trivalent Unknown 2015 Administered xFlu shot-36 months and older Unknown 2015 Administered Problems Problem Type SNOMED Code ICD Code Onset Dates Problem Status W/U Status Risk Notes Problem 06353160 Essential hypert ension (I10) Active confirmed Problem 80150899 Tinea corporis (B35.4) Active confirme d Problem 831513589 Pure hypercholesterolemia (E78.0) Active confirmed Problem 7386324 Primary insomnia (F51.01) Active confirmed Problem 408945150 Vasovagal syncop e (R55) Active confirmed Problem 894850814 Acquired hypothyroidism (E03.9) Active confirmed Problem 224828479 Renal insufficie ncy (N28.9) Active confirmed Problem 751332142 Cardiac dysrhyth paul, unspecified (I49.9) Active confirmed Problem 520389611 Prostatic hypert rophy (N40.0) Active confirmed Problem 216327477 Seasonal allergi c rhinitis, unspecified allergic rhinitis trigger (J30.2) Active confirmed Problem 768615855672662 Prostate nodule (N40.2) Active confirmed Problem 83088726 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) Active confirmed Problem 824437044 Villous adenoma of colon (D37.4) Active confirmed Problem 52035254 Nonischemic cardiomyopathy (I42.8) Active confirmed Problem 303231900 Chronic renal fa ilure, stage 3b (N18.32) Active confirmed Vital Signs Heart Rate 58 /min 03/27/2024 Blood pressure diastolic 70 mm Hg 03/27/2024 Height 70.25 in 03/27/2024 Blood pressure systolic 120 mm Hg 03/27/2024 Weight 137.0 lbs 03/27/2024 BMI 19.52 kg/m2 03/27/2024 Encounters Encounter Location Date Provider Diagnosis [facility] [address] [place] [id number] 10/22/2023 Thierry Teran Essential hypertensi on I10 ; Acquired hypothyroidism E03.9 ; Renal insufficiency N28.9 and Prostatic hypertrophy N40.0 [facility] [address] [facility] [address] [facility] [address] [place] [id number] 03/27/2024 Thierry Teran Chronic renal failur e, stage 3b N18.32 [facility] [address] [facility] [address] [facility] [address] [place] [id number] 10/29/2023 Thierry Teran Assessments Encounter Date Diagnosis (ICD Code) Assessment Notes Treatment Notes Treatment Clinical Notes Section Notes 10/22/2023 Essential hypertension (ICD-10 - I10) 10/22/2023 Acquired hypothyroidism (ICD-10 - E03.9) 03/27/2024 Chronic renal failure, stage 3b (ICD-10 - N18.32) continue current therapy 10/22/2023 Renal insufficiency (ICD-10 - N28.9) 10/22/2023 Prostatic hypertrophy (ICD-10 - N40.0) Plan Of Treatment Next Appt Details Provider Name:Thierry Harris er, 08/28/2024 02:30:00 PM, [address] [facility] [address] [facility], [address], [place], [id number], Insurance Providers Payer Name Payer Address Payer Phone Subscriber Number Group Number Insured Name Patient Relationship to Insured Coverage Start Date Coverage End Date MEDICARE PART B [address] [address] [place] [id number] Omar Peralta Self - patient is the insured [facility] [address] [place] [address] [id number] Omar Peralta Self - patient is the insured Medications Administered Medication Instructions Date of Administration Dosage Notes Depo- Medrol 40 mg/ml 10/19/2015 1 mL Medical (General) History Medical History History ICD Code Hypothyroidism sleep problems hyperlipidemia Dr. Joe - Urologist Prevnar Pneumovax April 14 and Covid 19 Moderna Surgical History Surgery Date(Month/Year) testicular cancer ? tonsillectomy, as a child colonoscopy, [facility], villous adenoma 09/10/14 colonoscopy, Dr. Celestin 09/2017 colonoscopy, Dr. Celestin, one polyp 11/05/19 21 Hospitalization History Reason Date(Month/Year) see above
--- OUTSIDE RECORDS SUMMARY | 2024-07-22 07:37 | XMS_ITS | Continuity of Care Document ---
Author Organization [place] [facility] [place] Address [address] [place] [address] Assessment No assessment recorded. Plan of Treatment Reminders Order Date Submit Date Provider Last Modified By Organization Details Last Modified Time Details Appointments OV EST 15 2025 10:30A M Larry Leon Jr, MD Not available Not available Not available Lab PSA, serum or plasma 2024 025 [email or web address] [facility] (Laboratory), [address] [place] [address] [place], [address], 06/12/2024 15:52:35 Referral None recorded. Procedures None recorded. Surgeries None recorded. Imaging None recorded. Medication Orders doxazosin 4 mg tablet 2024 025 [facility], [address] [place], [address], 06/04/2024 11:45:52 Patient TargetsNo targets recorded. Patient InstructionsNo instructions recorded. Reason for Referral None Reported. Medical Equipment None Reported. Allergies No known [...] Updated DateTime 06/04/2024 177.8 cm 20.1 kg/m2 17840.93 g 98.1 [degF] Navdeep RIVERA [facility] - [place] & [place] 06/04/2024 09:43:53 Social History None recorded. Functional Status None recorded. Mental Status None recorded. Family History Relationship Description Onset Age of this Age Resolved Age Notes LastModified by Organization Details LastModified Time Father No current problems or disability [email or web address] Not available 05/14 09:56:09 Mother No current problems or disability [email or web address] Not available 05/14 09:56:09 Medical History No medical history recorded. Past Encounters Encounter ID Performer Location Encounter Start Date Encounter Closed Date Diagnosis/Indication Diagnosis SNOMED-CT Code Diagnosis ICD10 Code Diagnosis Note [id number] Larry Leon Jr, MD [facility] [address] [address] 06/04/2024 09:15:17 06/04/2024 10:03:36 Benign prostatic hyperplasia with outflow obstruction 707363051 N40.1 N13.8 patient with history of BPH. He continues on doxazosin 4 mg with good results. Screening for malignant neoplasm of prostate 895601234 Z12.5 Prostate examinatio n today within normal limits. His PSA was 1.8 last year and we will repeat. Health Concerns Section Related Observation LastModified by Organization Detai ls LastModified Time None Recorded Concern Status LastModified by Organization Details LastModified Time None Recorded Payers Encounter Date Sequence Insurance Name Policy Number Policy Mark Covered Member ID Mark Member ID Guarantor Name 06/04/2024 1 [place] Omar Peralta [id number] Omar Peralta 06/04/2024 2 AARP (MEDICARE SUPPLEMENT) Omar Peralta [id number] Omar Peralta Notes Date Note Type Note Provider Name and Address Organization Details Recorded Time 06/04/2024 text/html Patient is a 73-year-old white male with history of BPH. He returns today follow-up. 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 Larry Leon Jr, MD [address] [place] [address], [address], [place], [address], [facility] [place] [facility] [place] & [place] 06/04/2024 14:10:17
[2024-07-22 07:41] LABS: Microscopic, Urine URINE MICROSCOPIC (MICROSCOPIC)
[2024-07-22 08:21] LABS: Hemoglobin 11.2 g/dL (14.1-18.0); Mean Corpuscular HGB Conc 32.9 g/dL (31.8-35.4); Mean Corpuscular Hemoglobin 31.5 pg (27.0-31.2); Mean Corpuscular Volume 95.8 fl (80-94); Nucleated Red Blood Cells # 0 10^3/uL; Nucleated Red Blood Cells % 0 %; Platelet Count 188 K/mm3 (142-424); Red Blood Count 3.55 M/mm3 (4.60-6.20); Red Cell Distribution Width 13.4 % (11.5-17.5); Red Cell Distribution Width-SD 47.6 fL; White Blood Count 3.9 K/mm3 (4.8-10.8)
[2024-07-22 08:42] LABS: Albumin Level 3.9 g/dl (3.5-5.0); Chloride 103 mmol/L (98-107); Creatinine,Urine Random 41 mg/dL (Not Estab.); Potassium 4.4 mmoL/L (3.5-5.1); Sodium 132 mmol/L (136-145)
[2024-07-22 08:45] LABS: Alanine Aminotransferase 28 U/L (12-78); Albumin/Globulin Ratio 1.6 (1.1-1.8); Alkaline Phosphatase 86 U/L (38-126); Anion Gap 5.4 mEq/L (5-15); Aspartate Amino Transferase 44 U/L (17-59); Bilirubin,Total 0.3 mg/dl (0.2-1.3); Blood Urea Nitrogen 49 mg/dl (9-20); Carbon Dioxide 28 mmol/L (22.0-30.0); Estimated Glomerular Filt Rate 35 ml/min (>60); GFR (African American) 42 ML/MIN (>60); Globulin 2.4 g/dL (1.3-3.2); Total Protein,Serum 6.3 g/dl (6.3-8.2)
[2024-07-22 08:46] LABS: Calcium 9.1 mg/dl (8.4-10.2); Glucose 88 mg/dl (74-100)
[2024-07-22 08:48] LABS: Appearance,Urine CLEAR (Clear); Bilirubin,Urine Negative (Negative); Blood, Urine Negative (Negative); Color,Urine YELLOW (Yellow); Glucose,Urine (UA) Negative (Negative); Ketones,Urine Negative (Negative); Leukocyte Esterase,Urine Negative (Negative); Nitrate,Urine Negative (Negative); Protein,Urine Negative (Negative); Specific Gravity, Urine <= 1.005 (1.005-1.030); Urobilinogen,Urine 0.2 EU/dl (0.2)
[2024-07-22 09:37] LABS: Uric Acid 6.3 mg/dl (3.5-8.5)
[2024-07-22 09:38] LABS: WBC,Urine Occasional #/hpf (0-3)
[2024-07-22 09:49] LABS: Intact Parathyroid Hormone 41.1 pg/mL (7.5-53.5)
[2024-07-22 10:38] LABS: 25-OH Vitamin D, Total 38.3 ng/mL (30-100)
== END 2024-07-22 23:59 | disposition home or self-care (01) ==
LOC: LAB 07:34
PROVIDERS: PCP Family Medicine; Visit Provider Internal Medicine Nephrology
DX: I12.9 Hypertensive chronic kidney disease with stage 1 through stage 4 chronic kidney disease, or unspecified chronic kidney disease (principal); N18.32 Chronic kidney disease, stage 3b; E03.9 Hypothyroidism, unspecified; E55.9 Vitamin D deficiency, unspecified; N40.0 Benign prostatic hyperplasia without lower urinary tract symptoms; E79.0 Hyperuricemia without signs of inflammatory arthritis and tophaceous disease
CPT/HCPCS: 36415; 80053; 81001; 82306; 82570; 83970; 84156; 84550; 85027

== ENCOUNTER 2024-10-28 07:23 | Day surgery (SDC) | payer MEDICARE, SELFPAY ==
[2024-10-22 14:29] VITALS: BMI 19.2
[2024-10-28 07:45] VITALS: BP 165/65; PULSE 70; RESP 20; TEMP 36.6; O2SAT 100
[2024-10-28] MEDS: LACTATED RINGERS 1000ML 1,000 ML 50 ML IV (07:51)
--- NOTE | 2024-10-28 07:58 | EXP.GEN.HP ---
HPI HPI HPI: This is a 73-year-old gentleman who returns for repeat colonoscopy. His last colonoscopy was in October 2020 at which time moderate bowel preparation, fairly severe tortuosity and profound spasticity limited visualization. Mild sigmoid diverticulosis noted. A tubular adenoma of the right colon was excised. [facility] Disclaimer: The information contained in this section may have been updated after the patient was seen, as this information can be updated by other users. Medical History Chronic kidney disease Kidney stone History of left heart catheterization (LHC) HFrEF (heart failure with reduced ejection fraction) Chronic kidney disease Hypothyroidism NSVT (nonsustained ventricular tachycardia) Abnormal Holter monitor finding Surgical History History of tonsillectomy H/O removal of testicle Family History Other No significant family history Social History Smoking Status: Never smoker alcohol intake: never substance use type: denies use current occupational status: retired Travel in the last 8 weeks?: None household members: spouse housing: house caffeine: No Have you lived/traveled outside US in past 30 days?: No Contact w/someone who lives/traveled outside US past 30 days?: No Exposure to someone with infectious disease in past 14 days?: No Do you have a fever (greater than 100.4 F or 38 C)?: No Have you tested positive for COVID-19?: No Exposed to someone with COVID-19 in past 14 days?: No Do you have a sore throat?: No Do you have a cough?: No Do you have any weakness?: No Do you have any diarrhea?: No Are you experiencing any unusual bleeding?: No Do you have any muscle aches/pain?: No Do you have any abdominal pain?: No Are you experiencing loss of taste or smell?: No Other Medical History Have you received the Flu Vaccine for this season: Yes Have you received the Pneumonia Vaccine: No Review of Systems Review of Systems Review of systems:: pertinent systems reviewed and negative unless documented below Meds Home Medications and Allergies Home Medications ?Medication ?Instructions ?Recorded ?Confirmed ?Type trazodone 50 mg tablet 50 mg PO DAILY sleep 09/04/17 10/28/24 History calcitriol 0.25 mcg capsule 0.25 mcg PO DAILY Supplement 11/02/20 10/28/24 History doxazosin 4 mg tablet 2 mg PO DAILY 03/15/23 10/28/24 History levothyroxine 75 mcg tablet 75 mcg PO DAILY 03/15/23 10/28/24 History allopurinol 100 mg tablet 100 mg PO DAILY 03/22/23 10/28/24 History metoprolol succinate 25 mg See Rx Instructions .Route 04/03/24 10/28/24 Rx tablet,extended release 24 hr .COMPLEX #30 tabs hydrochlorothiazide 25 mg tablet 25 mg PO QDAY #90 tabs 04/08/24 10/28/24 Rx New Prescriptions to Start Prescriptions: Allergies Allergy/AdvReac Type Severity Reaction Status Date / Time No Known Allergies Allergy Verified 10/23/24 14:31 Exam Data for Last 24 hours Vital signs and Labs for Last 24 Hours: Temp Pulse Resp BP Pulse Ox O2 Del Method 97.8 F 70 20 165/65 H 100 Room Air 10/28/24 07:45 10/28/24 07:45 10/28/24 07:45 10/28/24 07:45 10/28/24 07:45 10/28/24 07:45 Constitutional Constitutional: no acute distress *Routine HEENT Exam Head: Present normocephalic Eye: Present EOMI ENT: Present mucous membranes moist *Routine Neck Exam Neck: Present full ROM *Routine Respiratory Exam Respiratory: Absent respiratory distress *Routine Cardiovascular Exam Cardiovascular: Absent tachycardia *Routine Abdominal Exam Abdominal: Present soft *Routine Rectal Exam Rectal:: deferred *Routine Genitalia Exam Genitalia:: deferred *Routine Extremities Exam Extremities: Present full ROM *Routine Skin Exam Skin: Absent erythema *Routine Neurological Exam Neurological: Present alert Assessment and Plan *Assessment and plan (1) History of colon polyps: Status: Acute Category: Medical Code(s): Z86.0100 - Personal history of colon polyps, unspecified Plan: Colonoscopy today I have discussed the risks and benefits including, but not limited to: Bleeding Infection Damage to surrounding tissue Inherent risks of sedation The patient agrees to proceed.
--- NOTE | 2024-10-28 07:59 | HMH.SCOPE ---
Procedure: Date: 10/28/24 Patient Date of :: 1950 Procedure Performed:: Colonoscopy with polypectomy by means of 30 snare Indications:: History of colon polyps Note: Colonoscopy in October 2020 was somewhat complicated by moderate bowel preparation, significant tortuosity, and severe spasticity. Mild sigmoid diverticulosis noted. A tubular adenoma of the right colon was excised. Performing Provider:: Chris Celestin MD Referring Provider:: . Sedation:: Monitored anesthesia care Procedure:: After informed consent was obtained the patient was taken to the endoscopy suite. Sedation ensued after the patient was transferred to the left lateral decubitus position. Pulse, blood pressure, and oxygen saturation were monitored throughout the procedure. Digital rectal exam revealed no significant abnormality. The colonoscope was placed in position. The entire colon was evaluated. The colonoscope was carefully removed and the patient was transferred to recovery in stable condition. Please see findings and specimens below for detail. Findings:: Bowel preparation fair Fairly profound tortuosity (specifically sigmoid) Severe spasticity Sigmoid diverticulosis (unchanged) Small right colon polyp Specimens:: Right colon polyp (cold biopsy forceps) Recommendations:: Timing of repeat colonoscopy is pending pathology but likely be between 3-5 years. Complications:: No immediate Estimated blood obtained (mL): 1 Colonoscopy Component Colonoscopy Component Was a colonoscopy performed during today's procedure?: Yes Recommended follow up colonoscopy of at least 10 years?: No If no, follow up colonoscopy recommended in ___ years?: (See above) Reason for not recommending >/= 10 yr follow-up interval?: (See above)
--- NOTE | 2024-10-28 08:02 | P.PNANES_ITS ---
[facility] Disclaimer: The information contained in this section may have been updated after the patient was seen, as this information can be updated by other users. Medical History Chronic kidney disease Kidney stone History of left heart catheterization (LHC) HFrEF (heart failure with reduced ejection fraction) Chronic kidney disease Hypothyroidism NSVT (nonsustained ventricular tachycardia) Abnormal Holter monitor finding Surgical History History of tonsillectomy H/O removal of testicle Family History Other No significant family history Social History Smoking Status: Never smoker alcohol intake: never substance use type: denies use current occupational status: retired Travel in the last 8 weeks?: None household members: spouse housing: house caffeine: No Have you lived/traveled outside US in past 30 days?: No Contact w/someone who lives/traveled outside US past 30 days?: No Exposure to someone with infectious disease in past 14 days?: No Do you have a fever (greater than 100.4 F or 38 C)?: No Have you tested positive for COVID-19?: No Exposed to someone with COVID-19 in past 14 days?: No Do you have a sore throat?: No Do you have a cough?: No Do you have any weakness?: No Do you have any diarrhea?: No Are you experiencing any unusual bleeding?: No Do you have any muscle aches/pain?: No Do you have any abdominal pain?: No Are you experiencing loss of taste or smell?: No [facility] Anesthesia Checklist Patient Identification Patient Identification: Verbal (Name & ) Structural Data Admitted From: Home Planned Operative Procedure/s: colonoscopy Consent for Planned Operative Procedure(s) Verified: Yes NPO Status Verified Time NPO: 00:00 Additional verifications Anesthesia Reactions: No Hx Blood Transfusions: No Blood Transfusion Reaction: No Airway Assessment Mallampati Score:: Class II C-Spine Mobility Assessed: Yes TMJ Mobility Assessed: Yes Dentition: Good Dentition Neurological Assessment Level of Consciousness: Awake, Alert and Appropriate Anesthesia Plan Anesthesia Risk discussed: Yes Anesthesia Plan: Verified ASA Class: II Anesthesia Type: MAC
[2024-10-28 08:38] VITALS: BP 101/51; PULSE 56; RESP 16; TEMP 36.8; O2SAT 99
[2024-10-28 08:48] VITALS: BP 99/50; PULSE 54; RESP 16; O2SAT 99
[2024-10-28 08:58] VITALS: BP 114/62; PULSE 61; RESP 16; O2SAT 99
[2024-10-28 09:08] VITALS: BP 119/58; PULSE 64; RESP 16; O2SAT 99
== END 2024-10-28 09:10 | disposition home or self-care (01) ==
PROVIDERS: PCP Family Medicine; Visit Provider Surgery
PROC: 0DJD8ZZ Inspection of Lower Intestinal Tract, Via Natural or Artificial Opening Endoscopic (ICD-10-PCS; CPT 45380; principal; 2024-10-28 08:30)
DX: K57.30 Diverticulosis of large intestine without perforation or abscess without bleeding (principal); K63.5 Polyp of colon; K58.9 Irritable bowel syndrome, unspecified; Z86.0100 Personal history of colon polyps, unspecified; N18.9 Chronic kidney disease, unspecified; I50.22 Chronic systolic (congestive) heart failure; E03.9 Hypothyroidism, unspecified; Z79.890 Hormone replacement therapy; Z79.899 Other long term (current) drug therapy
CPT/HCPCS: 45380; J2003; J2704; J7120

== ENCOUNTER 2024-12-16 12:20 | Outpatient (CLI) | payer MEDICARE, SELFPAY ==
--- OUTSIDE RECORDS SUMMARY | 2023-06-18 09:15 | XMS_ITS ---
Author Organization [facility] Address [address] [facility] [address] [place]IGUEL [id number] Care Team Providers Care Operations/Dispatch Name Role Phone Thierry Teran Primary Care Provider Allergies No Known Allergies Results Component Value Reference Range Notes P-Basic Metabolic Panel (BMP ) Reviewed date:06/21/2023 09:10:50 AM Interpretation:gluc 112, bun 54, creat 2.42, gfr 28 Performing Lab: Notes/Report: Test performed by [facility], [address] , [address], [place] [address] Deng Hernandez MD, Building Services Engineer CLIA: [id number] Sodium 139 135-145 mEq/L Potassium 4.2 3.5-5.3 mEq/L Chloride 103 97-108 mEq/L CO2 26 22-32 mEq/L Glucose 112 65-99 mg/dL BUN 54 8-23 mg/dL Creatinine 2.42 0.70-1.30 mg/dL Calcium 9.0 8.6-10.4 mg/dL eGFR by Creatinine 28 >59 mL/min/1.73m2 REASON FOR VISIT 4 mo ck up, Needs labs with PSA Medications Medication SIG (Take, Route, Frequency, Duration) Notes Start Date End Date Status Trudi-Dain - 1 tab(s) orally once a day Active Levothyroxine Sodium 50 MCG 1 tab(s) ora lly once a day; Duration: 30 day(s) Active Calcitriol 0.25 MCG 1 cap(s) orally once a day; Duration: 30 day(s) Active Allopurinol 100 MG 1 tab(s) orally once a day Active Nystatin-Triamcinolone 631836-2.1 UNIT/GM 1 application Externally Twice a day 02/19/2023 Active hydroCHLOROthiazide 25 MG 1/2 tablet in the morning Orally Once a day Active Metoprolol Succinate ER 25 MG 1/2 Orally Once a day Active Doxazosin Mesylate 4 MG Take 1 tablet by mouth once daily; Duration: 90 Active traZODone HCl 50 MG 1 tab(s) orally once daily prn, Active Problems Problem Type SNOMED Code ICD Code Onset Dates Problem Status W/U Status Risk Notes Problem Cardiomyopathy (80494906) Nonischemic cardiomyopathy (I42.8) Active confirmed Vital Signs Blood pressure systolic 122 mm Hg 06/18/19 24 Blood pressure diastolic 70 mm Hg 024 Heart Rate 52 /min 06/18/2023 Height 70.25 in 06/18/2023 Weight 132.0 lbs 06/18/2023 BMI 18.80 kg/m2 06/18/2023 Encounters Encounter Location Date Provider Diagnosis [facility] [address] [place] [address] [address] [place] Campos [id number] 06/18/2023 Thierry Teran Essential hypertensi on I10 ; Nonischemic cardiomyopathy I42.8 and Renal insufficiency N28.9 Assessments Encounter Date Diagnosis (ICD Code) Assessment Notes Treatment Notes Treatment Clinical Notes Section Notes 06/18/2023 Essential hypertension (ICD-10 - I10) 06/18/2023 Nonischemic cardiomyopathy (ICD-10 - I42.8) 06/18/2023 Renal insufficiency (ICD-10 - N28.9) Plan Of Treatment Next Appt Details Follow Up: 4 Months, Reason: Provider Name:Thierry Harris er, 01/29/2025 03:00:00 PM, [address] [place] [address], [address], [place], [phone], Progress Notes * Omar PERALTADOB:1950 (74 yo M)Acc No.[id number]:06/18/2023 Progress Notes Patient: Omar ALEXANDER Provider: Thierry Teran M.D. :1950 A ge:72 Y S ex:Male Date:06/18/2023 Address:[address], [id number] Subjective: * Chief Complaints: * 1 . 4 mo ck up. 2. Needs labs with PSA. * HPI: C ardiology: The pt is here for a check up on Hypertension and Hyperlipidemia. Pt states he is doing good and denies any new concerns. Pt is not fasting. Pt states refills are not needed at this time. Pt states he saw Cardiology in March and had a heart cath with clear coronaries, but EF45-50%. Subsequntly had cardiac MRI with EF 51%. Apparently evidenced non ischemic cardiomathy which has shown improvement. See pt docs. Pt states the Atorvastatin, Aspirin, and Amlodipine were discontinued and he was placed on Hctz 25 mg 1/2 tablet daily. Denies : Chest Pain. D enies : Short of Breath. D enies : Dizziness. D enies : Palpitations. * ROS: D ERMATOLOGY: no R irvin. n o H kevon. G ASTROENTEROLOGY: no N ausea. n o V omiting. n o D iarrhea.? U ROLOGY: no D ifficulty urinating. n o B lood in urine. * Medical History: H ypothyroidism, Sleep problems, Hyperlipidemia, Dr. Joe - Urologist, Prevnar, Pneumovax, April 14 and Covid 19 Moderna. 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 Celestin 09/2017, colonoscopy, Dr. Celestin, one polyp 11/04/2020. * Hospitalization/Major Diagno stic Procedure: s ee above . * Family History: F ather: alive 81 yrs. M other: , Bright's disease. 2 brother(s) , 2 sister(s) - healthy. 2 son(s) . . * Social History: C URRENT TOBACCO USE S moking Status: Patient does NOT smoke. C affeine: yes, frequency:coffee, pop and tea, QD. Home smoke detector use: yes. Marital Status: . Alcohol: No. * Medications: T aking hydroCHLOROthiazide 25 MG Tablet 1/2 tablet in the morning Orally Once a day , Taking Nystatin-Triamcinolone 340366-9.1 UNIT/GM Cream 1 application Externally Twice a day , Taking Metoprolol Succinate ER 25 MG Tablet Extended Release 24 Hour 1/2 Orally Once a day , Taking Allopurinol 100 MG Tablet 1 tab(s) orally once a day , Taking Calcitriol 0.25 MCG Capsule 1 cap(s) orally once a day , Taking Trudi-Dain - Tablet 1 tab(s) orally once a day , Taking Levothyroxine Sodium 50 MCG Tablet 1 tab(s) orally once a day , Taking Doxazosin Mesylate 4 MG Tablet Take 1 tablet by mouth once daily , Taking traZODone HCl 50 MG Tablet 1 tab(s) orally once daily prn, , Discontinued Aspirin 81 MG 1 P.O. Q HS , Discontinued amLODIPine Besylate 5 MG Tablet 1 tab(s) orally once a day , Discontinued Atorvastatin Calcium 20 MG Tablet TAKE 1 TABLET BY MOUTH ONCE DAILY AT BEDTIME , Medication List reviewed and reconciled with the patient * Allergies: N .K.D.A. Objective: * Vitals: W t:132.0, Temp:97.7, BP:122/70, HR:52, Nurse:EMILY, Ht: 70.25, BMI:18.80. * Examination: G eneral Examination: General Appearance: N AD. H EENT: u nremarkable.?Oral cavity: n o lesions, mucosa moist and WNL, no erythema. N sayra: s upple, no lymphadenopathy. C hest: n ormal shape and expansion. H eart: R SR, no ectopics, S4 present. L ungs: c lear to auscultation. A bdomen: soft and nontender. N eurologic Exam: I ntact, gait normal. S kin: n ormal, no rash. P eripheral pulses: n ormal . B ack: mild dorsal kyphosis. E xtremities: t race l eg edema. ? Assessment: * Assessment: 1. E ssential hypertension - I10 (Primary) 2 . N onischemic cardiomyopathy - I42.8 3 . R enal insufficiency - N28.9 Plan: * Treatment: Value Reference Range B UN 54 H 8-23 - mg/dL * C alcium 9.0 8.6-10.4 - mg/dL * C hloride 103 97-108 - mEq/L * C O2 26 22-32 - mEq/L * C reatinine 2.42 H 0.70-1.30 - mg/dL * G lucose 112 H 65-99 - mg/dL * P otassium 4.2 3.5-5.3 - mEq/L * S odium 139 135-145 - mEq/L * e GFR by Creatinine 28 L >59 - mL/min/1.73m2 * Evangelina Ruiz 06/21/2023 9:04: 20 AM >See phone encounter * Follow Up: 4 Months * Images: Billing Information: * Visit Code: 84152 Office Visit, Est Pt., Level 4. * Procedure Codes: * Electronic signature of Thierry Teran MD on 12/16/2024 at 12:25 PM EST Sign off status: Pending * Provider: Thierry Teran M.D. Date: 0 06/18/2023 Generated for Danishai ng/Fashwethag/eTransmitting on: 1 02/16/2024 12:25 PM EST History and Physical Notes * HPI (History of Present Illness) Category Sub-Category Detail Notes Category Not es Cardiology Short of Breath Chest Pain Palpitations Dizziness Examination Category Sub-Category Detail Notes Category Not es General Examination HEENT: unremarkable Heart: RSR, no ectopics, S4 present Lungs: clear to auscultatio n Abdomen: soft and nontender Extremities: trace leg edema General Appearance: NAD Skin: normal, no rash Neurologic Exam: Intact, gait normal Neck: supple, no lymphaden opathy Oral cavity: no lesions, mucosa m oist and WNL, no erythema Peripheral pulses: normal Back: mild dorsal kyphosis Chest: normal shape and exp ansion
--- OUTSIDE RECORDS SUMMARY | 2023-10-22 08:30 | XMS_ITS ---
Author Organization [facility] Address [address] [facility] [address] [place] Campos [id number] Care Team Providers Care [place] Name Role Phone Thierry Teran Primary Care Provider Allergies No Known Allergies Results Component Value Reference Range Notes P-Comprehensive Metabolic Pa rivka (CMP) Reviewed date:10/29/2023 10:37:39 AM Interpretation:Na 134, gluc 121, bun 59, Cr 2.26, gfr 30 Performing Lab: Notes/Report: Test performed by [facility] [address] [place] [address] , [address], [place] [address] Deng Hernandez MD, Bone Char Kiln Tender CLIA: [id number] Sodium 134 135-145 mmol/L Potassium 4.5 3.5-5.3 mmol/L Chloride 98 97-108 mmol/L CO2 27 22-32 mmol/L Glucose 121 65-99 mg/dL BUN 59 8-23 mg/dL Creatinine 2.26 0.70-1.30 mg/dL Calcium 8.7 8.6-10.4 mg/dL eGFR by Creatinine 30 >59 mL/min/1.73m2 Protein 6.1 6.0-8.3 g/dL Albumin 4.0 3.5-5.3 g/dL Alkaline Phosphatase 73 40-129 IU/L ALT (SGPT) 22 <5-55 IU/L AST (SGOT) 30 <5-46 IU/L Bilirubin, Total 0.3 <0.2-1.2 mg/dL A/G Ratio 1.9 1.1-2.5 P-PSA Reviewed date:10/29/2023 10:37:39 AM Interpretation:Normal Performing Lab: Notes/Report: Test performed by [facility] [address] [place] [address] , [address], [place] [address] Deng Hernandez MD, Bone Char Kiln Tender CLIA: [id number] PSA 1.29 <4.00 ng/mL Please note this is an ultrasensitive PSA assay with a lower limit of detection of 0.014 ng/mL. This test is performed by the Tamy ECLIA methodology. Values obtained with different assay methods or kits cannot be directly compared. P-TSH Reviewed date:10/29/2023 10:37:40 AM Interpretation:Normal Performing Lab: Notes/Report: Test performed by [facility] [address] [place] [address] , [address], [place] [address] Deng Hernandez MD, Bone Char Kiln Tender CLIA: [id number] TSH 1.17 0.43-5.25 mU/L REASON FOR VISIT 4 months, Needs labs with PSA Medications Medication SIG (Take, Route, Frequency, Duration) Notes Start Date End Date Status traZODone HCl 50 MG 1 tab(s) orally once daily prn, Active Trudi-Dain - 1 tab(s) orally once a day Active Calcitriol 0.25 MCG 1 cap(s) orally once a day; Duration: 30 day(s) Active Doxazosin Mesylate 4 MG Take 1 tablet by mouth once daily; Duration: 90 Active Levothyroxine Sodium 50 MCG 1 tab(s) ora lly once a day; Duration: 30 day(s) Active Metoprolol Succinate ER 25 MG 1/2 Orally Once a day Active Nystatin-Triamcinolone 553779-6.1 UNIT/GM 1 application Externally Twice a day 02/19/2023 Active Allopurinol 100 MG 1 tab(s) orally once a day Active hydroCHLOROthiazide 25 MG 1/2 tablet in the morning Orally Once a day Active Vital Signs Blood pressure systolic 132 mm Hg 10/22/19 24 Blood pressure diastolic 80 mm Hg 024 Heart Rate 50 /min 10/22/2023 Height 70.25 in 10/22/2023 Weight 127.6 lbs 10/22/2023 BMI 18.18 kg/m2 10/22/2023 Encounters Encounter Location Date Provider Diagnosis [facility] [address] [facility] [address] [place], [place] [phone] 10/22/2023 Thierry Teran Essential hypertensi on I10 ; Acquired hypothyroidism E03.9 ; Renal insufficiency N28.9 and Prostatic hypertrophy N40.0 Assessments Encounter Date Diagnosis (ICD Code) Assessment Notes Treatment Notes Treatment Clinical Notes Section Notes 10/22/2023 Essential hypertension (ICD-10 - I10) 10/22/2023 Acquired hypothyroidism (ICD-10 - E03.9) 10/22/2023 Renal insufficiency (ICD-10 - N28.9) 10/22/2023 Prostatic hypertrophy (ICD-10 - N40.0) Plan Of Treatment Next Appt Details Follow Up: 5 months, Reason: Provider Name:Thierry Harris er, 01/29/2025 03:00:00 PM, [address] [facility] [address], [address], [place], [place], [id number], Progress Notes * GAAPITOOmarDOB:1950 (74 yo M)Acc No.[id number]:10/22/2023 Progress Notes Patient: Omar ALEXANDER Provider: Thierry Teran M.D. :1950 A ge:72 Y S ex:Male Date:10/22/2023 Address:[address] [place] [address] , [place], [id number] Subjective: * Chief Complaints: * 1 . 4 months. 2. Needs labs with PSA. * HPI: C ardiology: The patient is here for a check up on Hypertension and Renal insufficiency. Pt states he is doing good and denies any new concerns today. Pt is not fasting. Denies : Chest Pain. D enies : Short of Breath. D enies : Dizziness. D enies : Palpitations. M jesse Reproductive: Saw Dr. Fernandez (nephrology) 6 weeks ago in [place]. Last labwork I have is from June with GFR 28. * ROS: D ERMATOLOGY: no R irvin. [...] Orally Once a day , Taking Nystatin-Triamcinolone 431279-1.1 UNIT/GM Cream 1 application Externally Twice a [...] 1 tab(s) orally once daily prn, , Medication List reviewed and reconciled with the patient * Allergies: N .K.D.A. Objective: * Vitals: W t:127.6, Temp:97.8, BP:132/80, HR:50, Nurse:EMILY, Ht: 70.25, BMI:18.18. * Examination: G eneral Examination: General Appearance: N AD. H EENT: u nremarkable.?Oral cavity: n o lesions, mucosa moist and WNL, no erythema. N sayra: s upple, no lymphadenopathy. C hest: n ormal shape and expansion. H eart: R SR. L ungs: c lear to auscultation. A bdomen: soft and nontender, no organomegaly or masses. N eurologic Exam: I ntact, gait normal. S kin: n ormal, no rash. P eripheral pulses: n ormal . B ack: mild dorsal kyphosis. E xtremities: n o leg edema. G enitalia: not examined. Assessment: * Assessment: 1. E ssential hypertension - I10 (Primary) 2 . A cquired hypothyroidism - E03.9 3 . R enal insufficiency - N28.9 4 . P rostatic hypertrophy - N40.0 Plan: * Treatment: Value Reference Range A /G Ratio 1.9 1.1-2.5 - * A lbumin 4.0 3.5-5.3 - g/dL * A lkaline Phosphatase 73 40-129 - IU/L * A LT (SGPT) 22 <5-55 - IU/L * A ST (SGOT) 30 <5-46 - IU/L * B ilirubin, Total 0.3 <0.2-1.2 - mg/dL * B UN 59 H 8-23 - mg/dL * C alcium 8.7 8.6-10.4 - mg/dL * C hloride 98 97-108 - mmol/L * C O2 27 22-32 - mmol/L * C reatinine 2.26 H 0.70-1.30 - mg/dL * G lucose 121 H 65-99 - mg/dL * P otassium 4.5 3.5-5.3 - mmol/L * S odium 134 L 135-145 - mmol/L * P rotein 6.1 6.0-8.3 - g/dL * e GFR by Creatinine 30 L >59 - mL/min/1.73m2 * Maricel Ferrer 10/29/2023 10:37 :35 AM >See phone encounter 2.?Acquired hypothyroidism?LAB: P-TSH (Collection Date & Time - 10/22/2023 01:35 PM)?Normal* Value Reference Range T SH 1.17 0.43-5.25 - mU/L * Maricel Ferrer 10/29/2023 10:37 :35 AM >See phone encounter 3.?Prostatic hypertrophy?LAB: P-PSA (Collection Date & Time - 10/22/2023 01:35 PM)?Normal* Value Reference Range P SA 1.29 <4.00 - ng/mL * Maricel Ferrer 10/29/2023 10:37 :35 AM >See phone encounter * Follow Up: 5 months * Images: Billing Information: * Visit Code: 99368 Office Visit, Est Pt., Level 4. * Procedure Codes: * Electronic signature of Thierry Teran MD on 12/16/2024 at 12:25 PM EST Sign off status: Pending * Provider: Thierry Teran M.D. Date: 0 10/22/2023 Generated for Printi ng/Faxing/eTransmitting on: 1 02/16/2024 12:25 PM EST History and Physical Notes * HPI (History of Present Illness) Category Sub-Category Detail Notes Category Not es Cardiology Short of Breath Chest Pain Palpitations Dizziness Examination Category Sub-Category Detail Notes Category Not es General Examination HEENT: unremarkable Heart: RSR Lungs: clear to auscultatio n Abdomen: soft and nontender, no organomegaly or masses Extremities: no leg edema General Appearance: NAD Skin: normal, no rash Neurologic Exam: Intact, gait normal Neck: supple, no lymphaden opathy Oral cavity: no lesions, mucosa m oist and WNL, no erythema Peripheral pulses: normal Back: mild dorsal kyphosis Genitalia: not examined Chest: normal shape and exp ansion
--- OUTSIDE RECORDS SUMMARY | 2024-03-27 09:30 | XMS_ITS ---
Author Organization [facility] Address [address] [place], [place] [phone] Care Team Providers Care Ambulance Paramedic Name Role Phone Thierry Teran Primary Care [...] 1/2 Orally Once a day Active Nystatin-Triamcinolone 678959-9.1 UNIT/GM 1 application Externally Twice a day 02/19/2023 Active Allopurinol 100 MG 1 tab(s) orally once a day Active Problems Problem Type SNOMED Code ICD Code Onset Dates Problem Status W/U Status Risk Notes Problem Chronic kidney disease stage 3B (disorder) (542644656) Chronic renal failure, stage 3b (N18.32) Active confirmed Vital Signs Blood pressure systolic 120 mm Hg 03/27/19 25 Blood pressure diastolic 70 mm Hg 025 Heart Rate 58 /min 03/27/2024 Height 70.25 in 03/27/2024 Weight 137.0 lbs 03/27/2024 BMI 19.52 kg/m2 03/27/2024 Encounters Encounter Location Date Provider Diagnosis [place] [address] [facility] [address] [place] [id number] 03/27/2024 Thierry Teran Chronic renal failure, stage [...] Name:Thierry Harris er, 01/29/2025 03:00:00 PM, [address] [facility], [address], [place], [place], [phone], Progress Notes * Omar PERALTADOB:1950 (74 yo M)Acc No.[id number]:03/27/2024 Progress Notes Patient: Omar ALEXANDER Provider: Thierry Teran M.D. :1950 A ge:73 Y S ex:Male Date:03/27/2024 Address:[facility] [address], [place], [id number] Subjective: * Chief Complaints: * 1 . [...] Orally Once a day , Taking Nystatin-Triamcinolone 613343-6.1 UNIT/GM Cream 1 application Externally Twice a [...] * Images: Billing Information: * Visit Code: 11724 Office Visit, Est Pt., Level 4. * Procedure Codes: G2211 Complex e/m visit add on. 3074F SYST BP LT 130 MM HG. 3078F DIAST BP < 80 MM HG. * Electronic signature of Thierry Teran MD on 12/16/2024 at 12:24 PM EST Sign off status: Pending * Provider: Thierry Teran M.D. Date: 0 03/27/2024 Generated for Danishai bibiana/Jose Eduardo/eTransmitting on: 1 02/16/2024 12:24 PM EST History and Physical Notes * [...]
--- OUTSIDE RECORDS SUMMARY | 2024-08-28 09:30 | XMS_ITS ---
Author Organization [facility] Address [address] [facility] 36 [facility] [address] [place], [place] [address] Care Team Providers Care Music [employer] Internship Name Role Phone Thierry Teran Primary Care Provider Allergies No Known Allergies Results Component Value Reference Range Notes P-Comprehensive Metabolic Pa rivka (CMP) Reviewed date:09/12/2024 10:55:32 AM Interpretation:gluc 121, bun 52, Cr 2.23, gfr 31 Performing Lab: Notes/Report: Test performed by [facility], [address] , [address], [place] [address] Deng Hernandez MD, Long Winder Tender CLIA: [id number] Sodium 136 135-145 mmol/L Potassium 4.4 3.5-5.3 [...] 1/2 Orally Once a day Active Nystatin-Triamcinolone 062191-9.1 UNIT/GM 1 application Externally Twice a day 02/19/2023 Active Problems Problem Type SNOMED Code ICD Code Onset Dates Problem Status W/U Status Risk Notes Problem Hypertensive heart AND chronic kidney disease with congestive heart failure ([id number]) Hypertensive heart and chronic kidney disease with heart failure and stage 1 through stage 4 chronic kidney disease, or unspecified chronic kidney disease (I13.0) Active confirmed Problem Cardiomyopathy (21473952) Cardiomyopathy, unspecified type (I42.9) Active confirmed Problem Chronic kidney disease stage 4 (214481579) Chronic kidney disease, stage 4 (severe) (N18.4) Active confirmed Vital Signs Blood pressure systolic 134 mm Hg 08/29/19 25 Blood pressure diastolic 72 mm Hg 025 Heart Rate 51 /min 08/28/2024 Height 70.25 in 08/28/2024 Weight 129.0 lbs 08/28/2024 BMI 18.38 kg/m2 08/28/2024 Encounters Encounter Location Date Provider Diagnosis [facility] [address], [place] [phone] 08/28/2024 Thierry Teran Essential hypertensi on I10 [...] 01/29/2025 03:00:00 PM, [address] [facility], [address] , [place], [place], [id number], Progress Notes * Omar PERALTADOB:1950 (74 yo M)Acc No.[id number]:08/28/2024 Progress Notes Patient: Omar ALEXANDER Provider: Thierry Teran M.D. :1950 A ge:73 Y S ex:Male Date:08/28/2024 Address:[address], [id number] Subjective: * Chief Complaints: * 1 . [...] History: H ypothyroidism, Sleep problems, Hyperlipidemia, Dr. Jeo - Urologist, Prevnar, Pneumovax, April 14 and [...] Orally Once a day , Taking Nystatin-Triamcinolone 349866-8.1 UNIT/GM Cream 1 application Externally Twice a [...] * Images: Billing Information: * Visit Code: 61977 Office Visit, Est Pt., Level 4. * [...] 08/28/2024 Generated for Sunil mccarty/Jose Eduardo/eTransmitting on: 02/16/2024 12:24 PM EST History and Physical [...]
--- OUTSIDE RECORDS SUMMARY | 2024-12-15 11:45 | XMS_ITS ---
Author Organization [facility] Address [address] [place], [place] [id number] Care Team Providers Care Case Finishing Machine Adjuster Name Role Phone Thierry Teran Primary Care Provider Omar Colvin Unavailable [phone] Allergies No Known Allergies Reason For Referral Reason Patient needs to be seen this week. Diagnosis 1 Dislocation of left thumb, initial encounter (S63.105A) [facility] Referring Provider First Name Omar Referring Provider Last Name Vinicius Referring Provider Speciality Family Pra ctice Referred Provider Irvin Butler Referred Provider Specialty Orthopedic S urgery General Notes Autumn Cowan 2024 09:08:15 AM > patient can be seen today at 1:15pm; lvm for patient to call me back to ensure he got the message, Autumn Cowan 12/16/2024 10:04:33 AM > patient informed Referral Priority Routine REASON FOR VISIT ER f/u Medications Medication SIG (Take, Route, Frequency, Duration) Notes Start Date End Date Status traZODone HCl 50 MG 1 tablet at bedtime as needed Orally Once a day; Duration: 90 days Active Calcitriol 0.25 MCG 1 cap(s) orally [...] the morning Orally Once a day Active Nystatin-Triamcinolone 190832-2.1 UNIT/GM 1 application Externally Twice a day 02/19/2023 Active Metoprolol Succinate ER 25 MG 1/2 Orally Once a day Active Allopurinol 100 MG 1 tab(s) orally once a day Active HYDROcodone-Acetaminophen 5-325 MG 1 tablet as needed Orally every 6 hrs Active Cephalexin 500 MG 1 tablet Orally ever y 6 hrs Active Vital Signs Blood pressure systolic 134 mm Hg 12/16/19 25 Blood pressure diastolic 76 mm Hg 025 Heart Rate 71 /min 12/15/2024 Height 70.25 in 12/15/2024 Weight 129 lbs 12/15/2024 BMI 18.38 kg/m2 12/15/2024 Encounters Encounter Location Date Provider Diagnosis [facility] [address] [facility] 36 [facility] [address] [place] [id number] 12/15/2024 Omar Colvin Visit for wound chec k Z51.89 and Dislocation of left thumb, initial encounter S63.105A Assessments Encounter Date Diagnosis (ICD Code) Assessment Notes Treatment Notes Treatment Clinical Notes Section Notes 12/15/2024 Visit for wound check (ICD-10 - Z51.89) 12/15/2024 Dislocation of left thumb, initial encounter (ICD-10 - S63.105A) Plan Of Treatment Referrals Referral Date Details 12/15/2024 12/15/2024, Patient needs to be seen this week., Irvin Butler Next Appt Details Provider Name:Thierry Harris er, 01/29/2025 03:00:00 PM, [address] [facility] 36 [facility], [address], [place], [id number], Progress Notes * Omar PERALTADOB:1950 (74 yo M)Acc No.[id number]:12/15/2024 Progress Notes Patient: Omar ALEXANDER Provider: Uday Colvin M.D. :1950 A ge:74 Y S ex:Male Date:12/15/2024 Address:[address], [place], [id number] Pcp:Thierry Teran Subjective: * Chief Complaints: * 1 . ER f/u. * HPI: H PI: 74 year old male presents with c/o Here for follow up on: P t here for ER follow up from [facility] in [facility]. Pt was out of town and dislocated his thumb and had to get 4 stitches. Pt states he needs a referral to orthopedics. * Medical History: H ypothyroidism, Sleep problems, [...] . * Social History: C URRENT TOBACCO USE: No S moking Status: Patient does NOT smoke. C affeine: yes, frequency:coffee, pop and tea, QD. Home smoke detector use: yes. Marital Status: . Alcohol: No. * Medications: T aking Cephalexin 500 MG Tablet 1 tablet Orally every 6 hrs , Taking HYDROcodone-Acetaminophen 5-325 MG Tablet 1 tablet as needed Orally every 6 hrs , Taking hydroCHLOROthiazide 25 MG Tablet 1/2 tablet in the morning Orally Once a day , Taking Nystatin-Triamcinolone 092139-1.1 UNIT/GM Cream 1 application Externally Twice a [...] Taking traZODone HCl 50 MG Tablet 1 tablet at bedtime as needed Orally Once a day , Medication List reviewed and reconciled with the patient * Allergies: N .K.D.A. Objective: * Vitals: W t: 129, Temp: 98.0, BP: 134/76, HR: 71, Nurse: SF, Ht: 70.25, BMI:18.38. Assessment: * Assessment: 1. V isit for wound check - Z51.89 (Primary) 2 . D islocation of left thumb, initial encounter - S63.105A Plan: * Treatment: * Images: Billing Information: * Visit Code: * Procedure Codes: * Electronic signature of Cheyanne Colvin MD on 12/16/2024 at 12:25 PM EST Sign off status: Pending * Provider: Uday Colvin M.D. Date: 02/15/2024 Generated for Sunil mccarty/Jose Eduardo/Maurisioitting on: 02/16/2024 12:25 PM EST History and Physical Notes * HPI (History of Present Illness) Category Sub-Category Detail Notes Category Not es HPI Here for follow up on: Pt here f or ER follow up from [facility] in [facility]. Pt was out of town and dislocated his thumb and had to get 4 stitches. Pt states he needs a referral to orthopedics Consultation Request Notes Referral Date Referring Provider Referred Provider Not es 12/15/2024 Omar Colvin Jason Patient need s to be seen this week.
--- NOTE | 2024-12-16 12:25 | XR_ITS ---
FINAL REPORT CLINICAL HISTORY: left thumb pain FINDINGS: LEFT HAND Three views demonstrate no acute fracture or dislocation. The visualized joint spaces are normally aligned. The soft tissues are unremarkable. IMPRESSION: No acute process. Reviewed, Interpreted and Dictated by Paige Lloyd MD Transcribed by Bhargavi Delong Authenticated and [facility]
--- OUTSIDE RECORDS SUMMARY | 2024-12-16 12:25 | XMS_ITS | Data Portability ---
Author Organization [facility] Address [address] [place] [address] Assessment No assessment recorded. Plan of Treatment Reminders Order Date Submit Date Provider Last Modified By Organization Details Last Modified Time Details Appointments OV EST 15 2025 10:30A Debbie Leon Jr, MD Not available Not available Not available Lab PSA, serum or plasma 2024 025 [email or web address] [facility] (Laboratory), [address] [place], [address], 06/12/2024 15:52:35 PSA, serum or plasma 2023 024 [facility] (Laboratory), [address] [place], [address], 06/06/2023 18:13:56 PSA, serum or plasma 2022 023 JACQUELINE Not available 06/07/2022 16:30:42 Referral None recorded. Procedures None recorded. Surgeries None recorded. Imaging None recorded. Medication Orders doxazosin 4 mg tablet 2024 025 [facility] [place], [address], 06/04/2024 11:45:52 doxazosin 4 mg tablet 2023 024 [facility] [address] [place], [address], 06/06/2023 11:00:20 Patient TargetsNo targets recorded. Patient InstructionsNo instructions recorded. Reason for Referral None Reported. Results Created Date Observation Date Name Description Value Unit Range Abnormal Flag Note LastModifiedBy Organization Detail LastModifiedTime 06/08/19 23 06/07/2022 PROST ATE SPECI FIC AG (PSA) prostate specific Ag (PSA) 3.22 NG/mL 0.0-4. 0 Not Available [facility] (Lab Registration) [address] [place], [address], 06/07/2022 16:30:41 06/08/19 23 06/07/2022 PROST ATE SPECI FIC AG (PSA) note Julio Cesar s other johns noted testi ng perfo rmed at: [facility] [address] [place], [place] [address] [phone] Graeme jolley MD CLIA: [id number] Not Available [facility] (Lab Registration) [address] [place], [address], 06/07/2022 16:30:41 06/06/19 24 06/06/2023 PROST ATE SPECI FIC AG (PSA) prostate specific Ag (PSA) 1.88 NG/mL 0.0-4. 0 Not Available [facility] (Lab Registration) [address] [place], [address], 06/06/2023 18:13:55 06/06/19 24 06/06/2023 PROST ATE SPECI FIC AG (PSA) note Julio Cesar s other johns noted testi ng perfo rmed at: [facility] [address] [place], [place] [address] [phone] Graeme jolley MD CLIA: [id number] Not Available [facility] (Lab Registration) [address] [place], [address], 06/06/2023 18:13:55 06/05/19 25 06/04/2024 PSA TOTAL + %FREE note Julio Cesar s other johns noted testi ng perfo rmed at: [facility] [address] [place] [address] [phone] Graeme jolley MD CLIA: [id number] Not Available [facility] (Lab Registration) [address], [place], [address], 06/05/2024 08:17:03 06/05/19 25 06/05/2024 PSA TOTAL [...] t be inter prete d as absol marina evide nce of the prese nce or absen ce of jorge escobedo se. SENT TO REFER ENCE LAB Not Available [facility] (Lab Registration) [address], [place], [address], 06/05/2024 08:17:03 06/05/19 25 06/05/2024 PSA TOTAL + %FREE PSA, free 0.67 NG/mL n/a Tamy ECLIA metho dolog y. SENT TO REFER ENCE LAB Not Available [facility] (Lab Registration) [address] [place], [address], 06/05/2024 08:17:03 06/05/19 25 06/05/2024 PSA TOTAL [...] al did not make speci fic recom mendberry gray the use of perce nt free PSA for any other popul ation of men. Perfo rmed at: - [facility] [place] [facility] [address] [facility], [place] [address] Lab Direc tor: Jerry bull PhD, Phone : [phone] SENT TO REFER ENCE LAB Not Available [facility] (Lab Registration) [address] , [place], [address], 06/05/2024 08:17:03 Result Notes None recorded. Medical [...] Updated DateTime 06/04/2024 177.8 cm 20.1 kg/m2 00874.93 g 98.1 [degF] Navdeep Zactonia [facility] & [place] 06/04/2024 09:43:53 Date Recorded Body height Body mass index (BMI) Body weight Body temperature Provider Name and Address Organization Details Last Updated DateTime 06/06/2023 177.8 cm 20.1 kg/m2 76700.93 g 97.9 [degF] Ansley Dolan [facility] [place] 06/06/2023 09:42:50 Date Recorded Body height Body mass index (BMI) Body weight Body temperature Provider Name and Address Organization Details Last Updated DateTime 06/07/2022 177.8 cm 20.1 kg/m2 19190.93 g 97.7 [degF] Rosario Fritz [facility] [place] 06/07/2022 09:55:57 Social History None recorded. Functional Status None recorded. Mental Status None recorded. Family History Relationship Description Onset Age of this Age Resolved Age Notes LastModified by Organization Details LastModified Time Father No current problems or disability [email or web address] Not available 05/14 09:56:09 Mother No current problems or disability [email or web address] Not available 05/14 09:56:09 Medical History No medical history recorded. Past Encounters Encounter ID Performer Location Encounter Start Date Encounter Closed Date Diagnosis/Indication Diagnosis SNOMED-CT Code Diagnosis ICD10 Code Diagnosis IMO Codes Diagnosis Note [id number] Larry Leon Jr, MD [facility] [address] [address] 06/07/2022 09:25:18 06/07/2022 11:06:40 Benign prostatic hyperplasia 384631943 N40.0 Patient with history of BPH. He continues on doxazosin 4 mg and is voiding well. Prescripti on was refilled today. Screening for malignant neoplasm of prostate 155518403 Z12.5 digital rectal examinatio n today is benign. We will repeat a PSA and if stable continue yearly monitoring . Chronic ki dney disease 474244051 N18.9 patient's most recent creatinine that I am aware of was 2.1. He continues to see Nephrology . [id number] [facility] Jr, MD [facility] [address] [address] 06/06/2023 09:41:38 06/06/2023 10:14:42 Screening for malignant neoplasm of prostate 627033341 Z12.5 digital rectal examinatio n today is benign. last year's PSA was 3.2 which was higher previous PSAs in 1999 and 2019. Benign pro static hyperplasia with outflow obstruction 674712380 N40.1 patient with history of BPH. He continues on doxazosin 4 mg with good results. Chronic ki dney disease 534408069 N18.9 patient's most recent creatinine that I am aware of was 2.1. He continues to see Nephrology . [id number] Larry Leon Jr, MD [facility] [address] [address] 06/04/2024 09:15:17 06/04/2024 10:03:36 Benign prostatic hyperplasia with outflow obstruction 447080697 N40.1 N13.8 [id number] patient with history of BPH. He continues on doxazosin 4 mg with good results. Screening for malignant neoplasm of prostate 819946011 Z12.5 [id number] Prostate examinatio n today within normal limits. [...] Guarantor Name 06/04/2024 1 [place]IC[place] Omar Sherif Peralta [id number] Omar Peralta 06/04/2024 2 [employer] (MEDICARE SUPPLEMENT) Omar Peralta [id number] Omar Peralta Notes Date Note Type Note Provider Name and Address Organization Details Recorded Time 06/07/2022 text/html Patient is a 71-year-old white male with a history of BPH. I previously saw the patient at [facility] any transfers care to [facility] today. Patient continues on doxazosin 4 [...] 2019 was 1.1. Larry Leon Jr, MD [address] [place] [address], [address], [place], [address], [place] - [place] - [place] & [place] 06/12/2022 16:39:42 06/06/2023 text/html patient is a [...] were 1.3 in 2020 and 1.1 In 2019. Larry Leon Jr, MD [address] [place] [address], [address], [address], [facility] - [facility] 06/06/2023 11:00:54 06/04/2024 text/html ROS as noted in the HPI Patient is a 73-year-old white male with history of BPH. He returns today follow-up. States he continues to void well on doxazosin 4 mg.Patient's PSA last year was 1.8.Patient with history of chronic kidney disease and he states that his function is better per his urologist md. Larry Leon Jr, MD [address] [place] [address], [address], [place], [address], [place] - [facility] & [place] 06/04/2024 14:10:17
--- OUTSIDE RECORDS SUMMARY | 2024-12-16 12:25 | XMS_ITS | Patient Health Record ---
Author Organization [facility] [address] [facility] [address] [facility] [address] [place] [id number] Care Team Providers Care Raisin Separator Operator Name Role Phone Thierry Teran Primary Care Provider Omar Colvin Unavailable [phone] Allergies No Known Allergies Results Component Value Reference Range Notes P-Comprehensive Metabolic Pa rivka (CMP) Reviewed date:09/12/2024 10:55:32 AM Interpretation:gluc 121, bun 52, Cr 2.23, gfr 31 Performing Lab: Notes/Report: Test performed by [facility] [address] , [address], [place] [address] Deng Hernandez MD, Hand Stapler CLIA: [id number] Sodium 136 135-145 mmol/L Potassium 4.4 3.5-5.3 [...] 0.3 <0.2-1.2 mg/dL A/G Ratio 1.7 1.1-2.5 Reason For Referral Reason Patient needs to be seen this week. Diagnosis 1 Dislocation of left thumb, initial encounter (S63.105A) Referral Organization [facility] Referring Provider First Name Omar Referring Provider Last Name Vinicius Referring Provider Speciality Family Pra ctice Referred Provider Irvin Butler Referred Provider Specialty Orthopedic S urgery General Notes Camryn Autumn 2024 09:08:15 AM > patient can be seen today at 1:15pm; lvm for patient to call me back to ensure he got the message, Camryn Autumn 12/16/2024 10:04:33 AM > patient informed Referral Priority Routine Medications Medication SIG (Take, Route, Frequency, Duration) Notes Start Date End Date Status hydroCHLOROthiazide 25 MG 1/2 tablet in the morning Orally Once a day Active Nystatin-Triamcinolone 797815-5.1 UNIT/GM 1 application Externally Twice a day 02/19/2023 Active Metoprolol Succinate ER 25 MG 1/2 Orally Once a day Active Allopurinol 100 MG 1 tab(s) orally once a day Active Cephalexin 500 MG 1 tablet Orally ever y 6 hrs Active HYDROcodone-Acetaminophen 5-325 MG 1 tablet as needed Orally every 6 hrs Active traZODone HCl 50 MG 1 tablet at [...] by mouth once daily; Duration: 90 Active Immunizations Vaccine Route Administration Date Status Comme nts xFlu shot-36 months and older Unknown 2015 Administered xFlu shot- 6months-36 months of hmc-VCYG-ULQG-trivalent Unknown 2015 Administered xAdministration of injection Unknown 08/31/2016 Administered Prevnar (PCV13) IM Intramuscular 04/08/2018 Administered PNEUMOVAX 23 VACCINE IM Intramuscular 04/07/2019 Administe red Fluzone PF Quad (6-35 months) Unknown 02/04/2021 Administered Fluzone High Dose (65yr and older) Unknown 11/30/2017 Administered Fluzone High Dose (65yr and older) IM Intramuscular 12/11/2018 Administered Fluzone High Dose (65yr and older) IM Intramuscular 11/03/2019 Administered Fluzone High Dose (65yr and older) IM Intramuscular 01/09/2022 Administered Fluzone High Dose (65yr and older) IM Intramuscular 02/19/2023 Administered COVID 19 Moderna Unknown 05/12/2020 Administered COVID 19 Moderna Unknown 12/15/2020 Administered Problems Problem Type SNOMED Code ICD Code Onset Dates Problem Status W/U Status Risk Notes Problem Essential hypertension (28900419) Essential hypertension (I10) Active confirmed Problem Tinea corporis (44773257) Tinea corporis (B35.4) Active confirmed Problem Pure hypercholesterolemia (017696244) Pure hypercholesterolemia (E78.0) Active confirmed Problem Primary insomnia (7592859) Primary insomnia (F51.01) Active confirmed Problem Hypertensive heart AND chronic kidney disease with congestive heart failure (65370818955788) Hypertensive heart and chronic kidney disease with heart failure and stage 1 through stage 4 chronic kidney disease, or unspecified chronic kidney disease (I13.0) Active confirmed Problem Chronic kidney disease stage 4 (308366866) Chronic kidney disease, stage 4 (severe) (N18.4) Active confirmed Problem Vasovagal syncope (964063200) Vasovagal syncope (R55) Active confirmed Problem Acquired hypothyroidism (799481491) Acquired hypothyroidism (E03.9) Active confirmed Problem Renal insufficiency (284683489) Renal insufficiency (N28.9) Active confirmed Problem Cardiac dysrhythmia (719385311) Cardiac dysrhythmia, unspecified (I49.9) Active confirmed Problem Prostatic hypertroph y (300342023) Prostatic hypertrophy (N40.0) Active confirmed Problem Seasonal allergic rhinitis (312732454) Seasonal allergic rhinitis, unspecified allergic rhinitis trigger (J30.2) Active confirmed Problem Prostate nodule (833281306620145) Prostate nodule (N40.2) Active confirmed Problem Cardiomyopathy (30353852) Cardiomyopathy, unspecified type (I42.9) Active confirmed Problem Pain due to varicose veins of lower extremity (307501843) 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) Active confirmed Problem Villous adenoma of colon (374668484) Villous adenoma of colon (D37.4) Active confirmed Problem Cardiomyopathy (72192028) Nonischemic cardiomyopathy (I42.8) Active confirmed Problem Chronic kidney disease stage 3B (disorder) (116650032) Chronic renal failure, stage 3b (N18.32) Active confirmed Vital Signs Heart Rate 71 /min 12/15/2024 Blood pressure diastolic 76 mm Hg 12/15/2024 Height 70.25 in 12/15/2024 Blood pressure systolic 134 mm Hg 12/15/2024 Weight 129 lbs 12/15/2024 BMI 18.38 kg/m2 12/15/2024 Encounters Encounter Location Date Provider Diagnosis [facility] [address] [facility] [address] [place] [id number] 03/27/2024 Thierry Teran Chronic renal failur e, stage 3b N18.32 [facility] [address] [place] [id number] 08/28/2024 Thierry Teran Essential hypertensi on I10 [...] mass index (BMI) less than 19 Z68.1 [facility] [address] [facility] [address] [place] [id number] 12/15/2024 Omar Vinicius Visit for wound chec k Z51.89 and Dislocation of left thumb, initial encounter S63.105A [facility] [address] [facility] [address] [place] [id number] 09/09/2024 Thierry Teran Colon cancer screeni ng Z12.11 [facility] [address] [place] [id number] 09/12/2024 Thierry Teran [facility] [address] [place] [id number] 12/15/2024 Thierry Teran Assessments Encounter Date Diagnosis (ICD Code) Assessment Notes Treatment Notes Treatment Clinical Notes Section Notes 03/27/2024 Chronic renal failure, stage 3b (ICD-10 - N18.32) continue current therapy 08/28/2024 Essential hypertension (ICD-10 - I10) 08/28/2024 Chronic renal failure, stage 3b (ICD-10 - N18.32) 09/09/2024 Colon cancer screening (ICD-10 - Z12.11) 12/15/2024 Visit for wound check (ICD-10 - Z51.89) 12/15/2024 Dislocation of left thumb, initial encounter (ICD-10 - S63.105A) 08/28/2024 Primary insomnia (ICD-10 - F51.01) 08/28/2024 [...] 19 (ICD-10 - Z68.1) Plan Of Treatment Pending Test Test Name Order Date colonoscopy 09/09/2024 Next Appt Details Provider Name:Thierry Goodwintanner er, 01/29/2025 03:00:00 PM, [address] [facility], [address], [place], [place], [phone], Insurance Providers Payer Name Payer Address Payer Phone Subscriber Number Group Number Insured Name Patient Relationship to Insured Coverage Start Date Coverage End Date MEDICARE PART B [address] [address] [place] [address] [phone] [id number] Omar Peralta Self - patient is the insured [facility] [employer] [address] [place] [id number] Omar Peralta Self - patient is the insured Medications Administered Medication Instructions Date of Administration Dosage Notes Depo- Medrol 40 mg/ml 10/19/2015 1 mL Medical (General) History Medical History History ICD Code Hypothyroidism sleep problems hyperlipidemia Dr. Joe - Urologist Prevnar Pneumovax April 14 and Covid 19 Moderna Surgical History Surgery Date(Month/Year) testicular cancer ? tonsillectomy, as a child Americo hernandez, villous adenoma 09/10/14 colonoscopy, Dr. Celestin 09/2017 colonoscopy, Dr. Celestin, one polyp 11/05/19 21 Hospitalization History Reason Date(Month/Year) see above
--- OUTSIDE RECORDS SUMMARY | 2024-12-16 12:26 | XMS_ITS | Clinical Summary ---
Author Organization Healthcare Address [address] [place] [address] Care Team Providers Care Staff Electronic Warfare Officer Name Role Phone Charan Teran MD Primary Care Provider [phone] Family History Medical History Relation Name Comments [...] of Treatment Not on file Care Teams Staff Electronic Warfare Officer Relationship Specialty Start Date End Date Charan Teran MD [address] [place] [address] PCP - General 06/25/20
== END 2024-12-16 23:59 | disposition home or self-care (01) ==
LOC: RAD 12:21
PROVIDERS: PCP Family Medicine; Visit Provider Physician Assistant
DX: M79.642 Pain in left hand (principal)
CPT/HCPCS: 73130

== ENCOUNTER 2025-01-20 07:38 | Outpatient (CLI) | payer MEDICARE, SELFPAY ==
--- OUTSIDE RECORDS SUMMARY | 2023-10-22 08:30 | XMS_ITS ---
Author Organization [facility] Address [address] [facility] [address] [facility] [address] [place] [id number] Care Team Providers Care Metal Building Assembler Name Role Phone Thierry Teran Primary Care Provider Allergies No Known Allergies Results Component Value Reference Range Notes P-Comprehensive Metabolic Pa rivka (CMP) Reviewed date:10/29/2023 10:37:39 AM Interpretation:Na 134, gluc 121, bun 59, Cr 2.26, gfr 30 Performing Lab: Notes/Report: Test performed by [facility] [address] [place] [address] , [address], [place] [address] Deng Hernandez MD, Optician Apprentice Dispensing CLIA: [id number] Sodium 134 135-145 mmol/L Potassium 4.5 3.5-5.3 [...] Interpretation:Normal Performing Lab: Notes/Report: Test performed by [facility] [address] [place] [address] , [address], [place] [address] Deng Hernandez MD, Optician Apprentice Dispensing CLIA: [id number] PSA 1.29 <4.00 ng/mL Please note this is an ultrasensitive PSA assay with a lower limit of detection of 0.014 ng/mL. This test is performed by the Tamy ECLIA methodology. Values obtained with different assay methods or kits cannot be directly compared. P-TSH Reviewed date:10/29/2023 10:37:40 AM Interpretation:Normal Performing Lab: Notes/Report: Test performed by [facility] [address] [place] [address] , [address], [place] [address] Deng Hernandez MD, Optician Apprentice Dispensing CLIA: [id number] TSH 1.17 0.43-5.25 mU/L REASON FOR VISIT [...] 1/2 Orally Once a day Active Nystatin-Triamcinolone 337974-4.1 UNIT/GM 1 application Externally Twice a day 02/19/2023 Active Allopurinol 100 MG 1 tab(s) orally once a day Active hydroCHLOROthiazide 25 MG 1/2 tablet in the morning Orally Once a day Active Vital Signs Weight 127.6 lbs 10/22/2023 Blood pressure systolic 132 mm Hg 10/22/19 24 Blood pressure diastolic 80 mm Hg 024 Heart Rate 50 /min 10/22/2023 Height 70.25 in 10/22/2023 BMI 18.18 kg/m2 10/22/2023 Encounters Encounter Location Date Provider Diagnosis [facility] [address] [facility] [address] [place], [place] [id number] 10/22/2023 Thierry Teran Essential hypertensi on I10 [...] Harris er, 01/29/2025 03:00:00 PM, [address] [facility] [address], [address], [place], [id number], Progress Notes * AGAPITOOmarDOB:1950 (74 yo M)Acc No.[id number]:10/22/2023 Progress Notes Patient: Omar ALEXANDER Provider: Thierry Teran M.D. :1950 A ge:72 Y S ex:Male Date:10/22/2023 Address:[address] [place] [address] , [place], [id number] Subjective: * Chief Complaints: * 1 . [...] Dr. Fernandez (nephrology) 6 weeks ago in [place]. Last labwork I have is from June [...] Orally Once a day , Taking Nystatin-Triamcinolone 152891-3.1 UNIT/GM Cream 1 application Externally Twice a [...] * Images: Billing Information: * Visit Code: 08538 Office Visit, Est Pt., Level 4. * Procedure Codes: * Electronic signature of Thierry Teran MD on 01/20/2025 at 07:44 AM EST Sign off status: Pending * Provider: Thierry Teran M.D. Date: 0 10/22/2023 Generated for Printi ng/Faxing/eTransmitting on: 1 03/23/2024 07:44 AM EST History and Physical Notes * HPI [...]
--- OUTSIDE RECORDS SUMMARY | 2024-03-27 09:30 | XMS_ITS ---
Author Organization [place] Address [address] [place], [place] [id number] Care Team Providers Care Guide Foreign Tour Name Role Phone Thierry Teran Primary Care Provider Allergies No Known Allergies REASON FOR VISIT 5 month f/u Medications Medication SIG (Take, Route, Frequency, Duration) Notes Start Date End Date Status Calcitriol 0.25 MCG 1 cap(s) orally once a day; Duration: 30 day(s) Active Levothyroxine Sodium 50 MCG 1 tab(s) ora lly once a day; Duration: 30 day(s) Active Trudi-Dain - 1 tab(s) orally once a day Active traZODone HCl 50 MG 1 tab(s) orally once daily prn, Active Doxazosin Mesylate 4 MG Take 1 tablet by mouth once daily; Duration: 90 Active hydroCHLOROthiazide 25 MG 1/2 tablet in the morning Orally Once a day Active Metoprolol Succinate ER 25 MG 1/2 Orally Once a day Active Nystatin-Triamcinolone 993862-8.1 UNIT/GM 1 application Externally Twice a day 02/19/2023 Active Allopurinol 100 MG 1 tab(s) orally once a day Active Problems Problem Type SNOMED Code ICD Code Onset Dates Problem Status W/U Status Risk Notes Problem Chronic kidney disease stage 3B (disorder) (403204507) Chronic renal failure, stage 3b (N18.32) Active confirmed Vital Signs Weight 137.0 lbs 03/27/2024 Blood pressure systolic 120 mm Hg 03/27/19 25 Blood pressure diastolic 70 mm Hg 025 Heart Rate 58 /min 03/27/2024 Height 70.25 in 03/27/2024 BMI 19.52 kg/m2 03/27/2024 Encounters Encounter Location Date Provider Diagnosis [place] [address] [facility] [address] [place] [id number] 03/27/2024 Thierry Teran Chronic renal failure, stage 3b N18.32 Assessments Encounter Date Diagnosis (ICD Code) Assessment Notes Treatment Notes Treatment Clinical Notes Section Notes 03/27/2024 Chronic renal failure, stage 3b (ICD-10 - N18.32) continue current therapy Plan Of Treatment Treatment Notes Assessment Notes Chronic renal failure, stage 3b continue current therapy Next Appt Details Follow Up: 5 months, Reason: Provider Name:Thierry Harris er, 01/29/2025 03:00:00 PM, [address] [facility], [address], [place], [place], [id number], Progress Notes * Omar PERALTADOB:1950 (74 yo M)Acc No.[id number]:03/27/2024 Progress Notes Patient: Omar ALEXANDER Provider: Thierry Teran M.D. :1950 A ge:73 Y S ex:Male Date:03/27/2024 Address:[facility] [address] [place], [place], [id number] Subjective: * Chief Complaints: * 1 . 5 month f/u. * HPI: C ardiology: The pt is here today for a check up on Hypertension and renal insufficiency. Pt states he saw Nephrology Butch, Nephrology, and was told his renal function was doing better with creatinine 2.1 and GFR of 38. Denies : Chest Pain. 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 Celestin 09/2017, [...] Orally Once a day , Taking Nystatin-Triamcinolone 450015-8.1 UNIT/GM Cream 1 application Externally Twice a [...] Allergies: N .K.D.A. Objective: * Vitals: W t:137.0, Temp:98.1, BP:120/70, HR:58, Nurse:EMILY, Ht: 70.25, BMI:19.52. * Examination: G eneral Examination: General Appearance: N AD. H EENT: u nremarkable.?Oral cavity: n o lesions, mucosa moist and WNL, no erythema. N sayra: s upple, no lymphadenopathy. C hest: n ormal shape and expansion. H eart: s inus bradycardia, S4. Lungs: c lear to auscultation. A bdomen: soft and nontender, no organomegaly or masses. N eurologic Exam: I ntact, gait normal. S kin: n ormal, no rash. P eripheral pulses: n ormal . B ack: mild dorsal kyphosis. E xtremities: n o leg edema. Genitalia: not examined. Assessment: * Assessment: 1. C hronic renal failure, stage 3b - N18.32 (Primary) Plan: * Treatment: * Procedure Codes: G 2211 Complex e/m visit add on, 3074F SYST BP LT 130 MM HG, 3078F DIAST BP < 80 MM HG * Follow Up: 5 months * Images: Billing Information: * Visit Code: 44612 Office Visit, Est Pt., Level 4. * Procedure Codes: G2211 Complex e/m visit add on. 3074F SYST BP LT 130 MM HG. 3078F DIAST BP < 80 MM HG. * Electronic signature of Thierry Teran MD on 01/20/2025 at 07:44 AM EST Sign off status: Pending * Provider: Thierry Teran M.D. Date: 0 03/27/2024 Generated for Danishai bibiana/Jose Eduardo/eTransmitting on: 1 03/23/2024 07:44 AM EST History and Physical Notes * HPI (History of Present Illness) Category Sub-Category Detail Notes Category Not es Cardiology Short of Breath Chest Pain Palpitations Dizziness Examination Category Sub-Category Detail Notes Category Not es General Examination HEENT: unremarkable Heart: sinus bradycardia, S 4 Lungs: clear to auscultatio n Abdomen: soft [...]
--- OUTSIDE RECORDS SUMMARY | 2024-08-28 09:30 | XMS_ITS ---
Author Organization [facility] Address [address] [facility] [address] [facility] [address] [place], [place] [id number] Care Team Providers Care Account Manager [employer] Name Role Phone Thierry Teran Primary Care Provider Allergies No Known Allergies Results Component Value Reference Range Notes P-Comprehensive Metabolic Pa rivka (CMP) Reviewed date:09/12/2024 10:55:32 AM Interpretation:gluc 121, bun 52, Cr 2.23, gfr 31 Performing Lab: Notes/Report: Test performed by [facility], [address] , [address], [place] [address] Deng Hernandez MD, Hvac Sheet Metal Installer CLIA: [id number] Sodium 136 135-145 mmol/L Potassium 4.4 3.5-5.3 mmol/L Chloride 100 97-108 mmol/L CO2 26 20-32 mmol/L Glucose 121 65-99 mg/dL BUN 52 8-23 mg/dL Creatinine 2.23 0.70-1.30 mg/dL Calcium 8.7 8.6-10.4 mg/dL eGFR by Creatinine 31 >59 mL/min/1.73m2 Protein 6.4 6.0-8.3 g/dL Albumin 4.0 3.5-5.3 g/dL Alkaline Phosphatase 77 40-129 IU/L ALT (SGPT) 23 <5-55 IU/L AST (SGOT) 33 <5-46 IU/L Bilirubin, Total 0.3 <0.2-1.2 mg/dL A/G Ratio 1.7 1.1-2.5 REASON FOR VISIT 5 month f/u Medications Medication SIG (Take, Route, Frequency, Duration) Notes Start Date End Date Status Doxazosin Mesylate 4 MG Take 1 tablet by mouth once daily; Duration: 90 Active Calcitriol 0.25 MCG 1 cap(s) orally once a day; Duration: 30 day(s) Active Allopurinol 100 MG 1 tab(s) orally once a day Active Levothyroxine Sodium 50 MCG 1 tab(s) ora lly once a day; Duration: 30 day(s) Active Trudi-Dain - 1 tab(s) orally once a day Active traZODone HCl 50 MG 1 tab bedtime; Duration: 90 days Active hydroCHLOROthiazide 25 MG 1/2 tablet in the morning Orally Once a day Active Metoprolol Succinate ER 25 MG 1/2 Orally Once a day Active Nystatin-Triamcinolone 822665-7.1 UNIT/GM 1 application Externally Twice a day 02/19/2023 Active Problems Problem Type SNOMED Code ICD Code Onset Dates Problem Status W/U Status Risk Notes Problem Hypertensive heart AND chronic kidney disease with congestive heart failure (45761229313960) Hypertensive heart and chronic kidney disease with heart failure and stage 1 through stage 4 chronic kidney disease, or unspecified chronic kidney disease (I13.0) Active confirmed Problem Cardiomyopathy (04334735) Cardiomyopathy, unspecified type (I42.9) Active confirmed Problem Chronic kidney disease stage 4 (898453950) Chronic kidney disease, stage 4 (severe) (N18.4) Active confirmed Vital Signs Weight 129.0 lbs 08/28/2024 Blood pressure systolic 134 mm Hg 08/29/19 25 Blood pressure diastolic 72 mm Hg 025 Heart Rate 51 /min 08/28/2024 Height 70.25 in 08/28/2024 BMI 18.38 kg/m2 08/28/2024 Encounters Encounter Location Date Provider Diagnosis [facility] [address], [place] [id number] 08/28/2024 Thierry Teran Essential hypertensi on I10 ; Chronic renal failure, stage 3b N18.32 ; Primary insomnia F51.01 ; Nonischemic cardiomyopathy I42.8 ; Acquired hypothyroidism E03.9 ; Hypertensive heart and chronic kidney disease with heart failure and stage 1 through stage 4 chronic kidney disease, or unspecified chronic kidney disease I13.0 ; Cardiomyopathy, unspecified type I42.9 ; Ventricular tachycardia, unspecified I47.20 ; Chronic kidney disease, stage 4 (severe) N18.4 and Body mass index (BMI) less than 19 Z68.1 Assessments Encounter Date Diagnosis (ICD Code) Assessment Notes Treatment Notes Treatment Clinical Notes Section Notes 08/28/2024 Essential hypertension (ICD-10 - I10) 08/28/2024 Chronic renal failure, stage 3b (ICD-10 - N18.32) 08/28/2024 Primary insomnia (ICD-10 - F51.01) 08/28/2024 Nonischemic cardiomyopathy (ICD-10 - I42.8) 08/28/2024 Acquired hypothyroidism (ICD-10 - E03.9) 08/28/2024 Hypertensive heart and chronic kidney disease with heart failure and stage 1 through stage 4 chronic kidney disease, or unspecified chronic kidney disease (ICD-10 - I13.0) 08/28/2024 Cardiomyopathy, unspecified type (ICD-10 - I42.9) 08/28/2024 Ventricular tachycardia, unspecified (ICD-10 - I47.20) 08/28/2024 Chronic kidney disease, stage 4 (severe) (ICD-10 - N18.4) 08/28/2024 Body mass index (BMI) less than 19 (ICD-10 - Z68.1) Plan Of Treatment Medication Medication Name Sig Start Date Stop Date Notes traZODone HCl 50 MG 1 tab bedtime; Duration: 90 days Next Appt Details Follow Up: 5M, Reason: Provider Name:Thierry Harris er, 01/29/2025 03:00:00 PM, [address] [facility], [address] , [place], [place], [id number], Progress Notes * Omar PERALTADOB:1950 (74 yo M)Acc No.[id number]:08/28/2024 Progress Notes Patient: Omar ALEXANDER Provider: Thierry Teran M.D. :1950 A ge:73 Y S ex:Male Date:08/28/2024 Address:[address], [id number] Subjective: * Chief Complaints: * 1 . 5 month f/u. * HPI: C ardiology: The pt is here today for a check up on Hypertension and Hyperlipidemia. Pt states he is doing good and denies any new concerns. Pt states he is not fasting. Denies : Chest Pain. [...] Orally Once a day , Taking Nystatin-Triamcinolone 212571-9.1 UNIT/GM Cream 1 application Externally Twice a [...] , Taking traZODone HCl 50 MG Tablet TAKE 1 TABLET BY MOUTH ONCE DAILY NEEDED , Medication List reviewed and reconciled with the patient * Allergies: N .K.D.A. Objective: * Vitals: W t: 129.0, Temp: 98.4, BP: 134/72, HR: 51, Nurse: EMILY, Ht: 70.25, BMI:18.38. * Examination: G eneral Examination: General Appearance: [...] ssential hypertension - I10 (Primary) 2 . C hronic renal failure, stage 3b - N18.32 3 . P rimary insomnia - F51.01 4 . N onischemic cardiomyopathy - I42.8 5 . A cquired hypothyroidism - E03.9 6 . H ypertensive heart and chronic kidney disease with heart failure and stage 1 through stage 4 chronic kidney disease, or unspecified chronic kidney disease - I13.0 7 . C ardiomyopathy, unspecified type - I42.9 8 . V entricular tachycardia, unspecified - I47.20 9 . C hronic kidney disease, stage 4 (severe) - N18.4 1 0. B lashay mass index (BMI) less than 19 - Z68.1 Plan: * Treatment: Value Reference Range A /G Ratio 1.7 1.1-2.5 - * A lbumin 4.0 3.5-5.3 - g/dL * A lkaline Phosphatase 77 40-129 - IU/L * A LT (SGPT) 23 <5-55 - IU/L * A ST (SGOT) 33 <5-46 - IU/L * B ilirubin, Total 0.3 <0.2-1.2 - mg/dL * B UN 52 H 8-23 - mg/dL * C alcium 8.7 8.6-10.4 - mg/dL * C hloride 100 97-108 - mmol/L * C O2 26 20-32 - mmol/L * C reatinine 2.23 H 0.70-1.30 - mg/dL * G lucose 121 H 65-99 - mg/dL * P otassium 4.4 3.5-5.3 - mmol/L * S odium 136 135-145 - mmol/L * P rotein 6.4 6.0-8.3 - g/dL * e GFR by Creatinine 31 L >59 - mL/min/1.73m2 * Maricel Ferrer 09/12/2024 10:55 :24 AM EDT > See phone encounter 2.?Primary insomnia? Refill traZODone HCl Tablet, 50 MG, 1 tab, bedtime, 90 days, 90, Refills 0.?? * Procedure Codes: G 2211 Complex e/m visit add on, 1036F TOBACCO NON-USER, G8950 PREHTN/HTN BP DOC INDCD F/U DOC, G8752 MOST RECENT SYSTOLIC BP < 140MM HG, G8754 MOST RECENT DIASTOLIC BP < 90MM HG * Follow Up: 5 M * Images: Billing Information: * Visit Code: 07386 Office Visit, Est Pt., Level 4. * Procedure Codes: G2211 Complex e/m visit add on. 1036F TOBACCO NON-USER. G8950 PREHTN/HTN BP DOC INDCD F/U DOC. G8752 MOST RECENT SYSTOLIC BP < 140MM HG. G8754 MOST RECENT DIASTOLIC BP < 90MM HG. * Electronic signature of Thierry Teran MD on 01/20/2025 at 07:43 AM EST Sign off status: Pending * Provider: Thierry Teran M.D. Date: 0 08/28/2024 Generated for Sunil mccarty/Jose Eduardo/eTransmitting on: 1 03/23/2024 07:43 AM EST History and Physical Notes * [...]
--- OUTSIDE RECORDS SUMMARY | 2024-12-15 11:45 | XMS_ITS ---
[facility] Address [address] [place], [place] [address] Care Team Providers Care Curtain Supervisor Name Role Phone Thierry Teran Primary Care Provider Omar Colvin Unavailable [phone] Allergies No Known Allergies Reason For Referral Reason Patient needs to be seen this week. Diagnosis 1 Dislocation of left thumb, initial encounter (S63.105A) [facility] Referring Provider First Name Omar Referring Provider [...] morning Orally Once a day Active Nystatin-Triamcinolone 019949-1.1 UNIT/GM 1 application Externally Twice a day 02/19/2023 Active Metoprolol Succinate ER 25 MG 1/2 Orally Once a day Active Allopurinol 100 MG 1 tab(s) orally once a day Active HYDROcodone-Acetaminophen 5-325 MG 1 tablet as needed Orally every 6 hrs Active Cephalexin 500 MG 1 tablet Orally ever y 6 hrs Active Vital Signs Weight 129 lbs 12/15/2024 Blood pressure systolic 134 mm Hg 12/16/19 25 Blood pressure diastolic 76 mm Hg 025 Heart Rate 71 /min 12/15/2024 Height 70.25 in 12/15/2024 BMI 18.38 kg/m2 12/15/2024 Encounters Encounter Location Date Provider Diagnosis [facility] [address] [place] [address] [address] [facility] [address] [place], [place] [id number] 12/15/2024 Omar Colvin Visit for wound chec k Z51.89 and Dislocation of left thumb, initial encounter S63.105A Assessments Encounter Date Diagnosis (ICD Code) Assessment Notes Treatment Notes Treatment Clinical Notes Section Notes 12/15/2024 Visit for wound check (ICD-10 - Z51.89) KRISTEN and telfa placed over wound with rolled gauze and splint replaced 12/15/2024 Dislocation of left thumb, initial encounter (ICD-10 - S63.105A) Plan Of Treatment Treatment Notes Assessment Notes Visit for wound check KRISTEN and telfa plac ed over wound with rolled gauze and splint replaced Referrals Referral Date Details 12/15/2024 12/15/2024, Patient needs to be seen this week., Irvin Butler Next Appt Details Follow Up: via phone to repo rt progress, Reason: Provider Name:Theirry Harris er, 01/29/2025 03:00:00 PM, [address] [facility] [address] [facility], [address], [place], [id number], Progress Notes * Omar PERALTADOB:1950 (74 yo M)Acc No.[id number]:12/15/2024 Progress Notes Patient: Omar ALEXANDER Provider: Uday Colvin M.D. :1950 A ge:74 Y S ex:Male Date:12/15/2024 Address:[address], [place], [id number] Pcp:Thierry Teran Subjective: * Chief Complaints: * 1 . ER f/u. * HPI: H PI: 74 year old male presents with c/o Here for follow up on: P t here for ER follow up from [facility] in [facility]. Pt was out of town and [...] Orally Once a day , Taking Nystatin-Triamcinolone 367423-3.1 UNIT/GM Cream 1 application Externally Twice a [...] Temp: 98.0, BP: 134/76, HR: 71, Nurse: ARMANDO, Ht: 70.25, BMI:18.38. * Examination: G eneral Examination: General Appearance: N AD. P eripheral pulses: w ound on the palmar surface of the left thumb with [address], no surrounding skin redness, no drainage. E xtremities: l eft hand in a thumb spica splint. Assessment: * Assessment: 1. V isit for wound check - Z51.89 (Primary) 2 . D islocation of left thumb, initial encounter - S63.105A Plan: * Treatment: 2. D islocation of left thumb, initial encounter Referral To:Irvin Butler Orthopedic Surgery Reason:Patient needs to be seen this week. * Procedure Codes: G 2211 Complex e/m visit add on * Follow Up: v ia phone to report progress * Images: Billing Information: * Visit Code: 67056 Office Visit, Est Pt., Level 3. * Procedure Codes: G2211 Complex e/m visit add on. * Electronic signature of Cheyanne Colvin MD on 01/20/2025 at 07:44 AM EST Sign off status: Pending * Provider: Uday Colvin M.D. Date: 02/15/2024 Generated for Sunil mccarty/Jose Eduardo/Maurisioitting on: 03/23/2024 07:44 AM EST History and Physical Notes * HPI (History of Present Illness) Category Sub-Category Detail Notes Category Not es HPI Here for follow up on: Pt here f or ER follow up from [facility] in [facility]. Pt was out of town and dislocated his thumb and had to get 4 stitches. Pt states he needs a referral to orthopedics Examination Category Sub-Category Detail Notes Category Not es General Examination Extremities: left hand in a thumb spica splint General Appearance: NAD Peripheral pulses: wound on the palmar surface of the left thumb with [address], no surrounding skin redness, no drainage Consultation Request Notes Referral Date Referring Provider Referred Provider Not es 12/15/2024 Omar Colvin Jason Patient need s to be seen this week.
--- OUTSIDE RECORDS SUMMARY | 2025-01-20 07:44 | XMS_ITS | Patient Health Record ---
[facility] [address] [facility] [place] [address] [facility] [address] [place] [id number] Care Team Providers Care Orthopedics Teacher Name Role Phone Thierry Teran Primary Care Provider [phone] Omar Colvin Unavailable [phone] Allergies No Known Allergies Results Component Value Reference Range Notes P-Comprehensive Metabolic Pa rivka (CMP) Reviewed date:09/12/2024 10:55:32 AM Interpretation:gluc 121, bun 52, Cr 2.23, gfr 31 Performing Lab: Notes/Report: Test performed by [facility] [address] , [address], [place] [address] Deng Hernandez MD, Resident Assistant CLIA: [id number] Sodium 136 135-145 mmol/L Potassium 4.4 3.5-5.3 [...] Last Name Vinicius Referring Provider Speciality Family [facility] Referred Provider Irvin Butler Referred Provider Specialty Orthopedic S urgery General Notes Joseph Cowannn 2024 09:08:15 AM > patient can be seen today at 1:15pm; lvm for patient to call me back to ensure he got the message, Camryn Autumn 12/16/2024 10:04:33 AM > patient informed Referral Priority Routine Medications Medication SIG (Take, Route, Frequency, Duration) Notes Start Date End Date Status hydroCHLOROthiazide 25 MG 1/2 tablet in the morning Orally Once a day Active Nystatin-Triamcinolone 761677-2.1 UNIT/GM 1 application Externally Twice a day [...] 08/31/2016 Administered xFlu shot- 6months-36 months of ykq-XCMU-RPMX-trivalent Unknown 2015 Administered xFlu shot-36 months and older Unknown 2015 Administered Problems Problem Type SNOMED Code ICD Code Onset Dates Problem Status W/U Status Risk Notes Problem Essential hypertension (38405928) Essential hypertension (I10) Active confirmed Problem Tinea corporis (35456944) Tinea corporis (B35.4) Active confirmed Problem Pure hypercholesterolemia (889308169) Pure hypercholesterolemia (E78.0) Active confirmed Problem Primary insomnia (7047448) Primary insomnia (F51.01) Active confirmed Problem Hypertensive heart AND chronic kidney disease with congestive heart failure (34787286527223) Hypertensive heart and chronic kidney disease with heart failure and stage 1 through stage 4 chronic kidney disease, or unspecified chronic kidney disease (I13.0) Active confirmed Problem Chronic kidney disease stage 4 (718105590) Chronic kidney disease, stage 4 (severe) (N18.4) Active confirmed Problem Vasovagal syncope (188111169) Vasovagal syncope (R55) Active confirmed Problem Acquired hypothyroidism (011197339) Acquired hypothyroidism (E03.9) Active confirmed Problem Renal insufficiency (166595526) Renal insufficiency (N28.9) Active confirmed Problem Cardiac dysrhythmia (008501737) Cardiac dysrhythmia, unspecified (I49.9) Active confirmed Problem Prostatic hypertroph y (099709574) Prostatic hypertrophy (N40.0) Active confirmed Problem Seasonal allergic rhinitis (532979921) Seasonal allergic rhinitis, unspecified allergic rhinitis trigger (J30.2) Active confirmed Problem Prostate nodule (726485158992240) Prostate nodule (N40.2) Active confirmed Problem Cardiomyopathy (17118441) Cardiomyopathy, unspecified type (I42.9) Active confirmed Problem Pain due to varicose veins of lower extremity (315454658) 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) Active confirmed Problem Villous adenoma of colon (107002011) Villous adenoma of colon (D37.4) Active confirmed Problem Cardiomyopathy (66629239) Nonischemic cardiomyopathy (I42.8) Active confirmed Problem Chronic kidney disease stage 3B (disorder) (923175193) Chronic renal failure, stage 3b (N18.32) Active confirmed Vital Signs Heart Rate 71 /min 12/15/2024 Blood pressure diastolic 76 mm Hg 12/15/2024 Height 70.25 in 12/15/2024 Blood pressure systolic 134 mm Hg 12/15/2024 Weight 129 lbs 12/15/2024 BMI 18.38 kg/m2 12/15/2024 Encounters Encounter Location Date Provider [facility] [address] [place] [id number] 03/27/2024 Thierry Teran Chronic renal failur e, stage 3b N18.32 [facility] [address] [place] [id number] 08/28/2024 Thierry Teran Essential hypertensi on I10 [...] mass index (BMI) less than 19 Z68.1 [facility] [address] [place] [id number] 12/15/2024 Omar Vinicius Visit for wound chec k Z51.89 and Dislocation of left thumb, initial encounter S63.105A [facility] [address] [place] [id number] 09/09/2024 Thierry Teran Colon cancer screeni ng Z12.11 [facility] [address] [place] [id number] 09/12/2024 Thierry Teran [facility] [address] [place] [id number] 12/15/2024 Thierry Teran Assessments Encounter Date Diagnosis [...] colonoscopy 09/09/2024 Next Appt Details Provider Name:Thierry Harris er, 01/29/2025 03:00:00 PM, [address] [facility], [address], [place], [place], [id number], Insurance Providers Payer Name Payer Address Payer Phone Subscriber Number Group Number Insured Name Patient Relationship to Insured Coverage Start Date Coverage End Date MEDICARE PART B [address] [address] [place] [id number] [phone] [id number] Omar Peralta Self - patient is the insured [facility] [employer] [address] [place] [address] [phone] [id number] Omar Peralta Self - patient is the [...]
[2025-01-20 07:45] LABS: Microscopic, Urine URINE MICROSCOPIC (MICROSCOPIC)
[2025-01-20 08:17] LABS: Hematocrit 34.4 % (42.0-52.0); Hemoglobin 11.3 g/dL (14.1-18.0); Mean Corpuscular HGB Conc 32.8 g/dL (31.8-35.4); Mean Corpuscular Hemoglobin 31.7 pg (27.0-31.2); Mean Corpuscular Volume 96.6 fl (80-94); Nucleated Red Blood Cells % 0 %; Platelet Count 175 K/mm3 (142-424); Red Blood Count 3.56 M/mm3 (4.60-6.20); Red Cell Distribution Width-SD 48.7 fL; White Blood Count 4.6 K/mm3 (4.8-10.8)
[2025-01-20 08:55] LABS: Alanine Aminotransferase 30 U/L (12-78); Albumin Level 4.0 g/dl (3.5-5.0); Albumin/Globulin Ratio 1.7 (1.1-1.8); Alkaline Phosphatase 92 U/L (38-126); Anion Gap 13.3 mEq/L (5-15); Aspartate Amino Transferase 39 U/L (17-59); Bilirubin,Total 0.4 mg/dl (0.2-1.3); Blood Urea Nitrogen 56 mg/dl (9-20); Calcium 8.9 mg/dl (8.4-10.2); Carbon Dioxide 25 mmol/L (22.0-30.0); Chloride 101 mmol/L (98-107); Creatinine,Serum 2.00 mg/dl (0.66-1.25); Estimated Glomerular Filt Rate 33 ml/min (>60); GFR (African American) 40 ML/MIN (>60); Globulin 2.4 g/dL (1.3-3.2); Glucose 92 mg/dl (74-100); Potassium 4.3 mmoL/L (3.5-5.1); Sodium 135 mmol/L (136-145); Total Protein,Serum 6.4 g/dl (6.3-8.2)
[2025-01-20 09:04] LABS: 25-OH Vitamin D, Total 36.0 ng/mL (30-100)
[2025-01-20 09:16] LABS: Bilirubin,Urine Negative (Negative); Color,Urine YELLOW (Yellow); Glucose,Urine (UA) Negative (Negative); Ketones,Urine Negative (Negative); Leukocyte Esterase,Urine Negative (Negative); PH,Urine 6.0 (5.0-8.5); Protein,Urine Negative (Negative); Specific Gravity, Urine 1.010 (1.005-1.030); Urobilinogen,Urine 0.2 EU/dl (0.2)
== END 2025-01-20 23:59 | disposition home or self-care (01) ==
LOC: LAB 07:40
PROVIDERS: PCP Family Medicine; Visit Provider Internal Medicine Nephrology
DX: I12.9 Hypertensive chronic kidney disease with stage 1 through stage 4 chronic kidney disease, or unspecified chronic kidney disease (principal); N18.32 Chronic kidney disease, stage 3b; E03.9 Hypothyroidism, unspecified; N40.0 Benign prostatic hyperplasia without lower urinary tract symptoms; E55.9 Vitamin D deficiency, unspecified; E79.0 Hyperuricemia without signs of inflammatory arthritis and tophaceous disease
CPT/HCPCS: 36415; 80053; 81001; 82306; 82570; 83970; 84156; 85027